=== PATIENT | male | born 1960 | race Caucasian/White ===

== ENCOUNTER 2016-12-11 13:48 | Inpatient (IN) ==
[2016-12-11] MEDS ORDERED: ONDANSETRON 4 MG/2 ML VIAL IV PRN (13:52)
[2016-12-11] MEDS ORDERED: GLUCAGON 1 MG VIAL IM PRN (13:52)
[2016-12-11] MEDS ORDERED: ACETAMINOPHEN 325 MG TABLET PO PRN (13:52)
[2016-12-11] MEDS ORDERED: DEXTROSE 50% 25 GM/50 ML VIAL IV PRN (13:52)
[2016-12-11] MEDS ORDERED: INFLUENZA VIRUS VACCINE 0.5 ML SYRINGE IM ONE (15:42)
[2016-12-11 16:44] LABS: Basophils # 0.1 10*3/uL (0.0-0.2); Basophils % 0.5 % (0.0-0.8); Eosinophils # 0.2 10*3/uL (0.0-0.87); Eosinophils % 1.9 % (0.00-10.9); Hematocrit 44.2 VOL% (42.0-52.0); Hemoglobin 14.5 GM/DL (14.0-18.0); Immature Granulocytes % 0.8 %; Immature Granulocytes Absolute 0.08 #; Lymphocytes # 2.2 10*3/uL (1.4-4.0); Lymphocytes % 22.7 % (21.2-54.2); Mean Corpuscular HGB Conc 32.8 GM/DL (32-36); Mean Corpuscular Hemoglobin 29 PG (27-34); Mean Platelet Volume 10.5 FL (9.6-12.0); Monocytes # 1.3 10*3/uL (0.11-0.8); Monocytes % 13.1 % (1.7-12.7); Neutrophils # 5.9 10*3/uL (1.4-7.4); Platelet Count 335 T/CUMM (130-400); Red Blood Count 5.02 MC/CUMM (3.8-5.5); Red Cell Distribution Width 14.6 % (9.3-17.3); White Blood Count 9.7 T/CUMM (4-12)
[2016-12-11 17:11] LABS: Alanine Aminotransferase 37 U/L (16-61); Albumin 3.9 G/DL (3.4-5.0); Alkaline Phosphatase 156 U/L (45-117); Aspartate Amino Transferase 27 U/L (0-37); Bilirubin,Total < 0.39 MG/DL (0.2-1.0); Blood Urea Nitrogen 30 MG/DL (7-18); Calcium 9.8 MG/DL (8.5-10.1); Glucose 152 MG/DL (74-106); Potassium 4.7 MMOL/L (3.5-5.1); Sodium 136 MMOL/L (136-145); Total Protein 8.2 G/DL (6.4-8.3)
[2016-12-11] MEDS: SODIUM CHLORIDE 0.45% 1,000 ML IV SCH (18:49)
[2016-12-11] MEDS: INSULIN REGULAR 100 UNIT/ML SUBCUT SCH ×2 (18:50→21:21)
[2016-12-11] MEDS: ENOXAPARIN 40 MG/0.4 ML SYRINGE SUBCUT SCH (18:50)
[2016-12-11] MEDS: DOCUSATE SODIUM 100 MG CAPSULE PO SCH (21:21)
[2016-12-11] MEDS: LEVOFLOXACIN INJ 750 MG in PREMIX 1 EACH IV SCH (21:22)
[2016-12-11 21:58] LABS: Apearance,Urine CLEAR (Clear); Bilirubin,Urine Negative (Negative); Blood, Urine Negative (Negative); Glucose,Urine (UA) >=500 mg/dL (Negative); Ketones,Urine 20 mg/dL (Negative); Nitrite,Urine Negative (Negative); Protein,Urine Negative; RBC,Urine 1 /HPF (0-4); Urine Color Yellow (Yellow); Urine Specific Gravity 1.025 (1.001-1.035); Urine Urobilinogen < 2.0 EU/DL (0.2-1.0); WBC,Urine 18 /HPF (0-6)
[2016-12-12 05:58] LABS: Basophils % 0.4 % (0.0-0.8); Eosinophils # 0.2 10*3/uL (0.0-0.87); Eosinophils % 1.8 % (0.00-10.9); Hemoglobin 15.4 GM/DL (14.0-18.0); Immature Granulocytes % 1.1 %; Immature Granulocytes Absolute 0.12 #; Lymphocytes # 2.1 10*3/uL (1.4-4.0); Mean Corpuscular HGB Conc 33.5 GM/DL (32-36); Mean Corpuscular Hemoglobin 29 PG (27-34); Mean Platelet Volume 10.8 FL (9.6-12.0); Monocytes # 1.4 10*3/uL (0.11-0.8); Monocytes % 13.1 % (1.7-12.7); Neutrophils # 7.1 10*3/uL (1.4-7.4); Neutrophils % 64.6 % (38.7-73.9); Platelet Count 335 T/CUMM (130-400); Red Blood Count 5.29 MC/CUMM (3.8-5.5); Red Cell Distribution Width 14.4 % (9.3-17.3)
[2016-12-12 06:30] LABS: Calcium 9.9 MG/DL (8.5-10.1); Osmolality,Calculated 277.1 MOS/KG (273-304); Potassium 4.4 MMOL/L (3.5-5.1)
[2016-12-12 06:33] LABS: Risk Ratio 4.6; VLDL CHOLESTEROL 36.6 MG/DL
[2016-12-12] MEDS ORDERED: DIAZEPAM 5 MG TABLET PO ONE (08:03)
[2016-12-12] MEDS: INSULIN REGULAR 100 UNIT/ML SUBCUT SCH ×4 (08:53→21:14)
[2016-12-12] MEDS: HYDROmorphone 2 MG/1 ML VIAL IV PRN ×2 (10:01→15:03)
[2016-12-12] MEDS: DOCUSATE SODIUM 100 MG CAPSULE PO SCH ×2 (10:22→21:14)
[2016-12-12] MEDS: PANTOPRAZOLE 40 MG TABLET PO SCH (10:22)
[2016-12-12] MEDS ORDERED: PROPOFOL 200 MG/20 ML VIAL IV ONE ×2 (11:38→15:11)
[2016-12-12] MEDS ORDERED: fentaNYL 100 MCG/2 ML VIAL ONE (11:39)
[2016-12-12] MEDS ORDERED: DESFLURANE 1 UNIT/15 MINUTE INH ONE (11:39)
[2016-12-12] MEDS ORDERED: MIDAZOLAM 2 MG/2 ML VIAL ONE (11:39)
[2016-12-12] MEDS ORDERED: SUCCINYLCHOLINE 200 MG/10 ML VIAL ONE ×2 (11:39→15:11)
[2016-12-12] MEDS ORDERED: ACETAMINOPHEN 1,000 MG/100 ML VIAL IV ONE (11:39)
[2016-12-12] MEDS ORDERED: hydrALAZINE 20 MG/1 ML VIAL ONE (11:51)
[2016-12-12] MEDS ORDERED: hydrALAZINE 20 MG/1 ML VIAL IV ONE ×2 (11:54→12:08)
[2016-12-12] MEDS ORDERED: ONDANSETRON 4 MG/2 ML VIAL ONE ×2 (12:12→15:11)
[2016-12-12] MEDS ORDERED: ONDANSETRON 4 MG/2 ML VIAL IV PRN (12:16)
[2016-12-12] MEDS ORDERED: LABETALOL 20 MG/4 ML SYRINGE IV ONE (12:21)
[2016-12-12] MEDS ORDERED: LIDOCAINE 1% 5 ML VIAL ONE (15:11)
[2016-12-12] MEDS ORDERED: ROCURONIUM 100 MG/10 ML VIAL IV ONE (15:11)
[2016-12-12] MEDS: SODIUM CHLORIDE 0.45% 1,000 ML IV SCH ×2 (16:22→20:02)
[2016-12-12] MEDS: PIPERACILLIN/TAZOBACTAM 3,375 MG in SODIUM CHLORIDE 0.9% 100 ML IV SCH (17:52)
[2016-12-12] MEDS: ENOXAPARIN 40 MG/0.4 ML SYRINGE SUBCUT SCH (21:14)
[2016-12-12] MEDS: LEVOFLOXACIN INJ 750 MG in PREMIX 1 EACH IV SCH (21:14)
[2016-12-12] MEDS: LINEZOLID INJ 600 MG in PREMIX 1 EACH IV SCH (21:15)
[2016-12-13] MEDS: PIPERACILLIN/TAZOBACTAM 3,375 MG in SODIUM CHLORIDE 0.9% 100 ML IV SCH ×3 (01:31→19:13)
[2016-12-13] MEDS: SODIUM CHLORIDE 0.45% 1,000 ML IV SCH ×2 (04:12→17:35)
[2016-12-13] MEDS: DOCUSATE SODIUM 100 MG CAPSULE PO SCH ×2 (10:18→23:13)
[2016-12-13] MEDS: INSULIN REGULAR 100 UNIT/ML SUBCUT SCH ×4 (10:18→22:51)
[2016-12-13] MEDS: PANTOPRAZOLE 40 MG TABLET PO SCH (10:18)
[2016-12-13] MEDS: LINEZOLID INJ 600 MG in PREMIX 1 EACH IV SCH ×2 (10:20→23:13)
[2016-12-13] MEDS: LEVOFLOXACIN INJ 750 MG in PREMIX 1 EACH IV SCH (22:00)
[2016-12-13] MEDS: HYDROmorphone 2 MG/1 ML VIAL IV PRN (22:47)
[2016-12-13] MEDS: ENOXAPARIN 40 MG/0.4 ML SYRINGE SUBCUT SCH (22:53)
[2016-12-14] MEDS: PIPERACILLIN/TAZOBACTAM 3,375 MG in SODIUM CHLORIDE 0.9% 100 ML IV SCH ×3 (02:08→17:10)
[2016-12-14] MEDS: INSULIN REGULAR 100 UNIT/ML SUBCUT SCH ×4 (09:18→21:16)
[2016-12-14] MEDS: DOCUSATE SODIUM 100 MG CAPSULE PO SCH ×2 (09:19→21:19)
[2016-12-14] MEDS: PANTOPRAZOLE 40 MG TABLET PO SCH (09:19)
[2016-12-14] MEDS: LINEZOLID INJ 600 MG in PREMIX 1 EACH IV SCH ×2 (09:20→21:13)
[2016-12-14] MEDS: SODIUM CHLORIDE 0.45% 1,000 ML IV SCH ×3 (09:26→19:30)
[2016-12-14] MEDS: ENOXAPARIN 40 MG/0.4 ML SYRINGE SUBCUT SCH (21:15)
[2016-12-14] MEDS: LEVOFLOXACIN INJ 750 MG in PREMIX 1 EACH IV SCH (22:18)
[2016-12-15] MEDS: PIPERACILLIN/TAZOBACTAM 3,375 MG in SODIUM CHLORIDE 0.9% 100 ML IV SCH ×3 (01:27→17:58)
[2016-12-15] MEDS ORDERED: ALUMINUM/MAGNES/SIMETH MAX STR 30 ML UDCUP PO PRN (03:26)
[2016-12-15 05:27] LABS: Basophils # 0.1 10*3/uL (0.0-0.2); Basophils % 0.7 % (0.0-0.8); Eosinophils # 0.2 10*3/uL (0.0-0.87); Eosinophils % 3.6 % (0.00-10.9); Hematocrit 41.8 VOL% (42.0-52.0); Hemoglobin 13.8 GM/DL (14.0-18.0); Immature Granulocytes % 0.9 %; Immature Granulocytes Absolute 0.06 #; Lymphocytes % 29.6 % (21.2-54.2); Mean Corpuscular Hemoglobin 29 PG (27-34); Mean Corpuscular Volume 87.3 FL (87-102); Mean Platelet Volume 10.7 FL (9.6-12.0); Monocytes % 14.2 % (1.7-12.7); Neutrophils # 3.4 10*3/uL (1.4-7.4); Platelet Count 280 T/CUMM (130-400); Red Blood Count 4.79 MC/CUMM (3.8-5.5); Red Cell Distribution Width 14.4 % (9.3-17.3); White Blood Count 6.8 T/CUMM (4-12)
[2016-12-15] MEDS: HYDROmorphone 2 MG/1 ML VIAL IV PRN ×2 (05:33→20:47)
[2016-12-15] MEDS: SODIUM CHLORIDE 0.45% 1,000 ML IV SCH ×2 (05:37→17:09)
[2016-12-15 06:03] LABS: Calcium 8.6 MG/DL (8.5-10.1); Magnesium 2.2 MG/DL (1.8-2.4); Osmolality,Calculated 280.5 MOS/KG (273-304); Potassium 4.1 MMOL/L (3.5-5.1)
[2016-12-15] MEDS: INSULIN REGULAR 100 UNIT/ML SUBCUT SCH ×4 (08:55→20:50)
[2016-12-15] MEDS: DOCUSATE SODIUM 100 MG CAPSULE PO SCH ×2 (08:57→20:47)
[2016-12-15] MEDS: PANTOPRAZOLE 40 MG TABLET PO SCH (08:57)
[2016-12-15] MEDS: LINEZOLID INJ 600 MG in PREMIX 1 EACH IV SCH ×2 (09:58→22:30)
[2016-12-15] MEDS: ENOXAPARIN 40 MG/0.4 ML SYRINGE SUBCUT SCH (20:47)
[2016-12-15] MEDS: LEVOFLOXACIN INJ 750 MG in PREMIX 1 EACH IV SCH (20:52)
[2016-12-16] MEDS: PIPERACILLIN/TAZOBACTAM 3,375 MG in SODIUM CHLORIDE 0.9% 100 ML IV SCH ×2 (01:47→10:16)
[2016-12-16] MEDS: HYDROmorphone 2 MG/1 ML VIAL IV PRN (04:41)
[2016-12-16] MEDS: SODIUM CHLORIDE 0.45% 1,000 ML IV SCH (04:45)
[2016-12-16] MEDS ORDERED: PIOGLITAZONE 45 MG TABLET PO SCH (09:00)
[2016-12-16] MEDS ORDERED: TRIAMTERENE/HCTZ 37.5-25 MG CAPSULE PO SCH (09:00)
[2016-12-16] MEDS ORDERED: glipiZIDE 10 MG TABLET PO SCH (09:00)
[2016-12-16] MEDS ORDERED: LOSARTAN 50 MG TABLET PO SCH (09:00)
[2016-12-16] MEDS ORDERED: GABAPENTIN 400 MG CAPSULE PO SCH (09:00)
[2016-12-16] MEDS ORDERED: NON-FORMULARY MEDICATION (Canagliflozin [Invokana] 100 MG) PO SCH (09:00)
[2016-12-16] MEDS: DOCUSATE SODIUM 100 MG CAPSULE PO SCH (10:03)
[2016-12-16] MEDS: INSULIN REGULAR 100 UNIT/ML SUBCUT SCH ×2 (10:03→12:17)
[2016-12-16] MEDS: PANTOPRAZOLE 40 MG TABLET PO SCH (10:03)
[2016-12-16] MEDS: LINEZOLID INJ 600 MG in PREMIX 1 EACH IV SCH (10:16)
[2016-12-16 11:51] VITALS: BP 172/97
== END 2016-12-16 15:21 | disposition home health service (06) | DRG 623 ==
LOC: N.2E 15:06
PROVIDERS: ADMIT Family Medicine; ATTEND Family Medicine

== ENCOUNTER 2017-04-07 08:31 | Inpatient (IN) ==
[2017-04-04 11:57] LABS: Basophils % 0.2 % (0.0-0.8); Eosinophils # 0.1 10*3/uL (0.0-0.87); Eosinophils % 0.5 % (0.00-10.9); Hematocrit 38.5 VOL% (42.0-52.0); Hemoglobin 12.2 GM/DL (14.0-18.0); Immature Granulocytes % 0.6 %; Immature Granulocytes Absolute 0.09 #; Lymphocytes # 1.7 10*3/uL (1.4-4.0); Lymphocytes % 11.3 % (21.2-54.2); Mean Corpuscular HGB Conc 31.7 GM/DL (32-36); Mean Corpuscular Hemoglobin 27 PG (27-34); Mean Corpuscular Volume 84.1 FL (87-102); Mean Platelet Volume 9.9 FL (9.6-12.0); Monocytes # 1.5 10*3/uL (0.11-0.8); Monocytes % 10.4 % (1.7-12.7); Neutrophils # 11.4 10*3/uL (1.4-7.4); Platelet Count 369 T/CUMM (130-400); Red Blood Count 4.58 MC/CUMM (3.8-5.5); Red Cell Distribution Width 15.9 % (9.3-17.3); White Blood Count 14.8 T/CUMM (4-12)
[2017-04-04 12:07] LABS: Apearance,Urine CLEAR (Clear); Bilirubin,Urine Negative (Negative); Blood, Urine Negative (Negative); Glucose,Urine (UA) >=500 mg/dL (Negative); Hyaline Casts,Urine 1 /LPF (0-3); Ketones,Urine Negative (Negative); Mucus,Urine Occasional /LPF (Occasional); Nitrite,Urine Negative (Negative); Protein,Urine Negative; RBC,Urine 3 /HPF (0-4); Squamous Epithelial Cell,Urine Occasional /HPF (0-10); Urine Color Yellow (Yellow); Urine Specific Gravity 1.026 (1.001-1.035); Urine Urobilinogen < 2.0 EU/DL (0.2-1.0); WBC,Urine 79 /HPF (0-6)
[2017-04-04 12:17] LABS: Potassium 3.8 MMOL/L (3.5-5.1)
[2017-04-07] MEDS ORDERED: LACTATED RINGERS 1,000 ML IV SCH (09:30)
[2017-04-07] MEDS ORDERED: SCOPOLAMINE 1.5 MG PATCH TRANSDERM ONE ×2 (09:56→10:50)
[2017-04-07] MEDS ORDERED: FAMOTIDINE 20 MG TABLET PO ONE (09:56)
[2017-04-07] MEDS ORDERED: DIAZEPAM 5 MG TABLET PO ONE (09:56)
[2017-04-07] MEDS ORDERED: DIAZEPAM 5 MG TABLET ONE (10:50)
[2017-04-07] MEDS ORDERED: FAMOTIDINE 20 MG TABLET ONE (10:50)
[2017-04-07] MEDS ORDERED: ROPIVACAINE 0.5% 30 ML VIAL ONE (11:29)
[2017-04-07] MEDS ORDERED: fentaNYL 100 MCG/2 ML VIAL ONE (11:32)
[2017-04-07] MEDS ORDERED: MIDAZOLAM 2 MG/2 ML VIAL ONE (11:32)
[2017-04-07] MEDS ORDERED: ceFAZolin 2,000 MG in PREMIX 1 EACH IV ONE (12:00)
[2017-04-07] MEDS ORDERED: BUPIVACAINE 0.5% 50 ML VIAL ONE (12:02)
[2017-04-07] MEDS ORDERED: VANCOMYCIN 1,000 MG VIAL ONE (13:12)
[2017-04-07] MEDS ORDERED: TOBRAMYCIN 1.2 GM VIAL TOP ONE (13:12)
[2017-04-07] MEDS ORDERED: GLUCAGON 1 MG VIAL IM PRN (13:42)
[2017-04-07] MEDS ORDERED: DEXTROSE 50% 25 GM/50 ML VIAL IV PRN (13:42)
[2017-04-07] MEDS ORDERED: ONDANSETRON 4 MG/2 ML VIAL IV PRN (13:43)
[2017-04-07] MEDS ORDERED: MAGNESIUM HYDROXIDE SUSP 30 ML UDCUP PO PRN (13:43)
[2017-04-07] MEDS ORDERED: MORPHINE 2 MG/1 ML SYRINGE IV PRN ×2 (13:43)
[2017-04-07] MEDS ORDERED: ACETAMINOPHEN 325 MG TABLET PO PRN (13:43)
[2017-04-07] MEDS ORDERED: PROPOFOL 200 MG/20 ML VIAL IV ONE (13:50)
[2017-04-07] MEDS ORDERED: SEVOFLURANE 1 UNIT/15 MINUTE INH ONE (13:51)
[2017-04-07] MEDS ORDERED: AMPICILLIN/SULBACTAM 3,000 MG in SODIUM CHLORIDE 0.9% 100 ML IV SCH (14:00)
[2017-04-07] MEDS ORDERED: ceFAZolin 2,000 MG in PREMIX 1 EACH IV SCH (14:00)
[2017-04-07] MEDS: INSULIN LISPRO 100 UNIT/ML SUBCUT SCH ×2 (17:32→21:22)
[2017-04-07] MEDS: OXACILLIN 2,000 MG in SODIUM CHLORIDE 0.9% 100 ML IV SCH ×2 (18:23→21:25)
[2017-04-07] MEDS: KETOROLAC 30 MG/1 ML VIAL IV PRN (21:20)
[2017-04-07] MEDS: LOSARTAN 50 MG TABLET PO SCH (21:21)
[2017-04-07] MEDS: GABAPENTIN 400 MG CAPSULE PO SCH (21:35)
[2017-04-08] MEDS: OXACILLIN 2,000 MG in SODIUM CHLORIDE 0.9% 100 ML IV SCH ×7 (01:05→23:47)
[2017-04-08 04:22] LABS: Basophils % 0.5 % (0.0-0.8); Eosinophils # 0.3 10*3/uL (0.0-0.87); Eosinophils % 3.1 % (0.00-10.9); Hematocrit 35.3 VOL% (42.0-52.0); Hemoglobin 10.9 GM/DL (14.0-18.0); Immature Granulocytes % 0.5 %; Immature Granulocytes Absolute 0.04 #; Lymphocytes # 2.3 10*3/uL (1.4-4.0); Lymphocytes % 27.6 % (21.2-54.2); Mean Corpuscular HGB Conc 30.9 GM/DL (32-36); Mean Corpuscular Hemoglobin 26 PG (27-34); Mean Corpuscular Volume 85.3 FL (87-102); Mean Platelet Volume 10.2 FL (9.6-12.0); Monocytes # 1.5 10*3/uL (0.11-0.8); Monocytes % 17.6 % (1.7-12.7); Neutrophils # 4.3 10*3/uL (1.4-7.4); Neutrophils % 50.7 % (38.7-73.9); Platelet Count 384 T/CUMM (130-400); Red Blood Count 4.14 MC/CUMM (3.8-5.5); Red Cell Distribution Width 15.5 % (9.3-17.3); White Blood Count 8.5 T/CUMM (4-12)
[2017-04-08 04:53] LABS: Calcium 9.2 MG/DL (8.5-10.1); Osmolality,Calculated 282.5 MOS/KG (273-304); Potassium 4.1 MMOL/L (3.5-5.1)
[2017-04-08 05:09] LABS: Band Neutrophils 1 % (0-10); Eosinophils 5 % (0-10); Giant Platelets Few; Hypochromasia 1+; Lymphocytes 29 % (20-55); Microcytosis Slight; Platelet Estimate Adequate; Segmented Neutrophils 51 % (50-85); Total Cells Counted 100
[2017-04-08] MEDS ORDERED: FONDAPARINUX 2.5 MG/0.5 ML SYRINGE SUBCUT SCH (08:00)
[2017-04-08] MEDS: INSULIN LISPRO 100 UNIT/ML SUBCUT SCH ×4 (08:30→20:39)
[2017-04-08] MEDS: PIOGLITAZONE 45 MG TABLET PO SCH (08:33)
[2017-04-08] MEDS: TRIAMTERENE/HCTZ 37.5-25 MG CAPSULE PO SCH (08:37)
[2017-04-08] MEDS: GABAPENTIN 400 MG CAPSULE PO SCH ×2 (08:37→20:47)
[2017-04-08] MEDS ORDERED: Canagliflozin [Invokana] 100 MG PO SCH (09:00)
[2017-04-08] MEDS ORDERED: INSULIN DEGLUDEC 12 UNIT SQ SCH (09:00)
[2017-04-08] MEDS: LEVOFLOXACIN INJ 500 MG in PREMIX 1 EACH IV SCH (18:49)
[2017-04-08] MEDS: LOSARTAN 50 MG TABLET PO SCH (20:40)
[2017-04-08] MEDS: KETOROLAC 30 MG/1 ML VIAL IV PRN (20:41)
[2017-04-09] MEDS: OXACILLIN 2,000 MG in SODIUM CHLORIDE 0.9% 100 ML IV SCH ×5 (03:59→20:42)
[2017-04-09 05:28] LABS: Basophils # 0.1 10*3/uL (0.0-0.2); Basophils % 0.6 % (0.0-0.8); Eosinophils # 0.4 10*3/uL (0.0-0.87); Hematocrit 36.9 VOL% (42.0-52.0); Hemoglobin 11.2 GM/DL (14.0-18.0); Immature Granulocytes % 1.5 %; Immature Granulocytes Absolute 0.12 #; Lymphocytes # 2.5 10*3/uL (1.4-4.0); Lymphocytes % 30.9 % (21.2-54.2); Mean Corpuscular HGB Conc 30.4 GM/DL (32-36); Mean Corpuscular Hemoglobin 26 PG (27-34); Mean Corpuscular Volume 86.4 FL (87-102); Mean Platelet Volume 9.7 FL (9.6-12.0); Monocytes # 1.2 10*3/uL (0.11-0.8); Monocytes % 14.4 % (1.7-12.7); Neutrophils # 3.8 10*3/uL (1.4-7.4); Neutrophils % 47.6 % (38.7-73.9); Platelet Count 390 T/CUMM (130-400); Red Blood Count 4.27 MC/CUMM (3.8-5.5); Red Cell Distribution Width 15.5 % (9.3-17.3)
[2017-04-09 06:07] LABS: Alanine Aminotransferase 12 U/L (16-61); Albumin 2.6 G/DL (3.4-5.0); Alkaline Phosphatase 190 U/L (45-117); Aspartate Amino Transferase 15 U/L (0-37); Bilirubin,Total < 0.39 MG/DL (0.2-1.0); Blood Urea Nitrogen 27 MG/DL (7-18); Calcium 8.5 MG/DL (8.5-10.1); Glucose 142 MG/DL (74-106); Osmolality,Calculated 281.7 MOS/KG (273-304); Potassium 4.6 MMOL/L (3.5-5.1); Sodium 138 MMOL/L (136-145); Total Protein 6.8 G/DL (6.4-8.3)
[2017-04-09] MEDS: INSULIN LISPRO 100 UNIT/ML SUBCUT SCH ×4 (07:07→22:47)
[2017-04-09] MEDS ORDERED: MIDAZOLAM 2 MG/2 ML VIAL ONE (10:04)
[2017-04-09] MEDS ORDERED: PROPOFOL 200 MG/20 ML VIAL IV ONE (10:04)
[2017-04-09] MEDS ORDERED: fentaNYL 100 MCG/2 ML VIAL ONE (10:04)
[2017-04-09] MEDS ORDERED: ONDANSETRON 4 MG/2 ML VIAL ONE (10:05)
[2017-04-09] MEDS: PIOGLITAZONE 45 MG TABLET PO SCH (11:26)
[2017-04-09] MEDS: TRIAMTERENE/HCTZ 37.5-25 MG CAPSULE PO SCH (11:27)
[2017-04-09] MEDS: GABAPENTIN 400 MG CAPSULE PO SCH ×2 (11:27→20:42)
[2017-04-09] MEDS: KETOROLAC 30 MG/1 ML VIAL IV PRN (14:40)
[2017-04-09] MEDS ORDERED: HYDROmorphone 2 MG/1 ML VIAL IV PRN (16:51)
[2017-04-09] MEDS: LEVOFLOXACIN INJ 500 MG in PREMIX 1 EACH IV SCH (18:40)
[2017-04-09] MEDS: FONDAPARINUX 2.5 MG/0.5 ML SYRINGE SUBCUT SCH (20:42)
[2017-04-09] MEDS: LOSARTAN 50 MG TABLET PO SCH (20:42)
[2017-04-09] MEDS: HYDROmorphone 2 MG/1 ML VIAL IV PRN (20:42)
[2017-04-10] MEDS: OXACILLIN 2,000 MG in SODIUM CHLORIDE 0.9% 100 ML IV SCH ×6 (00:28→21:29)
[2017-04-10] MEDS: HYDROmorphone 2 MG/1 ML VIAL IV PRN ×4 (05:26→21:31)
[2017-04-10 06:38] LABS: Basophils % 0.5 % (0.0-0.8); Eosinophils # 0.3 10*3/uL (0.0-0.87); Eosinophils % 3.8 % (0.00-10.9); Hematocrit 35.8 VOL% (42.0-52.0); Hemoglobin 11.4 GM/DL (14.0-18.0); Immature Granulocytes Absolute 0.08 #; Lymphocytes # 1.9 10*3/uL (1.4-4.0); Lymphocytes % 23.7 % (21.2-54.2); Mean Corpuscular HGB Conc 31.8 GM/DL (32-36); Mean Corpuscular Hemoglobin 27 PG (27-34); Mean Corpuscular Volume 84.2 FL (87-102); Mean Platelet Volume 9.9 FL (9.6-12.0); Monocytes # 0.9 10*3/uL (0.11-0.8); Monocytes % 10.9 % (1.7-12.7); Neutrophils # 4.8 10*3/uL (1.4-7.4); Neutrophils % 60.1 % (38.7-73.9); Platelet Count 395 T/CUMM (130-400); Red Blood Count 4.25 MC/CUMM (3.8-5.5); Red Cell Distribution Width 15.3 % (9.3-17.3); White Blood Count 7.9 T/CUMM (4-12)
[2017-04-10] MEDS: INSULIN LISPRO 100 UNIT/ML SUBCUT SCH ×4 (07:49→21:30)
[2017-04-10] MEDS: PIOGLITAZONE 45 MG TABLET PO SCH (09:57)
[2017-04-10] MEDS: FLUCONAZOLE 200 MG TABLET PO SCH (09:58)
[2017-04-10] MEDS: TRIAMTERENE/HCTZ 37.5-25 MG CAPSULE PO SCH (09:58)
[2017-04-10] MEDS: GABAPENTIN 400 MG CAPSULE PO SCH ×2 (09:58→21:29)
[2017-04-10] MEDS: LEVOFLOXACIN INJ 500 MG in PREMIX 1 EACH IV SCH (18:27)
[2017-04-10] MEDS: FONDAPARINUX 2.5 MG/0.5 ML SYRINGE SUBCUT SCH (21:29)
[2017-04-10] MEDS: LOSARTAN 50 MG TABLET PO SCH (21:29)
[2017-04-11] MEDS: OXACILLIN 2,000 MG in SODIUM CHLORIDE 0.9% 100 ML IV SCH ×3 (00:51→08:04)
[2017-04-11] MEDS: HYDROmorphone 2 MG/1 ML VIAL IV PRN (04:18)
[2017-04-11 06:59] LABS: Calcium 8.7 MG/DL (8.5-10.1); Osmolality,Calculated 279.7 MOS/KG (273-304); Potassium 4.6 MMOL/L (3.5-5.1)
[2017-04-11] MEDS: INSULIN LISPRO 100 UNIT/ML SUBCUT SCH (07:40)
[2017-04-11 07:42] VITALS: BP 123/65
[2017-04-11] MEDS: PIOGLITAZONE 45 MG TABLET PO SCH (08:00)
[2017-04-11] MEDS: TRIAMTERENE/HCTZ 37.5-25 MG CAPSULE PO SCH (08:01)
[2017-04-11] MEDS: GABAPENTIN 400 MG CAPSULE PO SCH (08:02)
[2017-04-11] MEDS: FLUCONAZOLE 200 MG TABLET PO SCH (08:02)
== END 2017-04-11 10:00 | disposition home health service (06) | DRG 617 ==
LOC: N.OR 08:31 → N.SDSINP 08:33 → N.3E 13:46
PROVIDERS: ADMIT Orthopaedic Surgery; ATTEND Orthopaedic Surgery

== ENCOUNTER 2018-04-09 13:14 | Inpatient (IN) ==
[2018-04-09] MEDS ORDERED: FAMOTIDINE 20 MG TABLET PO PRN (13:54)
[2018-04-09] MEDS ORDERED: MAGNESIUM HYDROXIDE SUSP 30 ML UDCUP PO PRN (13:54)
[2018-04-09] MEDS ORDERED: DEXTROSE 50% 25 GM/50 ML VIAL IV PRN (13:54)
[2018-04-09] MEDS ORDERED: GLUCAGON 1 MG VIAL IM PRN ×2 (13:54→18:40)
[2018-04-09] MEDS ORDERED: ONDANSETRON 4 MG/2 ML VIAL IV PRN (13:54)
[2018-04-09] MEDS ORDERED: ALUMINUM/MAGNES/SIMETH MAX STR 30 ML UDCUP PO PRN (13:54)
[2018-04-09] MEDS ORDERED: ACETAMINOPHEN 325 MG TABLET PO PRN (13:59)
[2018-04-09] MEDS ORDERED: PNEUMOCOCCAL VACCINE (23 VALENT) 0.5 ML VIAL IM ONE (15:27)
[2018-04-09] MEDS ORDERED: INFLUENZA VIRUS VACCINE 0.5 ML SYRINGE IM ONE (15:27)
[2018-04-09 16:23] LABS: Basophils % 0.2 % (0.0-0.8); Eosinophils # 0.1 10*3/uL (0.0-0.87); Eosinophils % 0.3 % (0.00-10.9); Hematocrit 39.4 VOL% (42.0-52.0); Hemoglobin 12.6 GM/DL (14.0-18.0); Immature Granulocytes % 0.6 %; Immature Granulocytes Absolute 0.11 #; Lymphocytes # 1.3 10*3/uL (1.4-4.0); Lymphocytes % 6.8 % (21.2-54.2); Mean Corpuscular Hemoglobin 29 PG (27-34); Mean Corpuscular Volume 89.7 FL (87-102); Mean Platelet Volume 10.7 FL (9.6-12.0); Monocytes # 1.5 10*3/uL (0.11-0.8); Monocytes % 7.8 % (1.7-12.7); Neutrophils # 15.7 10*3/uL (1.4-7.4); Neutrophils % 84.3 % (38.7-73.9); Platelet Count 241 T/CUMM (130-400); Red Blood Count 4.39 MC/CUMM (3.8-5.5); Red Cell Distribution Width 13.2 % (9.3-17.3); White Blood Count 18.6 T/CUMM (4-12)
[2018-04-09 16:43] LABS: Albumin 3.1 G/DL (3.4-5.0); Bilirubin,Total 0.9 MG/DL (0.2-1.0); Calcium 8.7 MG/DL (8.5-10.1); Osmolality,Calculated 280.1 MOS/KG (273-304); Potassium 3.6 MMOL/L (3.5-5.1); Total Protein 7.7 G/DL (6.4-8.3)
[2018-04-09 16:47] LABS: PT Patient Result 10.7 SECS; Partial Thromboplastin Time 31.3 SECS (0-40)
[2018-04-09] MEDS: PIPERACILLIN/TAZOBACTAM 3,375 MG in SODIUM CHLORIDE 0.9% 100 ML IV SCH ×2 (17:19→23:11)
[2018-04-09] MEDS: INSULIN LISPRO 100 UNIT/ML SUBCUT SCH ×2 (17:28→23:16)
[2018-04-09 21:01] LABS: Apearance,Urine CLEAR (Clear); Bilirubin,Urine Negative (Negative); Blood, Urine Negative (Negative); Glucose,Urine (UA) 150 mg/dL (Negative); Hyaline Casts,Urine 12 /LPF (0-3); Ketones,Urine Negative (Negative); Nitrite,Urine Negative (Negative); Protein,Urine 30 MG/DL; RBC,Urine 1 /HPF (0-4); Squamous Epithelial Cell,Urine Occasional /HPF (0-10); Urine Color Yellow (Yellow); Urine Specific Gravity 1.021 (1.001-1.035); WBC,Urine 14 /HPF (0-6)
[2018-04-09] MEDS: DOCUSATE SODIUM 100 MG CAPSULE PO SCH (23:13)
[2018-04-09] MEDS: LOSARTAN 50 MG TABLET PO SCH (23:14)
[2018-04-09] MEDS: GABAPENTIN 400 MG CAPSULE PO SCH (23:16)
[2018-04-10] MEDS ORDERED: LACTATED RINGERS 1,000 ML IV SCH (00:01)
[2018-04-10] MEDS: POTASSIUM CHLORIDE INJ 20 MEQ in LACTATED RINGERS 1,000 ML IV SCH ×2 (01:13→12:02)
[2018-04-10 05:45] LABS: Basophils % 0.2 % (0.0-0.8); Eosinophils % 0.2 % (0.00-10.9); Hematocrit 37.6 VOL% (42.0-52.0); Hemoglobin 11.9 GM/DL (14.0-18.0); Immature Granulocytes % 1.5 %; Immature Granulocytes Absolute 0.29 #; Lymphocytes # 1.1 10*3/uL (1.4-4.0); Lymphocytes % 5.4 % (21.2-54.2); Mean Corpuscular HGB Conc 31.6 GM/DL (32-36); Mean Corpuscular Hemoglobin 28 PG (27-34); Mean Corpuscular Volume 88.9 FL (87-102); Mean Platelet Volume 11.6 FL (9.6-12.0); Monocytes % 10.1 % (1.7-12.7); Neutrophils # 16.5 10*3/uL (1.4-7.4); Neutrophils % 82.6 % (38.7-73.9); Platelet Count 231 T/CUMM (130-400); Red Blood Count 4.23 MC/CUMM (3.8-5.5); Red Cell Distribution Width 13.2 % (9.3-17.3); White Blood Count 19.9 T/CUMM (4-12)
[2018-04-10] MEDS ORDERED: FAMOTIDINE 20 MG TABLET PO ONE (05:48)
[2018-04-10 06:18] LABS: Albumin 2.7 G/DL (3.4-5.0); Bilirubin,Total 2.1 MG/DL (0.2-1.0); Calcium 8.6 MG/DL (8.5-10.1); Potassium 3.3 MMOL/L (3.5-5.1); Risk Ratio 2.7; Thyroid Stimulating Hormone 0.633 uIU/ml (0.358-3.74); Total Protein 7.2 G/DL (6.4-8.3)
[2018-04-10] MEDS: PIPERACILLIN/TAZOBACTAM 3,375 MG in SODIUM CHLORIDE 0.9% 100 ML IV SCH ×3 (06:30→23:50)
[2018-04-10 06:37] LABS: Band Neutrophils 1 % (0-10); Eosinophils 1 % (0-10); Lymphocytes 3 % (20-55); Platelet Estimate Normal; Segmented Neutrophils 85 % (50-85); Total Cells Counted 100
[2018-04-10] MEDS ORDERED: diphenhydrAMINE CAP 25 MG CAPSULE PO PRN (07:37)
[2018-04-10] MEDS ORDERED: BACITRACIN OINT 0.9 GM PACK TOP ONE (08:00)
[2018-04-10] MEDS ORDERED: ONDANSETRON 4 MG/2 ML VIAL ONE (08:58)
[2018-04-10] MEDS ORDERED: MIDAZOLAM 2 MG/2 ML VIAL ONE (08:58)
[2018-04-10] MEDS ORDERED: fentaNYL 100 MCG/2 ML VIAL ONE (08:58)
[2018-04-10] MEDS ORDERED: PHENYLEPHRINE 1 MG/10 ML SYRINGE IV ONE (08:59)
[2018-04-10 09:39] LABS: Sedimentation Rate-Westergren 95 MM/HR (0-20)
[2018-04-10] MEDS: INSULIN LISPRO 100 UNIT/ML SUBCUT SCH ×4 (10:19→20:38)
[2018-04-10] MEDS: DOCUSATE SODIUM 100 MG CAPSULE PO SCH ×2 (10:27→20:40)
[2018-04-10] MEDS: TRIAMTERENE/HCTZ 37.5-25 MG CAPSULE PO SCH (10:27)
[2018-04-10] MEDS: GABAPENTIN 400 MG CAPSULE PO SCH ×3 (10:28→20:39)
[2018-04-10] MEDS: POTASSIUM CHLORIDE RIDER 10 MEQ in PREMIX 1 EACH IV PRN ×4 (12:51→22:12)
[2018-04-10] MEDS ORDERED: HYDROmorphone 2 MG/1 ML VIAL IV SCH (18:00)
[2018-04-10] MEDS: HYDROmorphone 2 MG/1 ML VIAL IV PRN ×2 (18:26→23:53)
[2018-04-10] MEDS: LOSARTAN 50 MG TABLET PO SCH (20:40)
[2018-04-11] MEDS: PIPERACILLIN/TAZOBACTAM 3,375 MG in SODIUM CHLORIDE 0.9% 100 ML IV SCH ×3 (01:25→18:30)
[2018-04-11 02:14] LABS: Basophils % 0.2 % (0.0-0.8); Eosinophils # 0.2 10*3/uL (0.0-0.87); Eosinophils % 1.3 % (0.00-10.9); Hematocrit 33.1 VOL% (42.0-52.0); Hemoglobin 10.5 GM/DL (14.0-18.0); Immature Granulocytes Absolute 0.36 #; Lymphocytes # 1.4 10*3/uL (1.4-4.0); Lymphocytes % 7.9 % (21.2-54.2); Mean Corpuscular HGB Conc 31.7 GM/DL (32-36); Mean Corpuscular Hemoglobin 29 PG (27-34); Mean Corpuscular Volume 91.9 FL (87-102); Monocytes # 2.4 10*3/uL (0.11-0.8); Monocytes % 13.2 % (1.7-12.7); Neutrophils # 13.4 10*3/uL (1.4-7.4); Neutrophils % 75.4 % (38.7-73.9); Platelet Count 248 T/CUMM (130-400); Red Cell Distribution Width 13.2 % (9.3-17.3); White Blood Count 17.8 T/CUMM (4-12)
[2018-04-11 02:18] LABS: Calcium 8.2 MG/DL (8.5-10.1); Osmolality,Calculated 280.1 MOS/KG (273-304); Potassium 4.1 MMOL/L (3.5-5.1)
[2018-04-11 04:14] LABS: Band Neutrophils 5 % (0-10); Eosinophils 2 % (0-10); Lymphocytes 9 % (20-55); Platelet Estimate Normal; Segmented Neutrophils 71 % (50-85); Total Cells Counted 100
[2018-04-11] MEDS: HYDROmorphone 2 MG/1 ML VIAL IV PRN ×3 (05:35→21:07)
[2018-04-11] MEDS: FONDAPARINUX 2.5 MG/0.5 ML SYRINGE SUBCUT SCH (08:32)
[2018-04-11] MEDS: TRIAMTERENE/HCTZ 37.5-25 MG CAPSULE PO SCH (08:33)
[2018-04-11] MEDS: PIOGLITAZONE 45 MG TABLET PO SCH (08:33)
[2018-04-11] MEDS: GABAPENTIN 400 MG CAPSULE PO SCH ×3 (08:33→21:05)
[2018-04-11] MEDS: INSULIN GLARGINE 100 UNIT/ML SUBCUT SCH (08:33)
[2018-04-11] MEDS: DOCUSATE SODIUM 100 MG CAPSULE PO SCH ×2 (08:33→21:05)
[2018-04-11] MEDS: INSULIN LISPRO 100 UNIT/ML SUBCUT SCH ×4 (08:34→21:11)
[2018-04-11] MEDS: LOSARTAN 50 MG TABLET PO SCH (21:04)
[2018-04-12] MEDS: PIPERACILLIN/TAZOBACTAM 3,375 MG in SODIUM CHLORIDE 0.9% 100 ML IV SCH ×3 (00:55→17:02)
[2018-04-12 05:52] LABS: Calcium 8.6 MG/DL (8.5-10.1); Osmolality,Calculated 277.1 MOS/KG (273-304)
[2018-04-12] MEDS: HYDROmorphone 2 MG/1 ML VIAL IV PRN ×3 (08:36→19:59)
[2018-04-12] MEDS: DOCUSATE SODIUM 100 MG CAPSULE PO SCH ×2 (08:37→20:00)
[2018-04-12] MEDS: TRIAMTERENE/HCTZ 37.5-25 MG CAPSULE PO SCH (08:37)
[2018-04-12] MEDS: GABAPENTIN 400 MG CAPSULE PO SCH ×3 (08:37→20:00)
[2018-04-12] MEDS: INSULIN LISPRO 100 UNIT/ML SUBCUT SCH ×4 (08:37→20:01)
[2018-04-12] MEDS: FONDAPARINUX 2.5 MG/0.5 ML SYRINGE SUBCUT SCH (08:37)
[2018-04-12] MEDS: PIOGLITAZONE 45 MG TABLET PO SCH (08:37)
[2018-04-12] MEDS: INSULIN GLARGINE 100 UNIT/ML SUBCUT SCH (08:38)
[2018-04-12] MEDS: LOSARTAN 50 MG TABLET PO SCH (20:00)
[2018-04-13] MEDS: PIPERACILLIN/TAZOBACTAM 3,375 MG in SODIUM CHLORIDE 0.9% 100 ML IV SCH (01:05)
[2018-04-13] MEDS: HYDROmorphone 2 MG/1 ML VIAL IV PRN ×6 (05:15→21:14)
[2018-04-13 05:23] LABS: Basophils # 0.1 10*3/uL (0.0-0.2); Basophils % 0.8 % (0.0-0.8); Eosinophils # 0.4 10*3/uL (0.0-0.87); Eosinophils % 3.2 % (0.00-10.9); Hematocrit 36.1 VOL% (42.0-52.0); Hemoglobin 11.4 GM/DL (14.0-18.0); Immature Granulocytes % 4.5 %; Immature Granulocytes Absolute 0.52 #; Lymphocytes % 17.7 % (21.2-54.2); Mean Corpuscular HGB Conc 31.6 GM/DL (32-36); Mean Corpuscular Hemoglobin 29 PG (27-34); Mean Corpuscular Volume 90.7 FL (87-102); Mean Platelet Volume 10.6 FL (9.6-12.0); Monocytes # 1.7 10*3/uL (0.11-0.8); Monocytes % 14.4 % (1.7-12.7); Neutrophils # 6.8 10*3/uL (1.4-7.4); Neutrophils % 59.4 % (38.7-73.9); Platelet Count 306 T/CUMM (130-400); Red Blood Count 3.98 MC/CUMM (3.8-5.5); Red Cell Distribution Width 13.1 % (9.3-17.3); White Blood Count 11.5 T/CUMM (4-12)
[2018-04-13 05:36] LABS: Calcium 9.1 MG/DL (8.5-10.1); Osmolality,Calculated 282.7 MOS/KG (273-304); Potassium 4.2 MMOL/L (3.5-5.1)
[2018-04-13 05:45] LABS: Band Neutrophils 2 % (0-10); Eosinophils 7 % (0-10); Hypochromasia 1+; Lymphocytes 10 % (20-55); Ovalocytes Slight; Platelet Estimate Adequate; Segmented Neutrophils 63 % (50-85); Total Cells Counted 100
[2018-04-13] MEDS: AMPICILLIN INJ 2,000 MG in SODIUM CHLORIDE 0.9% 100 ML IV SCH ×3 (09:06→19:57)
[2018-04-13] MEDS: INSULIN LISPRO 100 UNIT/ML SUBCUT SCH ×4 (09:07→22:50)
[2018-04-13] MEDS: INSULIN GLARGINE 100 UNIT/ML SUBCUT SCH (09:07)
[2018-04-13] MEDS: PIOGLITAZONE 45 MG TABLET PO SCH (10:19)
[2018-04-13] MEDS: DOCUSATE SODIUM 100 MG CAPSULE PO SCH ×2 (10:20→20:11)
[2018-04-13] MEDS: GABAPENTIN 400 MG CAPSULE PO SCH ×3 (10:38→20:10)
[2018-04-13] MEDS ORDERED: BUPIVACAINE 0.5% 50 ML VIAL ONE (10:40)
[2018-04-13] MEDS: TRIAMTERENE/HCTZ 37.5-25 MG CAPSULE PO SCH (10:45)
[2018-04-13] MEDS: LACTATED RINGERS 1,000 ML IV SCH (11:05)
[2018-04-13] MEDS ORDERED: BACITRACIN OINT 0.9 GM PACK TOP ONE (11:45)
[2018-04-13] MEDS ORDERED: MIDAZOLAM 2 MG/2 ML VIAL ONE (12:28)
[2018-04-13] MEDS ORDERED: PROPOFOL 200 MG/20 ML VIAL IV ONE (12:28)
[2018-04-13] MEDS ORDERED: SEVOFLURANE 1 UNIT/15 MINUTE INH ONE (12:28)
[2018-04-13] MEDS ORDERED: fentaNYL 100 MCG/2 ML VIAL ONE ×2 (12:29)
[2018-04-13] MEDS ORDERED: ONDANSETRON 4 MG/2 ML VIAL ONE (12:30)
[2018-04-13] MEDS ORDERED: ONDANSETRON 4 MG/2 ML VIAL IV PRN (12:39)
[2018-04-13] MEDS: LOSARTAN 50 MG TABLET PO SCH (20:10)
[2018-04-14] MEDS: AMPICILLIN INJ 2,000 MG in SODIUM CHLORIDE 0.9% 100 ML IV SCH ×4 (01:23→19:59)
[2018-04-14 05:59] LABS: Basophils # 0.1 10*3/uL (0.0-0.2); Eosinophils # 0.5 10*3/uL (0.0-0.87); Eosinophils % 4.9 % (0.00-10.9); Hematocrit 34.6 VOL% (42.0-52.0); Hemoglobin 10.8 GM/DL (14.0-18.0); Immature Granulocytes % 6.6 %; Immature Granulocytes Absolute 0.71 #; Lymphocytes # 2.4 10*3/uL (1.4-4.0); Lymphocytes % 22.5 % (21.2-54.2); Mean Corpuscular HGB Conc 31.2 GM/DL (32-36); Mean Corpuscular Hemoglobin 29 PG (27-34); Mean Corpuscular Volume 91.3 FL (87-102); Mean Platelet Volume 10.5 FL (9.6-12.0); Monocytes # 1.5 10*3/uL (0.11-0.8); Monocytes % 14.4 % (1.7-12.7); Neutrophils # 5.4 10*3/uL (1.4-7.4); Neutrophils % 50.6 % (38.7-73.9); Platelet Count 332 T/CUMM (130-400); Red Blood Count 3.79 MC/CUMM (3.8-5.5); Red Cell Distribution Width 13.3 % (9.3-17.3); White Blood Count 10.7 T/CUMM (4-12)
[2018-04-14 06:19] LABS: Calcium 8.9 MG/DL (8.5-10.1); Osmolality,Calculated 284.8 MOS/KG (273-304); Potassium 4.2 MMOL/L (3.5-5.1)
[2018-04-14 06:21] LABS: Band Neutrophils 1 % (0-10); Eosinophils 3 % (0-10); Hypochromasia 1+; Lymphocytes 19 % (20-55); Platelet Estimate Adequate; Segmented Neutrophils 60 % (50-85); Total Cells Counted 100
[2018-04-14] MEDS: HYDROmorphone 2 MG/1 ML VIAL IV PRN ×3 (07:37→19:59)
[2018-04-14] MEDS: INSULIN LISPRO 100 UNIT/ML SUBCUT SCH ×4 (10:16→22:53)
[2018-04-14] MEDS: INSULIN GLARGINE 100 UNIT/ML SUBCUT SCH (10:19)
[2018-04-14] MEDS: GABAPENTIN 400 MG CAPSULE PO SCH ×3 (10:20→22:53)
[2018-04-14] MEDS: DOCUSATE SODIUM 100 MG CAPSULE PO SCH ×2 (10:20→22:53)
[2018-04-14] MEDS: PIOGLITAZONE 45 MG TABLET PO SCH (10:21)
[2018-04-14] MEDS: TRIAMTERENE/HCTZ 37.5-25 MG CAPSULE PO SCH (10:21)
[2018-04-14] MEDS: FONDAPARINUX 2.5 MG/0.5 ML SYRINGE SUBCUT SCH (10:22)
[2018-04-14] MEDS: LACTATED RINGERS 1,000 ML IV SCH (13:51)
[2018-04-14] MEDS: LOSARTAN 50 MG TABLET PO SCH (22:52)
[2018-04-15] MEDS: HYDROmorphone 2 MG/1 ML VIAL IV PRN ×3 (00:20→20:41)
[2018-04-15] MEDS: AMPICILLIN INJ 2,000 MG in SODIUM CHLORIDE 0.9% 100 ML IV SCH ×4 (00:22→18:45)
[2018-04-15 05:53] LABS: Basophils # 0.1 10*3/uL (0.0-0.2); Basophils % 0.6 % (0.0-0.8); Eosinophils # 0.6 10*3/uL (0.0-0.87); Eosinophils % 5.3 % (0.00-10.9); Hematocrit 34.5 VOL% (42.0-52.0); Hemoglobin 10.6 GM/DL (14.0-18.0); Immature Granulocytes % 8.8 %; Immature Granulocytes Absolute 1.05 #; Lymphocytes # 3.3 10*3/uL (1.4-4.0); Lymphocytes % 27.5 % (21.2-54.2); Mean Corpuscular HGB Conc 30.7 GM/DL (32-36); Mean Corpuscular Hemoglobin 28 PG (27-34); Mean Corpuscular Volume 91.8 FL (87-102); Mean Platelet Volume 10.4 FL (9.6-12.0); Monocytes # 1.4 10*3/uL (0.11-0.8); Monocytes % 11.8 % (1.7-12.7); Neutrophils # 5.5 10*3/uL (1.4-7.4); Platelet Count 365 T/CUMM (130-400); Red Blood Count 3.76 MC/CUMM (3.8-5.5); Red Cell Distribution Width 13.2 % (9.3-17.3)
[2018-04-15 06:19] LABS: Calcium 8.9 MG/DL (8.5-10.1); Osmolality,Calculated 280.8 MOS/KG (273-304); Potassium 4.1 MMOL/L (3.5-5.1)
[2018-04-15 06:28] LABS: Band Neutrophils 13 % (0-10); Eosinophils 2 % (0-10); Lymphocytes 25 % (20-55); Metamyelocytes 5 %; Myelocytes 2 %; Segmented Neutrophils 39 % (50-85); Total Cells Counted 100
[2018-04-15 06:29] LABS: Platelet Estimate Normal
[2018-04-15] MEDS: FONDAPARINUX 2.5 MG/0.5 ML SYRINGE SUBCUT SCH (07:44)
[2018-04-15] MEDS: INSULIN LISPRO 100 UNIT/ML SUBCUT SCH ×4 (08:01→20:39)
[2018-04-15] MEDS: INSULIN GLARGINE 100 UNIT/ML SUBCUT SCH (08:41)
[2018-04-15] MEDS: DOCUSATE SODIUM 100 MG CAPSULE PO SCH ×2 (08:42→20:39)
[2018-04-15] MEDS: GABAPENTIN 400 MG CAPSULE PO SCH ×3 (08:43→20:39)
[2018-04-15] MEDS: TRIAMTERENE/HCTZ 37.5-25 MG CAPSULE PO SCH (08:43)
[2018-04-15] MEDS: PIOGLITAZONE 45 MG TABLET PO SCH (08:43)
[2018-04-15] MEDS: LACTATED RINGERS 1,000 ML IV SCH (11:42)
[2018-04-15 17:41] LABS: Apearance,Urine CLEAR (Clear); Bilirubin,Urine Negative (Negative); Blood, Urine Negative (Negative); Glucose,Urine (UA) 50 mg/dL (Negative); Ketones,Urine Negative (Negative); Mucus,Urine Occasional /LPF (Occasional); Nitrite,Urine Negative (Negative); Protein,Urine Negative; RBC,Urine <1 /HPF (0-4); Urine Color Yellow (Yellow); Urine Specific Gravity 1.013 (1.001-1.035); WBC,Urine 1 /HPF (0-6)
[2018-04-15] MEDS: LOSARTAN 50 MG TABLET PO SCH (20:39)
[2018-04-16] MEDS: AMPICILLIN INJ 2,000 MG in SODIUM CHLORIDE 0.9% 100 ML IV SCH ×3 (00:54→13:44)
[2018-04-16 04:42] LABS: Basophils # 0.1 10*3/uL (0.0-0.2); Basophils % 0.5 % (0.0-0.8); Eosinophils # 0.5 10*3/uL (0.0-0.87); Eosinophils % 4.8 % (0.00-10.9); Hemoglobin 10.1 GM/DL (14.0-18.0); Immature Granulocytes % 10.5 %; Immature Granulocytes Absolute 1.15 #; Lymphocytes # 3.6 10*3/uL (1.4-4.0); Lymphocytes % 32.4 % (21.2-54.2); Mean Corpuscular HGB Conc 30.6 GM/DL (32-36); Mean Corpuscular Hemoglobin 28 PG (27-34); Mean Corpuscular Volume 91.4 FL (87-102); Mean Platelet Volume 10.3 FL (9.6-12.0); Monocytes # 1.1 10*3/uL (0.11-0.8); Monocytes % 9.7 % (1.7-12.7); Neutrophils # 4.6 10*3/uL (1.4-7.4); Neutrophils % 42.1 % (38.7-73.9); Platelet Count 364 T/CUMM (130-400); Red Blood Count 3.61 MC/CUMM (3.8-5.5); Red Cell Distribution Width 13.2 % (9.3-17.3)
[2018-04-16 05:03] LABS: Potassium 4.2 MMOL/L (3.5-5.1)
[2018-04-16 05:10] LABS: Band Neutrophils 4 % (0-10); Eosinophils 2 % (0-10); Hypochromasia 1+; Lymphocytes 43 % (20-55); Platelet Estimate Adequate; Segmented Neutrophils 47 % (50-85); Total Cells Counted 100
[2018-04-16] MEDS ORDERED: INSULIN GLARGINE 100 UNIT/ML SUBCUT SCH (08:14)
[2018-04-16] MEDS: INSULIN LISPRO 100 UNIT/ML SUBCUT SCH ×2 (08:16→12:11)
[2018-04-16] MEDS: FONDAPARINUX 2.5 MG/0.5 ML SYRINGE SUBCUT SCH (08:17)
[2018-04-16] MEDS: GABAPENTIN 400 MG CAPSULE PO SCH ×2 (08:18→12:16)
[2018-04-16] MEDS: PIOGLITAZONE 45 MG TABLET PO SCH (08:18)
[2018-04-16] MEDS: TRIAMTERENE/HCTZ 37.5-25 MG CAPSULE PO SCH (08:18)
[2018-04-16] MEDS: DOCUSATE SODIUM 100 MG CAPSULE PO SCH (08:19)
[2018-04-16] MEDS: HYDROmorphone 2 MG/1 ML VIAL IV PRN (09:35)
[2018-04-16 12:06] VITALS: BP 103/62
[2018-04-16] MEDS: LACTATED RINGERS 1,000 ML IV SCH (12:12)
== END 2018-04-16 14:00 | DRG 264 ==
LOC: N.2E 14:57 → N.3E 04-10 15:06
PROVIDERS: ADMIT Orthopaedic Surgery; ATTEND Orthopaedic Surgery

== ENCOUNTER 2018-12-31 15:50 | Inpatient (IN) ==
[2018-12-31] MEDS ORDERED: DEXTROSE 10% 250 ML BAG IV PRN (17:02)
[2018-12-31] MEDS ORDERED: GLUCAGON 1 MG VIAL IM PRN (17:02)
[2018-12-31] MEDS ORDERED: ONDANSETRON 4 MG/2 ML VIAL IV PRN (17:02)
[2018-12-31] MEDS ORDERED: MORPHINE 4 MG/1 ML VIAL IV PRN (17:02)
[2018-12-31] MEDS: methylPREDNISolone SOD SUC 40 MG/1 ML VIAL IV SCH (21:00)
[2018-12-31] MEDS: LEVOFLOXACIN INJ 750 MG in PREMIX 1 EACH IV SCH (21:55)
[2018-12-31] MEDS: SODIUM CHLOR 0.9% KCL 20 MEQ 20 MEQ/1,000 ML BAG IV SCH (21:55)
[2018-12-31] MEDS: INSULIN REGULAR 100 UNIT/ML SUBCUT SCH (21:57)
[2018-12-31] MEDS: ENOXAPARIN 40 MG/0.4 ML SYRINGE SUBCUT SCH (21:58)
[2018-12-31] MEDS: GABAPENTIN 400 MG CAPSULE PO SCH (21:59)
[2018-12-31] MEDS: LOSARTAN 50 MG TABLET PO SCH (21:59)
[2018-12-31 23:03] LABS: Apearance,Urine CLOUDY (Clear); Bilirubin,Urine Negative (Negative); Blood, Urine Negative (Negative); Glucose,Urine (UA) >=500 mg/dL (Negative); Hyaline Casts,Urine 13 /LPF (0-3); Ketones,Urine Negative (Negative); Nitrite,Urine Negative (Negative); Protein,Urine 30 MG/DL; RBC,Urine 23 /HPF (0-4); Squamous Epithelial Cell,Urine Occasional /HPF (0-10); Urine Color Amber (Yellow); WBC,Urine 50 /HPF (0-6)
[2019-01-01] MEDS: HYDROmorphone 2 MG/1 ML VIAL IV PRN ×5 (00:13→22:56)
[2019-01-01] MEDS: SILVER SULFADIAZINE 1% CREAM 25 GM TUBE TOP SCH ×3 (00:20→21:58)
[2019-01-01] MEDS ORDERED: INSULIN REGULAR 100 UNIT/ML SUBCUT STA (01:37)
[2019-01-01] MEDS: methylPREDNISolone SOD SUC 40 MG/1 ML VIAL IV SCH ×3 (05:15→21:52)
[2019-01-01 05:28] LABS: Basophils # 0.1 10*3/uL (0.0-0.2); Basophils % 0.7 % (0.0-0.8); Eosinophils % 0.1 % (0.00-10.9); Hematocrit 39.7 VOL% (42.0-52.0); Hemoglobin 12.4 GM/DL (14.0-18.0); Immature Granulocytes % 4.1 %; Immature Granulocytes Absolute 0.73 #; Lymphocytes % 5.8 % (21.2-54.2); Mean Corpuscular HGB Conc 31.2 GM/DL (32-36); Mean Corpuscular Volume 86.7 FL (87-102); Mean Platelet Volume 11.2 FL (9.6-12.0); Monocytes % 6.6 % (1.7-12.7); Neutrophils % 82.7 % (38.7-73.9); Platelet Count 280 T/CUMM (130-400); Red Blood Count 4.58 MC/CUMM (3.8-5.5); Red Cell Distribution Width 15.4 % (9.3-17.3); White Blood Count 17.8 T/CUMM (4-12)
[2019-01-01 05:55] LABS: Band Neutrophils 11 % (0-10); Lymphocytes 6 % (20-55); Segmented Neutrophils 77 % (50-85); Total Cells Counted 100
[2019-01-01 05:58] LABS: Anisocytosis 1+; Platelet Estimate Normal
[2019-01-01 06:03] LABS: Albumin 2.2 G/DL (3.4-5.0); Bilirubin,Total 1.2 MG/DL (0.2-1.0); Calcium 9.4 MG/DL (8.5-10.1); Osmolality,Calculated 288.8 MOS/KG (273-304); Risk Ratio 8.25; Total Protein 7.5 G/DL (6.4-8.3); VLDL CHOLESTEROL 39.8 MG/DL
[2019-01-01] MEDS: TRIAMTERENE/HCTZ 37.5-25 MG CAPSULE PO SCH (08:08)
[2019-01-01] MEDS: GABAPENTIN 400 MG CAPSULE PO SCH ×2 (08:08→21:51)
[2019-01-01] MEDS: PANTOPRAZOLE 40 MG TABLET PO SCH (08:08)
[2019-01-01] MEDS: PIOGLITAZONE 45 MG TABLET PO SCH (08:08)
[2019-01-01] MEDS: INSULIN REGULAR 100 UNIT/ML SUBCUT SCH ×4 (08:12→21:53)
[2019-01-01] MEDS: INSULIN GLARGINE 100 UNIT/ML SUBCUT SCH (08:13)
[2019-01-01] MEDS: SODIUM CHLOR 0.9% KCL 20 MEQ 20 MEQ/1,000 ML BAG IV SCH ×2 (09:53→19:59)
[2019-01-01] MEDS ORDERED: SODIUM HYPOCHLORITE 0.25% IRRIG 473 ML BOTTLE TOP ONE (10:28)
[2019-01-01] MEDS ORDERED: SKIN HEALING OINT (AQUAPHOR) 50 GM TUBE TOP PRN (14:38)
[2019-01-01] MEDS: DESITIN 4OZ/NYSTATIN 15 GRAM MIXTURE PASTE TOP SCH ×2 (16:21→21:58)
[2019-01-01] MEDS: LEVOFLOXACIN INJ 750 MG in PREMIX 1 EACH IV SCH (20:00)
[2019-01-01] MEDS: LOSARTAN 50 MG TABLET PO SCH (21:51)
[2019-01-01] MEDS: ENOXAPARIN 40 MG/0.4 ML SYRINGE SUBCUT SCH (21:59)
[2019-01-02] MEDS: methylPREDNISolone SOD SUC 40 MG/1 ML VIAL IV SCH ×2 (04:27→12:03)
[2019-01-02 04:31] LABS: Hematocrit 37.8 VOL% (42.0-52.0); Hemoglobin 12.3 GM/DL (14.0-18.0); Immature Granulocytes % 5.5 %; Immature Granulocytes Absolute 1.14 #; Lymphocytes # 1.3 10*3/uL (1.4-4.0); Lymphocytes % 6.2 % (21.2-54.2); Mean Corpuscular HGB Conc 32.5 GM/DL (32-36); Mean Corpuscular Volume 85.3 FL (87-102); Mean Platelet Volume 11.1 FL (9.6-12.0); Monocytes % 7.6 % (1.7-12.7); NRBC # 0.03 10*3/uL; Neutrophils % 80.7 % (38.7-73.9); Platelet Count 328 T/CUMM (130-400); Red Blood Count 4.43 MC/CUMM (3.8-5.5); Red Cell Distribution Width 15.5 % (9.3-17.3); White Blood Count 20.6 T/CUMM (4-12)
[2019-01-02 05:03] LABS: Albumin 1.8 G/DL (3.4-5.0); Bilirubin,Total 1.4 MG/DL (0.2-1.0); Osmolality,Calculated 281.1 MOS/KG (273-304); Total Protein 6.7 G/DL (6.4-8.3)
[2019-01-02 05:16] LABS: Band Neutrophils 3 % (0-10); Lymphocytes 9 % (20-55); Metamyelocytes 2 %; Myelocytes 2 %; Segmented Neutrophils 79 % (50-85); Total Cells Counted 100
[2019-01-02 05:17] LABS: Anisocytosis Slight; Hypochromasia Slight; Microcytosis Slight; Platelet Estimate Normal
[2019-01-02] MEDS: HYDROmorphone 2 MG/1 ML VIAL IV PRN ×4 (08:22→22:59)
[2019-01-02] MEDS: INSULIN REGULAR 100 UNIT/ML SUBCUT SCH ×4 (08:25→21:05)
[2019-01-02] MEDS: INSULIN GLARGINE 100 UNIT/ML SUBCUT SCH (08:26)
[2019-01-02] MEDS: SODIUM CHLOR 0.9% KCL 20 MEQ 20 MEQ/1,000 ML BAG IV SCH ×2 (08:29→21:07)
[2019-01-02] MEDS ORDERED: DEXTROSE 10% 25 GM/250 ML BAG IV PRN (09:25)
[2019-01-02] MEDS: PANTOPRAZOLE 40 MG TABLET PO SCH (10:37)
[2019-01-02] MEDS: GABAPENTIN 400 MG CAPSULE PO SCH ×2 (10:37→21:06)
[2019-01-02] MEDS: TRIAMTERENE/HCTZ 37.5-25 MG CAPSULE PO SCH (10:37)
[2019-01-02] MEDS: PIOGLITAZONE 45 MG TABLET PO SCH (10:38)
[2019-01-02] MEDS: DESITIN 4OZ/NYSTATIN 15 GRAM MIXTURE PASTE TOP SCH ×2 (10:38→21:10)
[2019-01-02] MEDS: SILVER SULFADIAZINE 1% CREAM 25 GM TUBE TOP SCH ×3 (10:39→21:16)
[2019-01-02] MEDS: VANCOMYCIN INJ 2,000 MG in SODIUM CHLORIDE 0.9% 500 ML IV SCH (12:10)
[2019-01-02] MEDS: ENOXAPARIN 40 MG/0.4 ML SYRINGE SUBCUT SCH (21:06)
[2019-01-02] MEDS: LOSARTAN 50 MG TABLET PO SCH (21:06)
[2019-01-02] MEDS: LEVOFLOXACIN INJ 750 MG in PREMIX 1 EACH IV SCH (21:06)
[2019-01-03] MEDS: VANCOMYCIN INJ 2,000 MG in SODIUM CHLORIDE 0.9% 500 ML IV SCH ×3 (00:02→23:46)
[2019-01-03 04:32] LABS: Basophils % 0.1 % (0.0-0.8); Eosinophils % 0.1 % (0.00-10.9); Hematocrit 41.2 VOL% (42.0-52.0); Hemoglobin 13.2 GM/DL (14.0-18.0); Immature Granulocytes % 8.7 %; Immature Granulocytes Absolute 2.11 #; Lymphocytes # 2.6 10*3/uL (1.4-4.0); Lymphocytes % 10.6 % (21.2-54.2); Mean Corpuscular Volume 85.1 FL (87-102); Mean Platelet Volume 10.6 FL (9.6-12.0); Monocytes % 8.3 % (1.7-12.7); NRBC # 0.04 10*3/uL; Neutrophils % 72.2 % (38.7-73.9); Platelet Count 381 T/CUMM (130-400); Red Blood Count 4.84 MC/CUMM (3.8-5.5); Red Cell Distribution Width 15.8 % (9.3-17.3); White Blood Count 24.4 T/CUMM (4-12)
[2019-01-03 04:58] LABS: Albumin 1.8 G/DL (3.4-5.0); Bilirubin,Total 0.6 MG/DL (0.2-1.0); Calcium 9.1 MG/DL (8.5-10.1); Osmolality,Calculated 276.1 MOS/KG (273-304)
[2019-01-03] MEDS: HYDROmorphone 2 MG/1 ML VIAL IV PRN ×4 (05:51→20:15)
[2019-01-03 06:14] LABS: Band Neutrophils 2 % (0-10); Eosinophils 2 % (0-10); Lymphocytes 15 % (20-55); Metamyelocytes 3 %; Platelet Estimate Normal; Segmented Neutrophils 69 % (50-85); Total Cells Counted 100
[2019-01-03 06:15] LABS: Anisocytosis 1+; Atypical Lymphocytes 2+; Hypochromasia 1+; Ovalocytes Few; Reactive Lymphocytes 1+
[2019-01-03] MEDS: INSULIN REGULAR 100 UNIT/ML SUBCUT SCH ×4 (08:00→21:30)
[2019-01-03] MEDS: TRIAMTERENE/HCTZ 37.5-25 MG CAPSULE PO SCH (09:42)
[2019-01-03] MEDS: PIOGLITAZONE 45 MG TABLET PO SCH (09:42)
[2019-01-03] MEDS: INSULIN GLARGINE 100 UNIT/ML SUBCUT SCH (09:42)
[2019-01-03] MEDS: GABAPENTIN 400 MG CAPSULE PO SCH ×2 (09:43→20:22)
[2019-01-03] MEDS: PANTOPRAZOLE 40 MG TABLET PO SCH (09:44)
[2019-01-03] MEDS ORDERED: fentaNYL 100 MCG/2 ML VIAL ONE (09:51)
[2019-01-03] MEDS ORDERED: MIDAZOLAM 2 MG/2 ML VIAL ONE (09:51)
[2019-01-03] MEDS ORDERED: PROPOFOL 200 MG/20 ML VIAL IV ONE (09:51)
[2019-01-03] MEDS: DESITIN 4OZ/NYSTATIN 15 GRAM MIXTURE PASTE TOP SCH ×2 (09:52→21:32)
[2019-01-03] MEDS: SILVER SULFADIAZINE 1% CREAM 25 GM TUBE TOP SCH (10:36)
[2019-01-03] MEDS: SODIUM CHLOR 0.9% KCL 20 MEQ 20 MEQ/1,000 ML BAG IV SCH ×3 (11:24→17:25)
[2019-01-03] MEDS: LEVOFLOXACIN INJ 750 MG in PREMIX 1 EACH IV SCH (20:19)
[2019-01-03] MEDS: ENOXAPARIN 40 MG/0.4 ML SYRINGE SUBCUT SCH (20:22)
[2019-01-03] MEDS: LOSARTAN 50 MG TABLET PO SCH (20:22)
[2019-01-04] MEDS: VANCOMYCIN INJ 2,000 MG in SODIUM CHLORIDE 0.9% 500 ML IV SCH ×3 (00:19→23:43)
[2019-01-04] MEDS: HYDROmorphone 2 MG/1 ML VIAL IV PRN ×5 (01:47→23:37)
[2019-01-04] MEDS: INSULIN REGULAR 100 UNIT/ML SUBCUT SCH ×4 (09:34→21:55)
[2019-01-04] MEDS: INSULIN GLARGINE 100 UNIT/ML SUBCUT SCH (09:34)
[2019-01-04] MEDS: PIOGLITAZONE 45 MG TABLET PO SCH (09:36)
[2019-01-04] MEDS: TRIAMTERENE/HCTZ 37.5-25 MG CAPSULE PO SCH (09:36)
[2019-01-04] MEDS: PANTOPRAZOLE 40 MG TABLET PO SCH (09:36)
[2019-01-04] MEDS: GABAPENTIN 400 MG CAPSULE PO SCH ×2 (09:37→21:55)
[2019-01-04] MEDS: DESITIN 4OZ/NYSTATIN 15 GRAM MIXTURE PASTE TOP SCH ×2 (09:39→22:13)
[2019-01-04] MEDS: SODIUM CHLOR 0.9% KCL 20 MEQ 20 MEQ/1,000 ML BAG IV SCH ×2 (15:32→22:13)
[2019-01-04] MEDS: LOSARTAN 50 MG TABLET PO SCH (21:55)
[2019-01-04] MEDS: ENOXAPARIN 40 MG/0.4 ML SYRINGE SUBCUT SCH (21:55)
[2019-01-04] MEDS: LEVOFLOXACIN INJ 750 MG in PREMIX 1 EACH IV SCH (21:56)
[2019-01-05] MEDS: SODIUM CHLOR 0.9% KCL 20 MEQ 20 MEQ/1,000 ML BAG IV SCH ×2 (01:57→02:38)
[2019-01-05 04:46] LABS: Eosinophils # 0.1 10*3/uL (0.0-0.87); Eosinophils % 0.3 % (0.00-10.9); Hemoglobin 11.4 GM/DL (14.0-18.0); Immature Granulocytes Absolute 4.19 #; Lymphocytes % 10.1 % (21.2-54.2); Mean Corpuscular HGB Conc 31.7 GM/DL (32-36); Mean Corpuscular Volume 86.3 FL (87-102); Mean Platelet Volume 10.1 FL (9.6-12.0); Monocytes % 8.2 % (1.7-12.7); NRBC # 0.02 10*3/uL; Neutrophils % 67.4 % (38.7-73.9); Platelet Count 319 T/CUMM (130-400); Red Blood Count 4.17 MC/CUMM (3.8-5.5); Red Cell Distribution Width 15.9 % (9.3-17.3); White Blood Count 29.9 T/CUMM (4-12)
[2019-01-05] MEDS: HYDROmorphone 2 MG/1 ML VIAL IV PRN ×5 (05:14→23:05)
[2019-01-05 05:23] LABS: Albumin 1.4 G/DL (3.4-5.0); Bilirubin,Total 0.9 MG/DL (0.2-1.0); Calcium 8.5 MG/DL (8.5-10.1); Osmolality,Calculated 279.2 MOS/KG (273-304); Total Protein 6.3 G/DL (6.4-8.3)
[2019-01-05 05:27] LABS: Band Neutrophils 5 % (0-10); Hypochromasia 1+; Lymphocytes 11 % (20-55); Microcytosis Slight; Platelet Estimate Adequate; Segmented Neutrophils 77 % (50-85); Total Cells Counted 100
[2019-01-05] MEDS: PANTOPRAZOLE 40 MG TABLET PO SCH (08:10)
[2019-01-05] MEDS: GABAPENTIN 400 MG CAPSULE PO SCH ×2 (08:10→21:31)
[2019-01-05] MEDS: INSULIN GLARGINE 100 UNIT/ML SUBCUT SCH (08:10)
[2019-01-05] MEDS: PIOGLITAZONE 45 MG TABLET PO SCH (08:11)
[2019-01-05] MEDS: TRIAMTERENE/HCTZ 37.5-25 MG CAPSULE PO SCH (08:11)
[2019-01-05] MEDS: INSULIN REGULAR 100 UNIT/ML SUBCUT SCH ×4 (08:11→21:32)
[2019-01-05] MEDS: DESITIN 4OZ/NYSTATIN 15 GRAM MIXTURE PASTE TOP SCH ×2 (08:12→21:33)
[2019-01-05] MEDS: VANCOMYCIN INJ 2,000 MG in SODIUM CHLORIDE 0.9% 500 ML IV SCH (13:13)
[2019-01-05] MEDS: ACETAMINOPHEN 325 MG TABLET PO PRN (21:31)
[2019-01-05] MEDS: LOSARTAN 50 MG TABLET PO SCH (21:31)
[2019-01-05] MEDS: LEVOFLOXACIN INJ 750 MG in PREMIX 1 EACH IV SCH (21:32)
[2019-01-05] MEDS: ENOXAPARIN 40 MG/0.4 ML SYRINGE SUBCUT SCH (21:32)
[2019-01-06] MEDS: VANCOMYCIN INJ 2,000 MG in SODIUM CHLORIDE 0.9% 500 ML IV SCH ×2 (00:33→13:37)
[2019-01-06] MEDS: HYDROmorphone 2 MG/1 ML VIAL IV PRN ×6 (04:17→22:17)
[2019-01-06 06:14] LABS: Basophils % 0.1 % (0.0-0.8); Eosinophils # 0.2 10*3/uL (0.0-0.87); Eosinophils % 0.7 % (0.00-10.9); Hematocrit 38.4 VOL% (42.0-52.0); Hemoglobin 12.2 GM/DL (14.0-18.0); Immature Granulocytes % 14.8 %; Immature Granulocytes Absolute 4.23 #; Lymphocytes # 2.7 10*3/uL (1.4-4.0); Lymphocytes % 9.4 % (21.2-54.2); Mean Corpuscular HGB Conc 31.8 GM/DL (32-36); Mean Corpuscular Volume 86.7 FL (87-102); Mean Platelet Volume 10.8 FL (9.6-12.0); Monocytes % 8.5 % (1.7-12.7); NRBC # 0.02 10*3/uL; Neutrophils % 66.5 % (38.7-73.9); Platelet Count 285 T/CUMM (130-400); Red Blood Count 4.43 MC/CUMM (3.8-5.5); White Blood Count 28.6 T/CUMM (4-12)
[2019-01-06 06:39] LABS: Band Neutrophils 3 % (0-10); Hypochromasia 1+; Lymphocytes 8 % (20-55); Microcytosis Slight; Platelet Estimate Adequate; Segmented Neutrophils 79 % (50-85); Total Cells Counted 100
[2019-01-06 06:44] LABS: Albumin 1.4 G/DL (3.4-5.0); Bilirubin,Total 0.8 MG/DL (0.2-1.0); Calcium 8.9 MG/DL (8.5-10.1); Osmolality,Calculated 275.4 MOS/KG (273-304); Total Protein 6.8 G/DL (6.4-8.3)
[2019-01-06] MEDS: INSULIN REGULAR 100 UNIT/ML SUBCUT SCH ×4 (08:23→22:11)
[2019-01-06] MEDS ORDERED: LIDOCAINE 1% 5 ML VIAL ONE (08:29)
[2019-01-06] MEDS ORDERED: BUPIVACAINE MPF 0.25% 30 ML VIAL ONE (08:30)
[2019-01-06] MEDS ORDERED: ONDANSETRON 4 MG/2 ML VIAL ONE (10:12)
[2019-01-06] MEDS ORDERED: LIDOCAINE 2% 5 ML VIAL ONE (10:12)
[2019-01-06] MEDS ORDERED: SODIUM CHLORIDE 0.9% 250 ML IV ONE (10:12)
[2019-01-06] MEDS ORDERED: PROPOFOL 200 MG/20 ML VIAL IV ONE (10:12)
[2019-01-06] MEDS ORDERED: fentaNYL 100 MCG/2 ML VIAL ONE (10:12)
[2019-01-06] MEDS ORDERED: MIDAZOLAM 2 MG/2 ML VIAL ONE (10:12)
[2019-01-06] MEDS ORDERED: ONDANSETRON 4 MG/2 ML VIAL IV PRN (10:14)
[2019-01-06] MEDS: DESITIN 4OZ/NYSTATIN 15 GRAM MIXTURE PASTE TOP SCH ×2 (10:54→22:21)
[2019-01-06] MEDS: INSULIN GLARGINE 100 UNIT/ML SUBCUT SCH (11:27)
[2019-01-06] MEDS: PIOGLITAZONE 45 MG TABLET PO SCH (11:28)
[2019-01-06] MEDS: GABAPENTIN 400 MG CAPSULE PO SCH ×2 (11:29→22:30)
[2019-01-06] MEDS: TRIAMTERENE/HCTZ 37.5-25 MG CAPSULE PO SCH (11:29)
[2019-01-06] MEDS: PANTOPRAZOLE 40 MG TABLET PO SCH (11:29)
[2019-01-06] MEDS: SODIUM CHLOR 0.9% KCL 20 MEQ 20 MEQ/1,000 ML BAG IV SCH ×2 (17:27→17:28)
[2019-01-06] MEDS: LEVOFLOXACIN INJ 750 MG in PREMIX 1 EACH IV SCH (22:09)
[2019-01-06] MEDS: ACETAMINOPHEN 325 MG TABLET PO PRN (22:10)
[2019-01-06] MEDS: LOSARTAN 50 MG TABLET PO SCH (23:12)
[2019-01-06] MEDS: ENOXAPARIN 40 MG/0.4 ML SYRINGE SUBCUT SCH (23:12)
[2019-01-07] MEDS: VANCOMYCIN INJ 2,000 MG in SODIUM CHLORIDE 0.9% 500 ML IV SCH ×3 (00:35→17:39)
[2019-01-07] MEDS: HYDROmorphone 2 MG/1 ML VIAL IV PRN ×5 (02:17→20:33)
[2019-01-07 04:20] LABS: Eosinophils # 0.2 10*3/uL (0.0-0.87); Eosinophils % 0.8 % (0.00-10.9); Hematocrit 33.4 VOL% (42.0-52.0); Hemoglobin 10.3 GM/DL (14.0-18.0); Immature Granulocytes % 13.4 %; Immature Granulocytes Absolute 3.55 #; Lymphocytes # 2.4 10*3/uL (1.4-4.0); Lymphocytes % 9.1 % (21.2-54.2); Mean Corpuscular HGB Conc 30.8 GM/DL (32-36); Mean Corpuscular Volume 89.5 FL (87-102); Mean Platelet Volume 10.7 FL (9.6-12.0); Monocytes % 8.5 % (1.7-12.7); NRBC # 0.02 10*3/uL; Neutrophils % 68.2 % (38.7-73.9); Platelet Count 288 T/CUMM (130-400); Red Blood Count 3.73 MC/CUMM (3.8-5.5); Red Cell Distribution Width 16.2 % (9.3-17.3); White Blood Count 26.5 T/CUMM (4-12)
[2019-01-07 05:00] LABS: Albumin 1.2 G/DL (3.4-5.0); Bilirubin,Total 0.7 MG/DL (0.2-1.0); Calcium 8.4 MG/DL (8.5-10.1); Osmolality,Calculated 268.8 MOS/KG (273-304); Total Protein 6.4 G/DL (6.4-8.3)
[2019-01-07 05:09] LABS: Anisocytosis 1+; Band Neutrophils 2 % (0-10); Lymphocytes 11 % (20-55); Metamyelocytes 1 %; Myelocytes 3 %; Segmented Neutrophils 79 % (50-85); Total Cells Counted 100; Toxic Granulation 1+
[2019-01-07 05:10] LABS: Platelet Estimate Adequate; Polychromasia Few
[2019-01-07] MEDS: SODIUM CHLOR 0.9% KCL 20 MEQ 20 MEQ/1,000 ML BAG IV SCH ×2 (05:25→19:32)
[2019-01-07] MEDS: INSULIN GLARGINE 100 UNIT/ML SUBCUT SCH (08:48)
[2019-01-07] MEDS: INSULIN REGULAR 100 UNIT/ML SUBCUT SCH ×4 (08:49→20:45)
[2019-01-07] MEDS: TRIAMTERENE/HCTZ 37.5-25 MG CAPSULE PO SCH (08:51)
[2019-01-07] MEDS: GABAPENTIN 400 MG CAPSULE PO SCH ×2 (08:51→20:36)
[2019-01-07] MEDS: PIOGLITAZONE 45 MG TABLET PO SCH (08:51)
[2019-01-07] MEDS: PANTOPRAZOLE 40 MG TABLET PO SCH (08:51)
[2019-01-07] MEDS: DESITIN 4OZ/NYSTATIN 15 GRAM MIXTURE PASTE TOP SCH ×2 (08:52→22:56)
[2019-01-07] MEDS: LEVOFLOXACIN INJ 750 MG in PREMIX 1 EACH IV SCH (20:35)
[2019-01-07] MEDS: LOSARTAN 50 MG TABLET PO SCH (20:36)
[2019-01-07] MEDS: ENOXAPARIN 40 MG/0.4 ML SYRINGE SUBCUT SCH (20:37)
[2019-01-08] MEDS: SODIUM CHLOR 0.9% KCL 20 MEQ 20 MEQ/1,000 ML BAG IV SCH ×3 (00:49→14:59)
[2019-01-08] MEDS: HYDROmorphone 2 MG/1 ML VIAL IV PRN ×5 (00:49→16:58)
[2019-01-08 06:16] LABS: Basophils # 0.2 10*3/uL (0.0-0.2); Basophils % 0.8 % (0.0-0.8); Eosinophils # 0.2 10*3/uL (0.0-0.87); Eosinophils % 0.8 % (0.00-10.9); Hematocrit 32.5 VOL% (42.0-52.0); Hemoglobin 10.3 GM/DL (14.0-18.0); Immature Granulocytes % 8.9 %; Immature Granulocytes Absolute 2.04 #; Lymphocytes % 8.6 % (21.2-54.2); Mean Corpuscular HGB Conc 31.7 GM/DL (32-36); Mean Corpuscular Volume 86.9 FL (87-102); Mean Platelet Volume 10.2 FL (9.6-12.0); Monocytes % 8.7 % (1.7-12.7); Neutrophils % 72.2 % (38.7-73.9); Platelet Count 351 T/CUMM (130-400); Red Blood Count 3.74 MC/CUMM (3.8-5.5); Red Cell Distribution Width 15.9 % (9.3-17.3)
[2019-01-08 06:47] LABS: Albumin 1.3 G/DL (3.4-5.0); Bilirubin,Total 1.4 MG/DL (0.2-1.0); Calcium 8.4 MG/DL (8.5-10.1); Osmolality,Calculated 273.5 MOS/KG (273-304); Total Protein 6.5 G/DL (6.4-8.3)
[2019-01-08 07:09] LABS: Lymphocytes 5 % (20-55); Platelet Estimate Normal; Polychromasia Few; Segmented Neutrophils 86 % (50-85); Total Cells Counted 100
[2019-01-08 07:10] LABS: Hypochromasia Slight
[2019-01-08] MEDS: PANTOPRAZOLE 40 MG TABLET PO SCH (09:05)
[2019-01-08] MEDS: GABAPENTIN 400 MG CAPSULE PO SCH ×2 (09:05→21:39)
[2019-01-08] MEDS: PIOGLITAZONE 45 MG TABLET PO SCH (09:06)
[2019-01-08] MEDS: TRIAMTERENE/HCTZ 37.5-25 MG CAPSULE PO SCH (09:06)
[2019-01-08] MEDS: DESITIN 4OZ/NYSTATIN 15 GRAM MIXTURE PASTE TOP SCH ×2 (09:06→21:48)
[2019-01-08] MEDS: INSULIN REGULAR 100 UNIT/ML SUBCUT SCH ×4 (10:17→21:39)
[2019-01-08] MEDS: INSULIN GLARGINE 100 UNIT/ML SUBCUT SCH (10:18)
[2019-01-08] MEDS ORDERED: SODIUM HYPOCHLORITE 0.25% IRR 1 APPLIC in IV BAG 1 EACH IRRIG PRN (11:02)
[2019-01-08] MEDS: VANCOMYCIN INJ 2,000 MG in SODIUM CHLORIDE 0.9% 500 ML IV SCH (12:32)
[2019-01-08] MEDS: fentaNYL 25 MCG/HR PATCH TRANSDERM SCH (19:17)
[2019-01-08] MEDS: ENOXAPARIN 40 MG/0.4 ML SYRINGE SUBCUT SCH (21:39)
[2019-01-08] MEDS: LOSARTAN 50 MG TABLET PO SCH (21:44)
[2019-01-09] MEDS: SODIUM CHLOR 0.9% KCL 20 MEQ 20 MEQ/1,000 ML BAG IV SCH ×3 (01:01→20:41)
[2019-01-09] MEDS: HYDROmorphone 2 MG/1 ML VIAL IV PRN ×3 (02:40→17:33)
[2019-01-09 03:35] LABS: Basophils # 0.1 10*3/uL (0.0-0.2); Basophils % 0.7 % (0.0-0.8); Eosinophils # 0.2 10*3/uL (0.0-0.87); Eosinophils % 1.4 % (0.00-10.9); Hematocrit 32.6 VOL% (42.0-52.0); Hemoglobin 10.4 GM/DL (14.0-18.0); Immature Granulocytes % 8.8 %; Immature Granulocytes Absolute 1.49 #; Lymphocytes % 12.1 % (21.2-54.2); Mean Corpuscular HGB Conc 31.9 GM/DL (32-36); Mean Platelet Volume 9.4 FL (9.6-12.0); Monocytes % 9.3 % (1.7-12.7); Neutrophils % 67.7 % (38.7-73.9); Platelet Count 374 T/CUMM (130-400); Red Blood Count 3.79 MC/CUMM (3.8-5.5); Red Cell Distribution Width 15.7 % (9.3-17.3); White Blood Count 16.8 T/CUMM (4-12)
[2019-01-09 03:53] LABS: Calcium 8.6 MG/DL (8.5-10.1); Osmolality,Calculated 277.1 MOS/KG (273-304)
[2019-01-09 04:05] LABS: Band Neutrophils 5 % (0-10); Eosinophils 4 % (0-10); Lymphocytes 16 % (20-55); Platelet Estimate Normal; Segmented Neutrophils 65 % (50-85); Total Cells Counted 100
[2019-01-09 04:07] LABS: Hypochromasia Slight
[2019-01-09] MEDS: VANCOMYCIN INJ 2,000 MG in SODIUM CHLORIDE 0.9% 500 ML IV SCH (05:57)
[2019-01-09] MEDS: PANTOPRAZOLE 40 MG TABLET PO SCH (08:29)
[2019-01-09] MEDS: PIOGLITAZONE 45 MG TABLET PO SCH (08:29)
[2019-01-09] MEDS: INSULIN REGULAR 100 UNIT/ML SUBCUT SCH ×4 (08:29→20:40)
[2019-01-09] MEDS: GABAPENTIN 400 MG CAPSULE PO SCH ×2 (08:29→20:01)
[2019-01-09] MEDS: TRIAMTERENE/HCTZ 37.5-25 MG CAPSULE PO SCH (08:29)
[2019-01-09] MEDS: DESITIN 4OZ/NYSTATIN 15 GRAM MIXTURE PASTE TOP SCH ×2 (08:30→20:50)
[2019-01-09] MEDS: INSULIN GLARGINE 100 UNIT/ML SUBCUT SCH (08:30)
[2019-01-09] MEDS: ENOXAPARIN 40 MG/0.4 ML SYRINGE SUBCUT SCH (20:01)
[2019-01-09] MEDS: LOSARTAN 50 MG TABLET PO SCH (20:49)
[2019-01-10] MEDS: VANCOMYCIN INJ 2,000 MG in SODIUM CHLORIDE 0.9% 500 ML IV SCH ×2 (00:13→18:07)
[2019-01-10] MEDS: HYDROmorphone 2 MG/1 ML VIAL IV PRN ×3 (01:37→17:46)
[2019-01-10 05:07] LABS: Calcium 8.6 MG/DL (8.5-10.1); Osmolality,Calculated 278.1 MOS/KG (273-304)
[2019-01-10] MEDS: SODIUM CHLOR 0.9% KCL 20 MEQ 20 MEQ/1,000 ML BAG IV SCH ×2 (05:10→18:38)
[2019-01-10] MEDS: INSULIN GLARGINE 100 UNIT/ML SUBCUT SCH (09:01)
[2019-01-10] MEDS: INSULIN REGULAR 100 UNIT/ML SUBCUT SCH ×4 (09:01→21:25)
[2019-01-10] MEDS: MAGNESIUM HYDROXIDE SUSP 30 ML UDCUP PO PRN (09:02)
[2019-01-10] MEDS: TRIAMTERENE/HCTZ 37.5-25 MG CAPSULE PO SCH (09:02)
[2019-01-10] MEDS: PIOGLITAZONE 45 MG TABLET PO SCH (09:02)
[2019-01-10] MEDS: GABAPENTIN 400 MG CAPSULE PO SCH ×2 (09:03→21:25)
[2019-01-10] MEDS: PANTOPRAZOLE 40 MG TABLET PO SCH (09:03)
[2019-01-10] MEDS: DESITIN 4OZ/NYSTATIN 15 GRAM MIXTURE PASTE TOP SCH ×2 (09:03→21:30)
[2019-01-10] MEDS ORDERED: FUROSEMIDE 40 MG/4 ML VIAL IV ONE (12:11)
[2019-01-10] MEDS ORDERED: methylPREDNISolone SOD SUC 40 MG/1 ML VIAL IV SCH (12:30)
[2019-01-10] MEDS: LIDOCAINE 5% PATCH TRANSDERM SCH (12:39)
[2019-01-10] MEDS ORDERED: GLIMEPIRIDE 2 MG TABLET PO ONE (16:36)
[2019-01-10] MEDS: FUROSEMIDE 40 MG/4 ML VIAL IV SCH (17:04)
[2019-01-10] MEDS: KETOROLAC 15 MG/1 ML VIAL IV SCH (17:05)
[2019-01-10] MEDS: ENOXAPARIN 40 MG/0.4 ML SYRINGE SUBCUT SCH (21:25)
[2019-01-10] MEDS: methylPREDNISolone SOD SUC 40 MG/1 ML VIAL IV SCH (21:26)
[2019-01-10] MEDS: LOSARTAN 50 MG TABLET PO SCH (22:19)
[2019-01-11] MEDS: KETOROLAC 15 MG/1 ML VIAL IV SCH ×3 (01:27→17:24)
[2019-01-11] MEDS: HYDROmorphone 2 MG/1 ML VIAL IV PRN ×6 (03:13→22:13)
[2019-01-11 06:47] LABS: Basophils # 0.1 10*3/uL (0.0-0.2); Basophils % 0.3 % (0.0-0.8); Hematocrit 33.5 VOL% (42.0-52.0); Hemoglobin 10.7 GM/DL (14.0-18.0); Immature Granulocytes % 1.3 %; Immature Granulocytes Absolute 0.25 #; Lymphocytes % 5.2 % (21.2-54.2); Mean Corpuscular HGB Conc 31.9 GM/DL (32-36); Mean Corpuscular Volume 86.3 FL (87-102); Mean Platelet Volume 10.2 FL (9.6-12.0); Monocytes % 3.7 % (1.7-12.7); Neutrophils % 89.5 % (38.7-73.9); Platelet Count 477 T/CUMM (130-400); Red Blood Count 3.88 MC/CUMM (3.8-5.5); Red Cell Distribution Width 15.3 % (9.3-17.3); White Blood Count 19.3 T/CUMM (4-12)
[2019-01-11 07:07] LABS: Albumin 1.4 G/DL (3.4-5.0); Bilirubin,Total 1.1 MG/DL (0.2-1.0); Osmolality,Calculated 282.5 MOS/KG (273-304); Total Protein 7.8 G/DL (6.4-8.3)
[2019-01-11] MEDS: fentaNYL 25 MCG/HR PATCH TRANSDERM SCH (08:27)
[2019-01-11] MEDS: LIDOCAINE 5% PATCH TRANSDERM SCH (08:29)
[2019-01-11] MEDS: INSULIN GLARGINE 100 UNIT/ML SUBCUT SCH (08:33)
[2019-01-11] MEDS: INSULIN REGULAR 100 UNIT/ML SUBCUT SCH ×4 (08:33→22:12)
[2019-01-11] MEDS: FUROSEMIDE 40 MG/4 ML VIAL IV SCH ×2 (08:34→17:21)
[2019-01-11] MEDS: methylPREDNISolone SOD SUC 40 MG/1 ML VIAL IV SCH ×2 (08:43→21:14)
[2019-01-11] MEDS: PIOGLITAZONE 45 MG TABLET PO SCH (09:02)
[2019-01-11] MEDS: GLIMEPIRIDE 2 MG TABLET PO SCH (09:02)
[2019-01-11] MEDS: DESITIN 4OZ/NYSTATIN 15 GRAM MIXTURE PASTE TOP SCH ×2 (09:03→22:23)
[2019-01-11] MEDS: PANTOPRAZOLE 40 MG TABLET PO SCH (09:03)
[2019-01-11] MEDS: GABAPENTIN 400 MG CAPSULE PO SCH ×2 (09:03→21:10)
[2019-01-11] MEDS ORDERED: MIDAZOLAM 2 MG/2 ML VIAL ONE (10:20)
[2019-01-11] MEDS ORDERED: fentaNYL 100 MCG/2 ML VIAL ONE (10:20)
[2019-01-11] MEDS ORDERED: LACTATED RINGERS 1,000 ML IV SCH (11:00)
[2019-01-11] MEDS ORDERED: SUGAMMADEX 200 MG/2 ML VIAL IV ONE (11:27)
[2019-01-11] MEDS ORDERED: PHENYLEPHRINE 1 MG/10 ML SYRINGE IV ONE (11:44)
[2019-01-11] MEDS ORDERED: ROCURONIUM 100 MG/10 ML VIAL IV ONE (11:44)
[2019-01-11] MEDS ORDERED: LIDOCAINE 2% 5 ML VIAL ONE (11:44)
[2019-01-11] MEDS ORDERED: ONDANSETRON 4 MG/2 ML VIAL ONE (11:44)
[2019-01-11] MEDS ORDERED: ETOMIDATE 40 MG/20 ML VIAL IV ONE (11:44)
[2019-01-11] MEDS ORDERED: DESFLURANE 1 UNIT/15 MINUTE INH ONE (11:44)
[2019-01-11] MEDS ORDERED: ONDANSETRON 4 MG/2 ML VIAL IV PRN (12:04)
[2019-01-11] MEDS: VANCOMYCIN INJ 2,000 MG in SODIUM CHLORIDE 0.9% 500 ML IV SCH (14:54)
[2019-01-11] MEDS: SODIUM CHLOR 0.9% KCL 20 MEQ 20 MEQ/1,000 ML BAG IV SCH (16:47)
[2019-01-11] MEDS: LOSARTAN 50 MG TABLET PO SCH (21:10)
[2019-01-11] MEDS: traZODone 50 MG TABLET PO SCH (21:10)
[2019-01-11] MEDS: ENOXAPARIN 40 MG/0.4 ML SYRINGE SUBCUT SCH (21:12)
[2019-01-12] MEDS: KETOROLAC 15 MG/1 ML VIAL IV SCH ×3 (00:56→18:30)
[2019-01-12] MEDS: HYDROmorphone 2 MG/1 ML VIAL IV PRN ×5 (03:15→23:56)
[2019-01-12 05:43] LABS: Basophils % 0.2 % (0.0-0.8); Eosinophils % 0.3 % (0.00-10.9); Hematocrit 29.1 VOL% (42.0-52.0); Hemoglobin 9.4 GM/DL (14.0-18.0); Immature Granulocytes % 1.3 %; Immature Granulocytes Absolute 0.16 #; Lymphocytes # 1.1 10*3/uL (1.4-4.0); Lymphocytes % 8.9 % (21.2-54.2); Mean Corpuscular HGB Conc 32.3 GM/DL (32-36); Mean Corpuscular Volume 87.7 FL (87-102); Mean Platelet Volume 9.5 FL (9.6-12.0); Monocytes % 8.7 % (1.7-12.7); Neutrophils % 80.6 % (38.7-73.9); Platelet Count 411 T/CUMM (130-400); Red Blood Count 3.32 MC/CUMM (3.8-5.5); Red Cell Distribution Width 15.2 % (9.3-17.3); White Blood Count 12.1 T/CUMM (4-12)
[2019-01-12 06:12] LABS: Alanine Aminotransferase 13 U/L (16-61); Albumin 1.4 G/DL (3.4-5.0); Alkaline Phosphatase 245 U/L (45-117); Aspartate Amino Transferase 14 U/L (0-37); Bilirubin,Total < 0.39 MG/DL (0.2-1.0); Blood Urea Nitrogen 23 MG/DL (7-18); Calcium 8.5 MG/DL (8.5-10.1); Estimated Glom Filtration Rate 119 ML/MIN; Glucose 285 MG/DL (74-106); Osmolality,Calculated 277.5 MOS/KG (273-304); Total Protein 6.9 G/DL (6.4-8.3)
[2019-01-12] MEDS: PANTOPRAZOLE 40 MG TABLET PO SCH (08:28)
[2019-01-12] MEDS: GLIMEPIRIDE 2 MG TABLET PO SCH (08:28)
[2019-01-12] MEDS: GABAPENTIN 400 MG CAPSULE PO SCH ×3 (08:28→21:45)
[2019-01-12] MEDS: PIOGLITAZONE 45 MG TABLET PO SCH (08:29)
[2019-01-12] MEDS: FUROSEMIDE 40 MG/4 ML VIAL IV SCH ×2 (08:32→16:11)
[2019-01-12] MEDS: methylPREDNISolone SOD SUC 40 MG/1 ML VIAL IV SCH ×2 (08:35→21:46)
[2019-01-12] MEDS: INSULIN REGULAR 100 UNIT/ML SUBCUT SCH ×4 (08:38→21:46)
[2019-01-12] MEDS: LIDOCAINE 5% PATCH TRANSDERM SCH (08:39)
[2019-01-12] MEDS: DESITIN 4OZ/NYSTATIN 15 GRAM MIXTURE PASTE TOP SCH ×2 (08:39→21:46)
[2019-01-12] MEDS: INSULIN GLARGINE 100 UNIT/ML SUBCUT SCH (10:01)
[2019-01-12] MEDS: VANCOMYCIN INJ 2,000 MG in SODIUM CHLORIDE 0.9% 500 ML IV SCH (10:39)
[2019-01-12] MEDS: traZODone 50 MG TABLET PO SCH (21:45)
[2019-01-12] MEDS: ENOXAPARIN 40 MG/0.4 ML SYRINGE SUBCUT SCH (21:46)
[2019-01-12] MEDS: LOSARTAN 50 MG TABLET PO SCH (21:47)
[2019-01-13] MEDS: KETOROLAC 15 MG/1 ML VIAL IV SCH ×3 (01:06→17:30)
[2019-01-13] MEDS: VANCOMYCIN INJ 2,000 MG in SODIUM CHLORIDE 0.9% 500 ML IV SCH ×2 (04:19→21:35)
[2019-01-13 07:00] LABS: Basophils % 0.1 % (0.0-0.8); Eosinophils % 0.1 % (0.00-10.9); Immature Granulocytes Absolute 0.09 #; Lymphocytes # 0.9 10*3/uL (1.4-4.0); Lymphocytes % 9.7 % (21.2-54.2); Mean Corpuscular HGB Conc 31.3 GM/DL (32-36); Mean Corpuscular Volume 87.4 FL (87-102); Mean Platelet Volume 10.1 FL (9.6-12.0); Monocytes % 5.3 % (1.7-12.7); Neutrophils % 83.8 % (38.7-73.9); Platelet Count 510 T/CUMM (130-400); Red Blood Count 3.66 MC/CUMM (3.8-5.5); White Blood Count 9.4 T/CUMM (4-12)
[2019-01-13 07:28] LABS: Calcium 8.6 MG/DL (8.5-10.1); Osmolality,Calculated 280.4 MOS/KG (273-304)
[2019-01-13] MEDS: INSULIN REGULAR 100 UNIT/ML SUBCUT SCH ×4 (08:55→21:26)
[2019-01-13] MEDS: INSULIN GLARGINE 100 UNIT/ML SUBCUT SCH (08:55)
[2019-01-13] MEDS: methylPREDNISolone SOD SUC 40 MG/1 ML VIAL IV SCH ×2 (08:56→21:27)
[2019-01-13] MEDS: FUROSEMIDE 40 MG/4 ML VIAL IV SCH ×2 (08:56→17:04)
[2019-01-13] MEDS: GABAPENTIN 400 MG CAPSULE PO SCH ×3 (08:56→21:26)
[2019-01-13] MEDS: PIOGLITAZONE 45 MG TABLET PO SCH (08:57)
[2019-01-13] MEDS: GLIMEPIRIDE 2 MG TABLET PO SCH (08:57)
[2019-01-13] MEDS: PANTOPRAZOLE 40 MG TABLET PO SCH (08:57)
[2019-01-13] MEDS: HYDROmorphone 2 MG/1 ML VIAL IV PRN ×3 (08:58→21:23)
[2019-01-13] MEDS: DESITIN 4OZ/NYSTATIN 15 GRAM MIXTURE PASTE TOP SCH ×2 (08:58→21:27)
[2019-01-13] MEDS: LIDOCAINE 5% PATCH TRANSDERM SCH (10:37)
[2019-01-13] MEDS ORDERED: CLINDAMYCIN INJ 900 MG in PREMIX 1 EACH IV ONE (17:13)
[2019-01-13] MEDS: LOSARTAN 50 MG TABLET PO SCH (21:25)
[2019-01-13] MEDS: traZODone 50 MG TABLET PO SCH (21:25)
[2019-01-13] MEDS: ENOXAPARIN 40 MG/0.4 ML SYRINGE SUBCUT SCH (21:27)
[2019-01-14] MEDS: KETOROLAC 15 MG/1 ML VIAL IV SCH ×3 (00:55→18:11)
[2019-01-14] MEDS: HYDROmorphone 2 MG/1 ML VIAL IV PRN ×3 (04:12→21:18)
[2019-01-14 06:29] LABS: Basophils % 0.2 % (0.0-0.8); Eosinophils # 0.1 10*3/uL (0.0-0.87); Eosinophils % 0.4 % (0.00-10.9); Hematocrit 30.4 VOL% (42.0-52.0); Hemoglobin 9.6 GM/DL (14.0-18.0); Immature Granulocytes Absolute 0.13 #; Lymphocytes # 1.7 10*3/uL (1.4-4.0); Lymphocytes % 13.8 % (21.2-54.2); Mean Corpuscular HGB Conc 31.6 GM/DL (32-36); Mean Corpuscular Volume 87.4 FL (87-102); Mean Platelet Volume 9.6 FL (9.6-12.0); Monocytes % 8.4 % (1.7-12.7); Neutrophils % 76.2 % (38.7-73.9); Platelet Count 502 T/CUMM (130-400); Red Blood Count 3.48 MC/CUMM (3.8-5.5); White Blood Count 12.5 T/CUMM (4-12)
[2019-01-14 06:46] LABS: Calcium 8.4 MG/DL (8.5-10.1); Osmolality,Calculated 280.2 MOS/KG (273-304)
[2019-01-14] MEDS: INSULIN GLARGINE 100 UNIT/ML SUBCUT SCH (08:03)
[2019-01-14] MEDS: FUROSEMIDE 40 MG/4 ML VIAL IV SCH ×2 (08:04→17:13)
[2019-01-14] MEDS: INSULIN REGULAR 100 UNIT/ML SUBCUT SCH ×4 (08:04→21:16)
[2019-01-14] MEDS: GLIMEPIRIDE 2 MG TABLET PO SCH (08:05)
[2019-01-14] MEDS: PIOGLITAZONE 45 MG TABLET PO SCH (08:05)
[2019-01-14] MEDS: methylPREDNISolone SOD SUC 40 MG/1 ML VIAL IV SCH ×2 (08:05→21:17)
[2019-01-14] MEDS: LIDOCAINE 5% PATCH TRANSDERM SCH (08:06)
[2019-01-14] MEDS: GABAPENTIN 400 MG CAPSULE PO SCH ×3 (08:06→21:15)
[2019-01-14] MEDS: PANTOPRAZOLE 40 MG TABLET PO SCH (08:06)
[2019-01-14] MEDS: fentaNYL 25 MCG/HR PATCH TRANSDERM SCH (08:07)
[2019-01-14] MEDS: DESITIN 4OZ/NYSTATIN 15 GRAM MIXTURE PASTE TOP SCH ×2 (08:08→21:19)
[2019-01-14] MEDS ORDERED: HYDROmorphone 2 MG/1 ML VIAL IV ONE (15:35)
[2019-01-14] MEDS: VANCOMYCIN INJ 2,000 MG in SODIUM CHLORIDE 0.9% 500 ML IV SCH (15:50)
[2019-01-14] MEDS: LOSARTAN 50 MG TABLET PO SCH (21:15)
[2019-01-14] MEDS: traZODone 50 MG TABLET PO SCH (21:15)
[2019-01-14] MEDS: ENOXAPARIN 40 MG/0.4 ML SYRINGE SUBCUT SCH (21:18)
[2019-01-15] MEDS: KETOROLAC 15 MG/1 ML VIAL IV SCH ×3 (01:04→19:22)
[2019-01-15] MEDS: HYDROmorphone 2 MG/1 ML VIAL IV PRN ×4 (03:32→22:43)
[2019-01-15 06:12] LABS: Basophils % 0.3 % (0.0-0.8); Eosinophils % 0.4 % (0.00-10.9); Hematocrit 30.8 VOL% (42.0-52.0); Hemoglobin 9.7 GM/DL (14.0-18.0); Immature Granulocytes % 1.9 %; Immature Granulocytes Absolute 0.18 #; Lymphocytes # 1.6 10*3/uL (1.4-4.0); Lymphocytes % 16.8 % (21.2-54.2); Mean Corpuscular HGB Conc 31.5 GM/DL (32-36); Mean Platelet Volume 9.7 FL (9.6-12.0); Monocytes % 9.8 % (1.7-12.7); Neutrophils % 70.8 % (38.7-73.9); Platelet Count 480 T/CUMM (130-400); Red Blood Count 3.54 MC/CUMM (3.8-5.5); Red Cell Distribution Width 14.8 % (9.3-17.3); White Blood Count 9.6 T/CUMM (4-12)
[2019-01-15] MEDS ORDERED: CLINDAMYCIN INJ 900 MG in PREMIX 1 EACH IV ONE (06:30)
[2019-01-15] MEDS: SODIUM HYPOCHLORITE 0.25% IRR 1 APPLIC in IV BAG 1 EACH IRRIG PRN (08:56)
[2019-01-15] MEDS: FUROSEMIDE 40 MG/4 ML VIAL IV SCH ×2 (09:36→16:39)
[2019-01-15] MEDS: methylPREDNISolone SOD SUC 40 MG/1 ML VIAL IV SCH ×2 (09:38→20:40)
[2019-01-15] MEDS: INSULIN GLARGINE 100 UNIT/ML SUBCUT SCH (09:39)
[2019-01-15] MEDS: INSULIN REGULAR 100 UNIT/ML SUBCUT SCH ×4 (09:40→22:13)
[2019-01-15] MEDS: PIOGLITAZONE 45 MG TABLET PO SCH (09:42)
[2019-01-15] MEDS: GLIMEPIRIDE 2 MG TABLET PO SCH (09:42)
[2019-01-15] MEDS: GABAPENTIN 400 MG CAPSULE PO SCH ×3 (09:42→20:39)
[2019-01-15] MEDS: PANTOPRAZOLE 40 MG TABLET PO SCH (09:42)
[2019-01-15] MEDS: LIDOCAINE 5% PATCH TRANSDERM SCH (09:44)
[2019-01-15] MEDS: DESITIN 4OZ/NYSTATIN 15 GRAM MIXTURE PASTE TOP SCH ×2 (10:45→20:40)
[2019-01-15] MEDS: VANCOMYCIN INJ 2,000 MG in SODIUM CHLORIDE 0.9% 500 ML IV SCH (11:13)
[2019-01-15] MEDS: LOSARTAN 50 MG TABLET PO SCH (20:39)
[2019-01-15] MEDS: traZODone 50 MG TABLET PO SCH (20:39)
[2019-01-15] MEDS: ENOXAPARIN 40 MG/0.4 ML SYRINGE SUBCUT SCH (20:40)
[2019-01-16] MEDS: KETOROLAC 15 MG/1 ML VIAL IV SCH ×3 (01:58→16:22)
[2019-01-16] MEDS: VANCOMYCIN INJ 2,000 MG in SODIUM CHLORIDE 0.9% 500 ML IV SCH ×2 (02:00→21:38)
[2019-01-16] MEDS: HYDROmorphone 2 MG/1 ML VIAL IV PRN ×3 (05:47→21:30)
[2019-01-16 05:52] LABS: Basophils % 0.3 % (0.0-0.8); Eosinophils % 0.2 % (0.00-10.9); Hematocrit 32.6 VOL% (42.0-52.0); Hemoglobin 10.2 GM/DL (14.0-18.0); Immature Granulocytes Absolute 0.11 #; Lymphocytes # 1.5 10*3/uL (1.4-4.0); Lymphocytes % 13.7 % (21.2-54.2); Mean Corpuscular HGB Conc 31.3 GM/DL (32-36); Mean Corpuscular Volume 86.7 FL (87-102); Mean Platelet Volume 9.8 FL (9.6-12.0); Monocytes % 8.3 % (1.7-12.7); Neutrophils % 76.5 % (38.7-73.9); Platelet Count 478 T/CUMM (130-400); Red Blood Count 3.76 MC/CUMM (3.8-5.5); Red Cell Distribution Width 14.8 % (9.3-17.3); White Blood Count 10.6 T/CUMM (4-12)
[2019-01-16 06:04] LABS: Calcium 8.7 MG/DL (8.5-10.1); Osmolality,Calculated 284.4 MOS/KG (273-304)
[2019-01-16] MEDS: PANTOPRAZOLE 40 MG TABLET PO SCH (09:21)
[2019-01-16] MEDS: GABAPENTIN 400 MG CAPSULE PO SCH ×3 (09:21→21:31)
[2019-01-16] MEDS: GLIMEPIRIDE 2 MG TABLET PO SCH (09:21)
[2019-01-16] MEDS: FUROSEMIDE 40 MG/4 ML VIAL IV SCH ×2 (09:23→16:20)
[2019-01-16] MEDS: methylPREDNISolone SOD SUC 40 MG/1 ML VIAL IV SCH ×2 (09:27→21:30)
[2019-01-16] MEDS: LIDOCAINE 5% PATCH TRANSDERM SCH (09:30)
[2019-01-16] MEDS: PIOGLITAZONE 45 MG TABLET PO SCH (09:42)
[2019-01-16] MEDS: INSULIN REGULAR 100 UNIT/ML SUBCUT SCH ×4 (09:42→21:37)
[2019-01-16] MEDS: INSULIN GLARGINE 100 UNIT/ML SUBCUT SCH (09:43)
[2019-01-16] MEDS: DESITIN 4OZ/NYSTATIN 15 GRAM MIXTURE PASTE TOP SCH ×2 (09:43→21:38)
[2019-01-16] MEDS: ENOXAPARIN 40 MG/0.4 ML SYRINGE SUBCUT SCH (21:30)
[2019-01-16] MEDS: LOSARTAN 50 MG TABLET PO SCH (21:31)
[2019-01-16] MEDS: traZODone 50 MG TABLET PO SCH (21:31)
[2019-01-17] MEDS: KETOROLAC 15 MG/1 ML VIAL IV SCH ×3 (01:12→17:01)
[2019-01-17 05:08] LABS: Basophils % 0.3 % (0.0-0.8); Eosinophils # 0.1 10*3/uL (0.0-0.87); Eosinophils % 0.9 % (0.00-10.9); Hematocrit 32.2 VOL% (42.0-52.0); Hemoglobin 10.1 GM/DL (14.0-18.0); Immature Granulocytes % 1.2 %; Immature Granulocytes Absolute 0.13 #; Lymphocytes # 2.1 10*3/uL (1.4-4.0); Lymphocytes % 18.8 % (21.2-54.2); Mean Corpuscular HGB Conc 31.4 GM/DL (32-36); Mean Corpuscular Volume 87.7 FL (87-102); Mean Platelet Volume 9.6 FL (9.6-12.0); Monocytes % 9.2 % (1.7-12.7); Neutrophils % 69.6 % (38.7-73.9); Platelet Count 449 T/CUMM (130-400); Red Blood Count 3.67 MC/CUMM (3.8-5.5); White Blood Count 11.3 T/CUMM (4-12)
[2019-01-17 05:35] LABS: Calcium 8.6 MG/DL (8.5-10.1)
[2019-01-17] MEDS: HYDROmorphone 2 MG/1 ML VIAL IV PRN ×3 (06:15→20:22)
[2019-01-17] MEDS: FUROSEMIDE 40 MG/4 ML VIAL IV SCH ×2 (09:05→16:07)
[2019-01-17] MEDS: GABAPENTIN 400 MG CAPSULE PO SCH ×3 (09:05→20:22)
[2019-01-17] MEDS: GLIMEPIRIDE 2 MG TABLET PO SCH (09:05)
[2019-01-17] MEDS: methylPREDNISolone SOD SUC 40 MG/1 ML VIAL IV SCH ×2 (09:05→20:22)
[2019-01-17] MEDS: INSULIN GLARGINE 100 UNIT/ML SUBCUT SCH (09:06)
[2019-01-17] MEDS: PANTOPRAZOLE 40 MG TABLET PO SCH (09:06)
[2019-01-17] MEDS: INSULIN REGULAR 100 UNIT/ML SUBCUT SCH ×4 (09:17→20:57)
[2019-01-17] MEDS: DESITIN 4OZ/NYSTATIN 15 GRAM MIXTURE PASTE TOP SCH ×2 (09:17→20:23)
[2019-01-17] MEDS: LIDOCAINE 5% PATCH TRANSDERM SCH (09:17)
[2019-01-17] MEDS: PIOGLITAZONE 45 MG TABLET PO SCH (11:18)
[2019-01-17] MEDS: VANCOMYCIN INJ 2,000 MG in SODIUM CHLORIDE 0.9% 500 ML IV SCH (16:08)
[2019-01-17] MEDS: SODIUM HYPOCHLORITE 0.25% IRR 1 APPLIC in IV BAG 1 EACH IRRIG PRN (16:15)
[2019-01-17] MEDS: LOSARTAN 50 MG TABLET PO SCH (20:21)
[2019-01-17] MEDS: ENOXAPARIN 40 MG/0.4 ML SYRINGE SUBCUT SCH (20:22)
[2019-01-17] MEDS: traZODone 50 MG TABLET PO SCH (20:22)
[2019-01-18] MEDS: KETOROLAC 15 MG/1 ML VIAL IV SCH ×3 (01:16→16:56)
[2019-01-18] MEDS: HYDROmorphone 2 MG/1 ML VIAL IV PRN ×3 (05:55→21:30)
[2019-01-18] MEDS: GABAPENTIN 400 MG CAPSULE PO SCH ×3 (08:52→21:33)
[2019-01-18] MEDS: FUROSEMIDE 40 MG/4 ML VIAL IV SCH ×2 (08:53→16:54)
[2019-01-18] MEDS: GLIMEPIRIDE 2 MG TABLET PO SCH (08:53)
[2019-01-18] MEDS: PANTOPRAZOLE 40 MG TABLET PO SCH (08:53)
[2019-01-18] MEDS: methylPREDNISolone SOD SUC 40 MG/1 ML VIAL IV SCH ×2 (08:55→21:33)
[2019-01-18] MEDS: INSULIN GLARGINE 100 UNIT/ML SUBCUT SCH (08:59)
[2019-01-18] MEDS: INSULIN REGULAR 100 UNIT/ML SUBCUT SCH ×4 (09:00→21:33)
[2019-01-18] MEDS: DESITIN 4OZ/NYSTATIN 15 GRAM MIXTURE PASTE TOP SCH ×2 (09:01→21:34)
[2019-01-18] MEDS: LIDOCAINE 5% PATCH TRANSDERM SCH (09:01)
[2019-01-18] MEDS: VANCOMYCIN INJ 2,000 MG in SODIUM CHLORIDE 0.9% 500 ML IV SCH (09:03)
[2019-01-18] MEDS: PIOGLITAZONE 45 MG TABLET PO SCH (09:07)
[2019-01-18] MEDS ORDERED: DEXTROSE 50% 25 GM/50 ML VIAL IV PRN (11:27)
[2019-01-18] MEDS ORDERED: CLINDAMYCIN INJ 900 MG in PREMIX 1 EACH IV ONE (16:05)
[2019-01-18] MEDS: ENOXAPARIN 40 MG/0.4 ML SYRINGE SUBCUT SCH (21:33)
[2019-01-18] MEDS: traZODone 50 MG TABLET PO SCH (21:33)
[2019-01-18] MEDS: LOSARTAN 50 MG TABLET PO SCH (21:33)
[2019-01-19] MEDS: KETOROLAC 15 MG/1 ML VIAL IV SCH ×3 (00:50→16:46)
[2019-01-19] MEDS: VANCOMYCIN INJ 2,000 MG in SODIUM CHLORIDE 0.9% 500 ML IV SCH ×2 (03:41→21:51)
[2019-01-19] MEDS: HYDROmorphone 2 MG/1 ML VIAL IV PRN ×7 (03:41→23:40)
[2019-01-19 05:05] LABS: Basophils % 0.2 % (0.0-0.8); Eosinophils % 0.3 % (0.00-10.9); Hematocrit 30.9 VOL% (42.0-52.0); Hemoglobin 9.7 GM/DL (14.0-18.0); Immature Granulocytes % 0.9 %; Immature Granulocytes Absolute 0.08 #; Lymphocytes # 1.2 10*3/uL (1.4-4.0); Lymphocytes % 13.5 % (21.2-54.2); Mean Corpuscular HGB Conc 31.4 GM/DL (32-36); Mean Corpuscular Volume 87.5 FL (87-102); Monocytes % 8.6 % (1.7-12.7); Neutrophils % 76.5 % (38.7-73.9); Platelet Count 386 T/CUMM (130-400); Red Blood Count 3.53 MC/CUMM (3.8-5.5); Red Cell Distribution Width 14.9 % (9.3-17.3); White Blood Count 8.7 T/CUMM (4-12)
[2019-01-19 05:12] LABS: Calcium 8.5 MG/DL (8.5-10.1); Osmolality,Calculated 282.1 MOS/KG (273-304)
[2019-01-19] MEDS ORDERED: LIDOCAINE 1% 5 ML VIAL ONE (07:31)
[2019-01-19] MEDS ORDERED: diphenhydrAMINE 50 MG/1 ML VIAL IV PRN (10:03)
[2019-01-19] MEDS ORDERED: PROMETHAZINE INJ 25 MG in SODIUM CHLORIDE 0.9% 50 ML IV PRN (10:03)
[2019-01-19] MEDS ORDERED: ONDANSETRON 4 MG/2 ML VIAL IV PRN (10:03)
[2019-01-19] MEDS ORDERED: MEPERIDINE 25 MG/1 ML VIAL ONE (10:06)
[2019-01-19] MEDS ORDERED: PROMETHAZINE 25 MG/1 ML VIAL ONE (10:06)
[2019-01-19] MEDS ORDERED: PROPOFOL 200 MG/20 ML VIAL IV ONE (10:07)
[2019-01-19] MEDS ORDERED: LIDOCAINE 2% 5 ML VIAL ONE (10:07)
[2019-01-19] MEDS ORDERED: MIDAZOLAM 2 MG/2 ML VIAL ONE (10:08)
[2019-01-19] MEDS ORDERED: SEVOFLURANE 1 UNIT/15 MINUTE INH ONE (10:08)
[2019-01-19] MEDS ORDERED: fentaNYL 100 MCG/2 ML VIAL ONE (10:08)
[2019-01-19] MEDS ORDERED: LABETALOL 20 MG/4 ML SYRINGE IV ONE (10:08)
[2019-01-19] MEDS ORDERED: ONDANSETRON 4 MG/2 ML VIAL ONE (10:09)
[2019-01-19] MEDS ORDERED: ACETAMINOPHEN 1,000 MG/100 ML VIAL IV ONE (10:09)
[2019-01-19] MEDS ORDERED: SODIUM CHLORIDE 0.9% 2,000 ML IV ONE (10:09)
[2019-01-19] MEDS ORDERED: ePHEDrine 50 MG/ML AMP ONE (10:09)
[2019-01-19] MEDS ORDERED: ETOMIDATE 40 MG/20 ML VIAL IV ONE (10:09)
[2019-01-19] MEDS: MEPERIDINE 25 MG/1 ML VIAL IV PRN ×2 (10:10→10:20)
[2019-01-19] MEDS ORDERED: HYDROmorphone 2 MG/1 ML VIAL ONE (10:23)
[2019-01-19] MEDS: DESITIN 4OZ/NYSTATIN 15 GRAM MIXTURE PASTE TOP SCH ×2 (10:50→21:25)
[2019-01-19] MEDS: INSULIN REGULAR 100 UNIT/ML SUBCUT SCH ×4 (10:50→21:23)
[2019-01-19] MEDS: INSULIN GLARGINE 100 UNIT/ML SUBCUT SCH (11:42)
[2019-01-19] MEDS: GABAPENTIN 400 MG CAPSULE PO SCH ×3 (11:42→21:22)
[2019-01-19] MEDS: LIDOCAINE 5% PATCH TRANSDERM SCH (11:42)
[2019-01-19] MEDS: FUROSEMIDE 40 MG/4 ML VIAL IV SCH ×2 (11:43→15:44)
[2019-01-19] MEDS: PIOGLITAZONE 45 MG TABLET PO SCH (12:03)
[2019-01-19] MEDS: PANTOPRAZOLE 40 MG TABLET PO SCH (12:03)
[2019-01-19] MEDS: GLIMEPIRIDE 2 MG TABLET PO SCH (12:03)
[2019-01-19] MEDS: methylPREDNISolone SOD SUC 40 MG/1 ML VIAL IV SCH (12:04)
[2019-01-19] MEDS: traZODone 50 MG TABLET PO SCH (21:18)
[2019-01-19] MEDS: ENOXAPARIN 40 MG/0.4 ML SYRINGE SUBCUT SCH (21:23)
[2019-01-19] MEDS: LOSARTAN 50 MG TABLET PO SCH (21:37)
[2019-01-20] MEDS: KETOROLAC 15 MG/1 ML VIAL IV SCH ×3 (00:20→16:41)
[2019-01-20 04:50] LABS: Basophils % 0.2 % (0.0-0.8); Eosinophils # 0.1 10*3/uL (0.0-0.87); Hematocrit 26.3 VOL% (42.0-52.0); Hemoglobin 8.1 GM/DL (14.0-18.0); Immature Granulocytes % 1.2 %; Immature Granulocytes Absolute 0.11 #; Lymphocytes # 2.2 10*3/uL (1.4-4.0); Mean Corpuscular HGB Conc 30.8 GM/DL (32-36); Mean Platelet Volume 9.7 FL (9.6-12.0); Monocytes % 11.3 % (1.7-12.7); Neutrophils % 63.3 % (38.7-73.9); Platelet Count 354 T/CUMM (130-400); Red Blood Count 2.99 MC/CUMM (3.8-5.5); White Blood Count 9.4 T/CUMM (4-12)
[2019-01-20 05:20] LABS: Calcium 8.3 MG/DL (8.5-10.1); Osmolality,Calculated 281.1 MOS/KG (273-304)
[2019-01-20] MEDS: HYDROmorphone 2 MG/1 ML VIAL IV PRN ×3 (05:22→17:57)
[2019-01-20] MEDS: INSULIN REGULAR 100 UNIT/ML SUBCUT SCH ×4 (08:36→21:32)
[2019-01-20] MEDS: INSULIN GLARGINE 100 UNIT/ML SUBCUT SCH (08:37)
[2019-01-20] MEDS: FUROSEMIDE 40 MG/4 ML VIAL IV SCH ×2 (08:38→16:42)
[2019-01-20] MEDS: PANTOPRAZOLE 40 MG TABLET PO SCH (08:38)
[2019-01-20] MEDS: PIOGLITAZONE 45 MG TABLET PO SCH (08:38)
[2019-01-20] MEDS: GABAPENTIN 400 MG CAPSULE PO SCH ×3 (08:39→20:30)
[2019-01-20] MEDS: GLIMEPIRIDE 2 MG TABLET PO SCH (08:39)
[2019-01-20] MEDS: DESITIN 4OZ/NYSTATIN 15 GRAM MIXTURE PASTE TOP SCH ×2 (08:40→20:30)
[2019-01-20] MEDS: LIDOCAINE 5% PATCH TRANSDERM SCH (08:40)
[2019-01-20] MEDS: VANCOMYCIN INJ 2,000 MG in SODIUM CHLORIDE 0.9% 500 ML IV SCH (16:40)
[2019-01-20] MEDS: ENOXAPARIN 40 MG/0.4 ML SYRINGE SUBCUT SCH (20:30)
[2019-01-20] MEDS: traZODone 50 MG TABLET PO SCH (20:30)
[2019-01-20] MEDS: LOSARTAN 50 MG TABLET PO SCH (21:34)
[2019-01-21] MEDS: HYDROmorphone 2 MG/1 ML VIAL IV PRN ×4 (00:41→18:03)
[2019-01-21] MEDS: KETOROLAC 15 MG/1 ML VIAL IV SCH ×2 (01:48→09:51)
[2019-01-21 05:49] LABS: Basophils # 0.1 10*3/uL (0.0-0.2); Basophils % 0.5 % (0.0-0.8); Eosinophils # 0.1 10*3/uL (0.0-0.87); Eosinophils % 1.3 % (0.00-10.9); Hematocrit 27.1 VOL% (42.0-52.0); Hemoglobin 8.3 GM/DL (14.0-18.0); Immature Granulocytes % 1.3 %; Immature Granulocytes Absolute 0.13 #; Lymphocytes # 1.9 10*3/uL (1.4-4.0); Mean Corpuscular HGB Conc 30.6 GM/DL (32-36); Mean Corpuscular Volume 88.6 FL (87-102); Mean Platelet Volume 9.5 FL (9.6-12.0); Monocytes % 11.9 % (1.7-12.7); Platelet Count 338 T/CUMM (130-400); Red Blood Count 3.06 MC/CUMM (3.8-5.5); Red Cell Distribution Width 14.9 % (9.3-17.3)
[2019-01-21 06:36] LABS: Calcium 8.3 MG/DL (8.5-10.1)
[2019-01-21] MEDS: VANCOMYCIN INJ 2,000 MG in SODIUM CHLORIDE 0.9% 500 ML IV SCH (09:48)
[2019-01-21] MEDS: LIDOCAINE 5% PATCH TRANSDERM SCH (09:51)
[2019-01-21] MEDS: FUROSEMIDE 40 MG/4 ML VIAL IV SCH ×2 (09:53→15:46)
[2019-01-21] MEDS: INSULIN GLARGINE 100 UNIT/ML SUBCUT SCH (09:54)
[2019-01-21] MEDS: INSULIN REGULAR 100 UNIT/ML SUBCUT SCH ×4 (09:54→20:52)
[2019-01-21] MEDS: PIOGLITAZONE 45 MG TABLET PO SCH (09:55)
[2019-01-21] MEDS: PANTOPRAZOLE 40 MG TABLET PO SCH (09:55)
[2019-01-21] MEDS: GLIMEPIRIDE 2 MG TABLET PO SCH (09:55)
[2019-01-21] MEDS: GABAPENTIN 400 MG CAPSULE PO SCH ×3 (09:55→20:52)
[2019-01-21] MEDS: DESITIN 4OZ/NYSTATIN 15 GRAM MIXTURE PASTE TOP SCH ×2 (09:56→20:56)
[2019-01-21] MEDS ORDERED: INSULIN GLARGINE 100 UNIT/ML SUBCUT SCH (10:01)
[2019-01-21] MEDS: ENOXAPARIN 40 MG/0.4 ML SYRINGE SUBCUT SCH (20:51)
[2019-01-21] MEDS: traZODone 50 MG TABLET PO SCH (20:52)
[2019-01-21] MEDS: LOSARTAN 50 MG TABLET PO SCH (20:53)
[2019-01-22] MEDS: VANCOMYCIN INJ 2,000 MG in SODIUM CHLORIDE 0.9% 500 ML IV SCH (03:38)
[2019-01-22] MEDS: HYDROmorphone 2 MG/1 ML VIAL IV PRN ×2 (03:38→09:27)
[2019-01-22 05:18] LABS: Basophils # 0.1 10*3/uL (0.0-0.2); Basophils % 0.6 % (0.0-0.8); Eosinophils # 0.2 10*3/uL (0.0-0.87); Eosinophils % 1.9 % (0.00-10.9); Hematocrit 27.4 VOL% (42.0-52.0); Hemoglobin 8.3 GM/DL (14.0-18.0); Immature Granulocytes % 1.3 %; Immature Granulocytes Absolute 0.14 #; Lymphocytes # 1.8 10*3/uL (1.4-4.0); Lymphocytes % 17.1 % (21.2-54.2); Mean Corpuscular HGB Conc 30.3 GM/DL (32-36); Mean Corpuscular Volume 89.3 FL (87-102); Mean Platelet Volume 9.3 FL (9.6-12.0); Monocytes % 11.9 % (1.7-12.7); Neutrophils % 67.2 % (38.7-73.9); Platelet Count 354 T/CUMM (130-400); Red Blood Count 3.07 MC/CUMM (3.8-5.5); Red Cell Distribution Width 14.8 % (9.3-17.3); White Blood Count 10.4 T/CUMM (4-12)
[2019-01-22 05:51] LABS: Calcium 8.4 MG/DL (8.5-10.1); Osmolality,Calculated 281.8 MOS/KG (273-304)
[2019-01-22] MEDS: PIOGLITAZONE 45 MG TABLET PO SCH (09:14)
[2019-01-22] MEDS: GABAPENTIN 400 MG CAPSULE PO SCH (09:14)
[2019-01-22] MEDS: FUROSEMIDE 40 MG/4 ML VIAL IV SCH (09:15)
[2019-01-22] MEDS: PANTOPRAZOLE 40 MG TABLET PO SCH (09:15)
[2019-01-22] MEDS: GLIMEPIRIDE 2 MG TABLET PO SCH (09:15)
[2019-01-22] MEDS: MAGNESIUM HYDROXIDE SUSP 30 ML UDCUP PO PRN (09:19)
[2019-01-22] MEDS: INSULIN REGULAR 100 UNIT/ML SUBCUT SCH ×2 (09:20→12:52)
[2019-01-22] MEDS: DESITIN 4OZ/NYSTATIN 15 GRAM MIXTURE PASTE TOP SCH (09:23)
[2019-01-22] MEDS: LIDOCAINE 5% PATCH TRANSDERM SCH (09:23)
[2019-01-22 12:11] VITALS: BP 121/64
== END 2019-01-22 14:55 | DRG 240 ==
LOC: N.2E 17:14
PROVIDERS: ADMIT Family Medicine; ATTEND Family Medicine

== ENCOUNTER 2019-02-01 21:39 | Inpatient (IN) ==
[2019-02-01] MEDS ORDERED: VANCOMYCIN INJ 1,000 MG in SODIUM CHLORIDE 0.9% 250 ML IV STA (22:15)
[2019-02-01] MEDS ORDERED: SODIUM CHLORIDE 0.9% 1,000 ML IV STA (22:15)
[2019-02-01 23:27] LABS: Basophils % 0.3 % (0.0-0.8); Eosinophils # 0.1 10*3/uL (0.0-0.87); Eosinophils % 0.7 % (0.00-10.9); Hematocrit 23.3 VOL% (42.0-52.0); Hemoglobin 7.2 GM/DL (14.0-18.0); Immature Granulocytes % 1.1 %; Immature Granulocytes Absolute 0.15 #; Lymphocytes # 2.9 10*3/uL (1.4-4.0); Lymphocytes % 21.5 % (21.2-54.2); Mean Corpuscular HGB Conc 30.9 GM/DL (32-36); Mean Corpuscular Volume 86.3 FL (87-102); Mean Platelet Volume 9.1 FL (9.6-12.0); Monocytes % 10.9 % (1.7-12.7); Neutrophils % 65.5 % (38.7-73.9); Platelet Count 400 T/CUMM (130-400); Red Cell Distribution Width 14.6 % (9.3-17.3); White Blood Count 13.4 T/CUMM (4-12)
[2019-02-01 23:50] LABS: Alanine Aminotransferase 21 U/L (16-61); Albumin 1.7 G/DL (3.4-5.0); Alkaline Phosphatase 209 U/L (45-117); Amylase 29 U/L (25-115); Aspartate Amino Transferase 17 U/L (0-37); Bilirubin,Total < 0.39 MG/DL (0.2-1.0); Blood Urea Nitrogen 18 MG/DL (7-18); Calcium 8.6 MG/DL (8.5-10.1); Estimated Glom Filtration Rate 103 ML/MIN; Glucose 198 MG/DL (74-106); Osmolality,Calculated 273.4 MOS/KG (273-304); Total Protein 6.9 G/DL (6.4-8.3)
[2019-02-01 23:53] LABS: Apearance,Urine CLEAR (Clear); Bacteria,Urine Occasional /HPF (Few); Bilirubin,Urine Negative (Negative); Blood, Urine Negative (Negative); Glucose,Urine (UA) Negative (Negative); Hyaline Casts,Urine 4 /LPF (0-3); Ketones,Urine Negative (Negative); Mucus,Urine Occasional /LPF (Occasional); Nitrite,Urine Negative (Negative); Protein,Urine Negative; RBC,Urine 1 /HPF (0-4); Squamous Epithelial Cell,Urine Occasional /HPF (0-10); Urine Color Amber (Yellow); Urine Specific Gravity 1.017 (1.001-1.035); WBC,Urine 3 /HPF (0-6)
[2019-02-02 00:27] LABS: Sedimentation Rate-Westergren 136 MM/HR (0-20)
[2019-02-02] MEDS ORDERED: HYDROmorphone 2 MG/1 ML VIAL IV STA (00:59)
[2019-02-02] MEDS ORDERED: ONDANSETRON 4 MG/2 ML VIAL ONE (01:15)
[2019-02-02] MEDS ORDERED: ONDANSETRON 4 MG/2 ML VIAL IV PRN (01:23)
[2019-02-02] MEDS ORDERED: GLUCAGON 1 MG VIAL IM PRN (01:23)
[2019-02-02] MEDS ORDERED: DEXTROSE 10% 250 ML BAG IV PRN (01:23)
[2019-02-02] MEDS: SODIUM CHLORIDE 0.9% 1,000 ML IV SCH ×3 (02:07→18:37)
[2019-02-02] MEDS ORDERED: PIPERACILLIN/TAZOBACTAM 3,375 MG in SODIUM CHLORIDE 0.9% 100 ML IV SCH (03:00)
[2019-02-02 03:04] LABS: Basophils % 0.2 % (0.0-0.8); Eosinophils # 0.1 10*3/uL (0.0-0.87); Hematocrit 23.7 VOL% (42.0-52.0); Hemoglobin 7.2 GM/DL (14.0-18.0); Immature Granulocytes % 1.3 %; Immature Granulocytes Absolute 0.17 #; Lymphocytes # 2.9 10*3/uL (1.4-4.0); Lymphocytes % 22.7 % (21.2-54.2); Mean Corpuscular HGB Conc 30.4 GM/DL (32-36); Mean Corpuscular Volume 86.2 FL (87-102); Mean Platelet Volume 9.3 FL (9.6-12.0); Monocytes % 11.2 % (1.7-12.7); Neutrophils % 63.6 % (38.7-73.9); Platelet Count 433 T/CUMM (130-400); Red Blood Count 2.75 MC/CUMM (3.8-5.5); Red Cell Distribution Width 14.8 % (9.3-17.3); White Blood Count 12.7 T/CUMM (4-12)
[2019-02-02 03:05] LABS: Albumin 1.7 G/DL (3.4-5.0); Calcium 8.2 MG/DL (8.5-10.1); Osmolality,Calculated 277.7 MOS/KG (273-304)
[2019-02-02] MEDS: ALBUTEROL/IPRATROPIUM 3 ML NEB RESP TX SCH ×6 (03:57→23:27)
[2019-02-02] MEDS ORDERED: VANCOMYCIN INJ 2,000 MG in SODIUM CHLORIDE 0.9% 500 ML IV SCH (04:00)
[2019-02-02] MEDS: HYDROmorphone 2 MG/1 ML VIAL IV PRN ×5 (06:26→22:51)
[2019-02-02] MEDS ORDERED: MAGNESIUM SULF RIDER 2 GM in PREMIX 1 EACH IV PRN (07:37)
[2019-02-02] MEDS ORDERED: SODIUM CHLORIDE 0.9% 1,000 ML IV PRN ×2 (07:38→12:52)
[2019-02-02] MEDS ORDERED: SKIN HEALING OINT (AQUAPHOR) 50 GM TUBE TOP PRN (07:39)
[2019-02-02] MEDS ORDERED: MAGNESIUM SULF RIDER 4 GM in PREMIX 1 EACH IV PRN (07:46)
[2019-02-02 08:06] LABS: Basophils % 0.3 % (0.0-0.8); Eosinophils # 0.1 10*3/uL (0.0-0.87); Eosinophils % 1.2 % (0.00-10.9); Hemoglobin 7.4 GM/DL (14.0-18.0); Immature Granulocytes % 1.4 %; Immature Granulocytes Absolute 0.16 #; Lymphocytes % 17.7 % (21.2-54.2); Mean Corpuscular HGB Conc 30.8 GM/DL (32-36); Mean Corpuscular Volume 86.3 FL (87-102); Monocytes % 11.1 % (1.7-12.7); Neutrophils % 68.3 % (38.7-73.9); Platelet Count 398 T/CUMM (130-400); Red Blood Count 2.78 MC/CUMM (3.8-5.5); Red Cell Distribution Width 14.7 % (9.3-17.3); White Blood Count 11.2 T/CUMM (4-12)
[2019-02-02] MEDS: INSULIN REGULAR 100 UNIT/ML SUBCUT SCH ×4 (08:43→21:51)
[2019-02-02] MEDS ORDERED: [UNRECOGNIZED DRUG - OTHER] TOP SCH (09:00)
[2019-02-02] MEDS ORDERED: DESITIN TOP SCH (09:00)
[2019-02-02 09:06] LABS: Sedimentation Rate-Westergren 135 MM/HR (0-20)
[2019-02-02] MEDS: PIOGLITAZONE 45 MG TABLET PO SCH (09:55)
[2019-02-02] MEDS: ENOXAPARIN 40 MG/0.4 ML SYRINGE SUBCUT SCH (09:59)
[2019-02-02] MEDS: cefTRIAXone 1,000 MG in SYRINGE 1 EACH IV SCH (10:00)
[2019-02-02] MEDS: GABAPENTIN 400 MG CAPSULE PO SCH ×3 (10:00→21:08)
[2019-02-02] MEDS: GLIMEPIRIDE 2 MG TABLET PO SCH (10:00)
[2019-02-02] MEDS: FUROSEMIDE 40 MG TABLET PO SCH (10:00)
[2019-02-02] MEDS: DOCUSATE SODIUM 100 MG CAPSULE PO SCH ×2 (10:00→21:07)
[2019-02-02] MEDS: INSULIN GLARGINE 100 UNIT/ML SUBCUT SCH (10:01)
[2019-02-02] MEDS: LIDOCAINE 5% PATCH TRANSDERM SCH (10:01)
[2019-02-02] MEDS: PANTOPRAZOLE 40 MG VIAL IV SCH (10:03)
[2019-02-02 10:04] LABS: Folate 9.5 NG/ML (5.4-24.0); Vitamin B12 417 PG/ML (211-911)
[2019-02-02] MEDS: ACETAMINOPHEN 325 MG TABLET PO PRN (10:10)
[2019-02-02] MEDS ORDERED: AZITHROMYCIN 250 MG TABLET PO ONE (18:01)
[2019-02-02] MEDS: traZODone 50 MG TABLET PO SCH (21:07)
[2019-02-02] MEDS: LOSARTAN 50 MG TABLET PO SCH (21:08)
[2019-02-03] MEDS: INSULIN REGULAR 100 UNIT/ML SUBCUT SCH ×4 (01:22→18:43)
[2019-02-03] MEDS: ALBUTEROL/IPRATROPIUM 3 ML NEB RESP TX SCH ×6 (02:00→23:54)
[2019-02-03] MEDS: HYDROmorphone 2 MG/1 ML VIAL IV PRN ×5 (04:23→22:12)
[2019-02-03 04:59] LABS: Basophils % 0.4 % (0.0-0.8); Eosinophils # 0.1 10*3/uL (0.0-0.87); Eosinophils % 1.3 % (0.00-10.9); Hematocrit 26.6 VOL% (42.0-52.0); Hemoglobin 8.4 GM/DL (14.0-18.0); Immature Granulocytes % 1.5 %; Immature Granulocytes Absolute 0.16 #; Lymphocytes # 2.1 10*3/uL (1.4-4.0); Lymphocytes % 20.4 % (21.2-54.2); Mean Corpuscular HGB Conc 31.6 GM/DL (32-36); Mean Corpuscular Volume 86.4 FL (87-102); Mean Platelet Volume 9.5 FL (9.6-12.0); Monocytes % 13.6 % (1.7-12.7); Neutrophils % 62.8 % (38.7-73.9); Platelet Count 439 T/CUMM (130-400); Red Blood Count 3.08 MC/CUMM (3.8-5.5); Red Cell Distribution Width 14.9 % (9.3-17.3); White Blood Count 10.4 T/CUMM (4-12)
[2019-02-03 05:13] LABS: Alanine Aminotransferase 18 U/L (16-61); Albumin 1.7 G/DL (3.4-5.0); Alkaline Phosphatase 191 U/L (45-117); Aspartate Amino Transferase 15 U/L (0-37); Bilirubin,Total < 0.39 MG/DL (0.2-1.0); Blood Urea Nitrogen 11 MG/DL (7-18); Calcium 8.4 MG/DL (8.5-10.1); Estimated Glom Filtration Rate 146 ML/MIN; Glucose 138 MG/DL (74-106); HDL Cholesterol 25 MG/DL (40-60); Osmolality,Calculated 273.8 MOS/KG (273-304); Total Protein 7.4 G/DL (6.4-8.3); Triglycerides 100 MG/DL (2-150)
[2019-02-03] MEDS: SODIUM CHLORIDE 0.9% 1,000 ML IV SCH ×4 (05:57→18:44)
[2019-02-03 08:48] LABS: Hemoglobin A1 (Alkaline) 97.9 % (96.5-98.5); Hemoglobin A2 (Alkaline) 2.1 % (1.5-3.5)
[2019-02-03] MEDS: cefTRIAXone 1,000 MG in SYRINGE 1 EACH IV SCH (09:35)
[2019-02-03] MEDS: GABAPENTIN 400 MG CAPSULE PO SCH ×3 (09:36→20:43)
[2019-02-03] MEDS: DOCUSATE SODIUM 100 MG CAPSULE PO SCH ×2 (09:36→20:43)
[2019-02-03] MEDS: FUROSEMIDE 40 MG TABLET PO SCH (09:36)
[2019-02-03] MEDS: GLIMEPIRIDE 2 MG TABLET PO SCH (09:36)
[2019-02-03] MEDS: INSULIN GLARGINE 100 UNIT/ML SUBCUT SCH (09:36)
[2019-02-03] MEDS: PIOGLITAZONE 45 MG TABLET PO SCH (09:36)
[2019-02-03] MEDS: LIDOCAINE 5% PATCH TRANSDERM SCH (09:37)
[2019-02-03] MEDS: ENOXAPARIN 40 MG/0.4 ML SYRINGE SUBCUT SCH (09:37)
[2019-02-03] MEDS: PANTOPRAZOLE 40 MG VIAL IV SCH (09:38)
[2019-02-03] MEDS: AZITHROMYCIN 250 MG TABLET PO SCH (09:38)
[2019-02-03] MEDS: ACETAMINOPHEN 325 MG TABLET PO PRN (12:36)
[2019-02-03] MEDS: LOSARTAN 50 MG TABLET PO SCH (20:43)
[2019-02-03] MEDS: traZODone 50 MG TABLET PO SCH (20:43)
[2019-02-04] MEDS: INSULIN REGULAR 100 UNIT/ML SUBCUT SCH ×3 (01:37→12:22)
[2019-02-04] MEDS: ALBUTEROL/IPRATROPIUM 3 ML NEB RESP TX SCH ×3 (02:57→11:10)
[2019-02-04] MEDS: SODIUM CHLORIDE 0.9% 1,000 ML IV SCH ×2 (03:04→09:51)
[2019-02-04] MEDS: HYDROmorphone 2 MG/1 ML VIAL IV PRN ×3 (05:20→13:32)
[2019-02-04 05:26] LABS: Basophils % 0.3 % (0.0-0.8); Eosinophils # 0.2 10*3/uL (0.0-0.87); Eosinophils % 1.8 % (0.00-10.9); Hematocrit 26.8 VOL% (42.0-52.0); Hemoglobin 8.5 GM/DL (14.0-18.0); Immature Granulocytes Absolute 0.11 #; Lymphocytes # 1.7 10*3/uL (1.4-4.0); Lymphocytes % 15.8 % (21.2-54.2); Mean Corpuscular HGB Conc 31.7 GM/DL (32-36); Mean Corpuscular Volume 86.5 FL (87-102); Mean Platelet Volume 9.5 FL (9.6-12.0); Monocytes % 11.8 % (1.7-12.7); Neutrophils % 69.3 % (38.7-73.9); Platelet Count 475 T/CUMM (130-400); Red Cell Distribution Width 14.8 % (9.3-17.3); White Blood Count 10.8 T/CUMM (4-12)
[2019-02-04 05:58] LABS: Albumin 1.7 G/DL (3.4-5.0); Bilirubin,Total 1.1 MG/DL (0.2-1.0); Calcium 8.7 MG/DL (8.5-10.1); Osmolality,Calculated 276.8 MOS/KG (273-304); Total Protein 7.5 G/DL (6.4-8.3)
[2019-02-04] MEDS: GLIMEPIRIDE 2 MG TABLET PO SCH (08:46)
[2019-02-04] MEDS: ENOXAPARIN 40 MG/0.4 ML SYRINGE SUBCUT SCH (08:46)
[2019-02-04] MEDS: GABAPENTIN 400 MG CAPSULE PO SCH ×2 (08:46→15:11)
[2019-02-04] MEDS: AZITHROMYCIN 250 MG TABLET PO SCH (08:46)
[2019-02-04] MEDS: DOCUSATE SODIUM 100 MG CAPSULE PO SCH (08:46)
[2019-02-04] MEDS: FUROSEMIDE 40 MG TABLET PO SCH (08:46)
[2019-02-04] MEDS: PIOGLITAZONE 45 MG TABLET PO SCH (08:46)
[2019-02-04] MEDS: cefTRIAXone 1,000 MG in SYRINGE 1 EACH IV SCH (08:46)
[2019-02-04] MEDS: INSULIN GLARGINE 100 UNIT/ML SUBCUT SCH (08:47)
[2019-02-04] MEDS: PANTOPRAZOLE 40 MG VIAL IV SCH (08:47)
[2019-02-04] MEDS ORDERED: MAGNESIUM SULF RIDER 2 GM in PREMIX 1 EACH IV ONE (09:00)
[2019-02-04] MEDS: LIDOCAINE 5% PATCH TRANSDERM SCH (09:13)
[2019-02-04 12:04] VITALS: BP 167/93
[2019-02-04] MEDS: POTASSIUM CHLORIDE RIDER 10 MEQ in PREMIX 1 EACH IV SCH ×3 (12:22→15:11)
[2019-02-04] MEDS ORDERED: POTASSIUM CHLORIDE 10 MEQ TABLET PO SCH (21:00)
[2019-02-05] MEDS ORDERED: LEVOFLOXACIN 500 MG TABLET PO SCH (09:00)
== END 2019-02-04 15:09 | disposition swing bed (61) | DRG 194 ==
LOC: EDBD → EDUNIT# → N.ED 21:39 → N.EDINP 02-02 00:53 → N.2E 02-02 01:11
PROVIDERS: ADMIT Family Medicine; ATTEND Family Medicine

== ENCOUNTER 2019-02-06 01:13 | Inpatient (IN) ==
[2019-02-06] MEDS ORDERED: ETOMIDATE 20 MG/10 ML VIAL IV ONE (01:24)
[2019-02-06] MEDS ORDERED: ROCURONIUM 100 MG/10 ML VIAL IV ONE (01:25)
[2019-02-06] MEDS ORDERED: DILTIAZEM 25 MG/5 ML VIAL IV ONE (01:32)
[2019-02-06] MEDS ORDERED: DILTIAZEM 50 MG/10 ML VIAL IV ONE (01:35)
[2019-02-06] MEDS ORDERED: ASPIRIN 325 MG TABLET PO STA (01:37)
[2019-02-06] MEDS ORDERED: DILTIAZEM 50 MG/10 ML VIAL IV STA ×2 (01:37→02:12)
[2019-02-06] MEDS: dilTIAZem Drip 125 MG/125 ML PREMIX IV SCH ×2 (01:49→05:45)
[2019-02-06 02:02] LABS: Basophils # 0.1 10*3/uL (0.0-0.2); Basophils % 0.3 % (0.0-0.8); Eosinophils # 0.1 10*3/uL (0.0-0.87); Eosinophils % 0.2 % (0.00-10.9); Hematocrit 34.4 VOL% (42.0-52.0); Hemoglobin 10.5 GM/DL (14.0-18.0); Immature Granulocytes % 1.3 %; Immature Granulocytes Absolute 0.27 #; Lymphocytes # 1.6 10*3/uL (1.4-4.0); Lymphocytes % 7.7 % (21.2-54.2); Mean Corpuscular HGB Conc 30.5 GM/DL (32-36); Mean Corpuscular Volume 86.9 FL (87-102); Mean Platelet Volume 9.4 FL (9.6-12.0); Neutrophils % 88.5 % (38.7-73.9); Platelet Count 650 T/CUMM (130-400); Red Blood Count 3.96 MC/CUMM (3.8-5.5); Red Cell Distribution Width 15.1 % (9.3-17.3); White Blood Count 21.3 T/CUMM (4-12)
[2019-02-06 02:10] LABS: INR 1.1; PT Patient Result 12.4 SECS (9.6-12.2); Partial Thromboplastin Time 26.9 SECS (20.8-36.0)
[2019-02-06 02:15] LABS: Bilirubin,Total 0.6 MG/DL (0.2-1.0); CKMB % 7.6 %; Osmolality,Calculated 277.8 MOS/KG (273-304); Total Protein 8.6 G/DL (6.4-8.3)
[2019-02-06 02:20] LABS: Troponin I 1.06 NG/ML (0.00-0.045)
[2019-02-06] MEDS ORDERED: SODIUM CHLORIDE 0.9% 1,000 ML IV STA (02:23)
[2019-02-06] MEDS ORDERED: PIPERACILLIN/TAZOBACTAM 3,375 MG in SODIUM CHLORIDE 0.9% 100 ML IV STA (02:24)
[2019-02-06] MEDS ORDERED: METOPROLOL TARTRATE 5 MG/5 ML VIAL IV STA (02:38)
[2019-02-06] MEDS ORDERED: METOPROLOL TARTRATE 5 MG/5 ML VIAL IV ONE (02:39)
[2019-02-06 03:23] LABS: ABG Base Excess -2.4 MMOL/L (-2.5-2.5); ABG HCO3 22.4 MMOL/L (20-26); ABG Oxygen Saturation 99.2 % (95-100); ABG PCO2 66.1 MM HG (35-48); ABG PH 7.214 (7.35-7.45); ABG TCO2 24.9 MMOL/L (23-27)
[2019-02-06 03:26] LABS: Apearance,Urine Slightly Hazy (Clear); Bacteria,Urine Occasional /HPF (Few); Bilirubin,Urine Negative (Negative); Blood, Urine Small mg/dL (Negative); Glucose,Urine (UA) Negative (Negative); Granular Casts,Urine 4 /LPF (0-1); Hyaline Casts,Urine 25 /LPF (0-3); Ketones,Urine Negative (Negative); Mucus,Urine Occasional /LPF (Occasional); Nitrite,Urine Negative (Negative); Protein,Urine 100 MG/DL; RBC,Urine 3 /HPF (0-4); Squamous Epithelial Cell,Urine Occasional /HPF (0-10); Urine Color Yellow (Yellow); Urine Specific Gravity 1.011 (1.001-1.035); Urine Urobilinogen < 2.0 EU/DL (0.2-1.0); WBC,Urine 4 /HPF (0-6)
[2019-02-06 04:15] LABS: Eosinophils 1 % (0-10); Lymphocytes 4 % (20-55); Platelet Estimate Increased; Polychromasia Few; Segmented Neutrophils 92 % (50-85); Total Cells Counted 100
[2019-02-06] MEDS ORDERED: ENOXAPARIN 30 MG/0.3 ML SYRINGE SUBCUT SCH (04:30)
[2019-02-06] MEDS ORDERED: dilTIAZem Drip 125 MG/125 ML PREMIX IV SCH (04:47)
[2019-02-06] MEDS: SODIUM CHLORIDE 0.9% 1,000 ML IV SCH ×3 (05:50→23:00)
[2019-02-06] MEDS ORDERED: PHENYLEPHRINE DRIP 40 MG/250 ML PREMIX IV ONE (06:04)
[2019-02-06] MEDS: PHENYLEPHRINE DRIP 40 MG/250 ML PREMIX IV PRN ×2 (06:05→09:30)
[2019-02-06] MEDS ORDERED: NOREPINEPHRINE 4 MG/4 ML VIAL IV ONE (06:57)
[2019-02-06] MEDS ORDERED: SODIUM CHLORIDE 0.9% 500 ML IV ONE (07:16)
[2019-02-06] MEDS ORDERED: ENOXAPARIN 120 MG/0.8 ML SYRINGE SUBCUT ONE (07:37)
[2019-02-06] MEDS ORDERED: NOREPINEPHRINE 8 MG in SODIUM CHLORIDE 0.9% 242 ML IV PRN (08:00)
[2019-02-06] MEDS: PANTOPRAZOLE 40 MG VIAL IV SCH (08:20)
[2019-02-06] MEDS: PIPERACILLIN/TAZOBACTAM 3,375 MG in SODIUM CHLORIDE 0.9% 100 ML IV SCH ×2 (11:30→18:43)
[2019-02-06] MEDS ORDERED: CLOPIDOGREL 300 MG TABLET PO ONE (12:07)
[2019-02-06] MEDS ORDERED: NOREPINEPHRINE 16 MG in SODIUM CHLORIDE 0.9% 234 ML IV PRN (13:19)
[2019-02-06] MEDS ORDERED: MAGNESIUM SULF RIDER 4 GM in PREMIX 1 EACH IV PRN (19:44)
[2019-02-06] MEDS ORDERED: MAGNESIUM SULF RIDER 50 ML IV ONE (19:47)
[2019-02-06] MEDS: ACETAMINOPHEN 325 MG TABLET PO PRN (20:15)
[2019-02-06] MEDS: MAGNESIUM SULF RIDER 2 GM in PREMIX 1 EACH IV PRN (20:20)
[2019-02-06] MEDS: POTASSIUM CHLORIDE RIDER 10 MEQ in PREMIX 1 EACH IV PRN (20:20)
[2019-02-06] MEDS ORDERED: DOBUTamine 500 MG/250 ML PREMIX IV PRN (23:50)
[2019-02-06] MEDS ORDERED: FUROSEMIDE 40 MG/4 ML VIAL IV ONE (23:51)
[2019-02-07] MEDS: ACETAMINOPHEN 325 MG TABLET PO PRN ×2 (02:04→19:15)
[2019-02-07] MEDS: dilTIAZem Drip 125 MG/125 ML PREMIX IV SCH (02:04)
[2019-02-07] MEDS: PIPERACILLIN/TAZOBACTAM 3,375 MG in SODIUM CHLORIDE 0.9% 100 ML IV SCH ×3 (03:45→18:15)
[2019-02-07 04:08] LABS: Basophils % 0.2 % (0.0-0.8); Eosinophils % 0.2 % (0.00-10.9); Hematocrit 24.7 VOL% (42.0-52.0); Immature Granulocytes % 1.7 %; Immature Granulocytes Absolute 0.34 #; Lymphocytes # 2.3 10*3/uL (1.4-4.0); Lymphocytes % 11.8 % (21.2-54.2); Mean Corpuscular HGB Conc 31.2 GM/DL (32-36); Mean Corpuscular Volume 86.1 FL (87-102); Mean Platelet Volume 9.1 FL (9.6-12.0); Monocytes % 4.2 % (1.7-12.7); Neutrophils % 81.9 % (38.7-73.9); Platelet Count 417 T/CUMM (130-400); Red Blood Count 2.87 MC/CUMM (3.8-5.5); Red Cell Distribution Width 15.6 % (9.3-17.3); White Blood Count 19.7 T/CUMM (4-12)
[2019-02-07 04:19] LABS: Hemoglobin 7.7 GM/DL (14.0-18.0)
[2019-02-07 04:24] LABS: Calcium 7.8 MG/DL (8.5-10.1); Osmolality,Calculated 282.5 MOS/KG (273-304)
[2019-02-07 04:38] LABS: ABG HCO3 25.4 MMOL/L (20-26); ABG Oxygen Saturation 99.2 % (95-100); ABG PCO2 36.6 MM HG (35-48); ABG PH 7.443 (7.35-7.45); ABG TCO2 23.3 MMOL/L (23-27)
[2019-02-07 04:42] LABS: Basophils % 0.2 % (0.0-0.8); Eosinophils % 0.1 % (0.00-10.9); Hemoglobin 7.9 GM/DL (14.0-18.0); Immature Granulocytes % 1.7 %; Immature Granulocytes Absolute 0.34 #; Lymphocytes # 2.5 10*3/uL (1.4-4.0); Lymphocytes % 12.3 % (21.2-54.2); Mean Corpuscular HGB Conc 31.6 GM/DL (32-36); Mean Corpuscular Volume 85.3 FL (87-102); Monocytes % 4.4 % (1.7-12.7); Neutrophils % 81.3 % (38.7-73.9); Platelet Count 410 T/CUMM (130-400); Red Blood Count 2.93 MC/CUMM (3.8-5.5); Red Cell Distribution Width 15.6 % (9.3-17.3); White Blood Count 19.9 T/CUMM (4-12)
[2019-02-07] MEDS ORDERED: POTASSIUM CHLORIDE RIDER 100 ML IV ONE (04:43)
[2019-02-07] MEDS ORDERED: POTASSIUM CHLORIDE RIDER 200 ML IV ONE (04:43)
[2019-02-07] MEDS: POTASSIUM CHLORIDE RIDER 10 MEQ in PREMIX 1 EACH IV PRN (04:50)
[2019-02-07] MEDS: POTASSIUM CHLORIDE RIDER 20 MEQ in PREMIX 1 EACH IV PRN ×2 (05:16→06:23)
[2019-02-07] MEDS: SODIUM CHLORIDE 0.9% 1,000 ML IV SCH ×2 (07:00→13:55)
[2019-02-07] MEDS: CLOPIDOGREL 75 MG TABLET PO SCH (08:20)
[2019-02-07] MEDS: PANTOPRAZOLE 40 MG VIAL IV SCH (08:20)
[2019-02-07] MEDS: INSULIN REGULAR 100 UNIT/ML SUBCUT SCH ×5 (08:20→23:55)
[2019-02-07] MEDS ORDERED: FUROSEMIDE 40 MG/4 ML VIAL IV ONE (09:09)
[2019-02-07] MEDS ORDERED: SODIUM CHLORIDE 0.9% 250 ML IV PRN (09:11)
[2019-02-07] MEDS: fentaNYL INJ 1,250 MCG in SODIUM CHLORIDE 0.9% 225 ML IV PRN ×2 (09:20→17:10)
[2019-02-07 09:30] LABS: % Iron Saturation 23.6 % (18-50)
[2019-02-07] MEDS: LEVOFLOXACIN INJ 500 MG in PREMIX 1 EACH IV SCH (10:25)
[2019-02-07] MEDS: ASPIRIN CHEW 81 MG TABLET PO SCH (11:30)
[2019-02-07] MEDS: MULTIVITAMIN LIQUID (CENTRUM) 60 ML BOTTLE PO SCH (11:30)
[2019-02-07 17:50] LABS: Hemoglobin 9.3 GM/DL (14.0-18.0)
[2019-02-07] MEDS: ROSUVASTATIN 20 MG TABLET PO SCH (20:46)
[2019-02-07] MEDS: carvediloL 3.125 MG TABLET PO SCH (20:46)
[2019-02-08] MEDS: fentaNYL INJ 1,250 MCG in SODIUM CHLORIDE 0.9% 225 ML IV PRN ×3 (01:00→16:15)
[2019-02-08] MEDS: PIPERACILLIN/TAZOBACTAM 3,375 MG in SODIUM CHLORIDE 0.9% 100 ML IV SCH ×3 (02:31→18:00)
[2019-02-08 03:56] LABS: ABG Base Excess -0.5 MMOL/L (-2.5-2.5); ABG HCO3 23.7 MMOL/L (20-26); ABG Oxygen Saturation 97.8 % (95-100); ABG PH 7.425 (7.35-7.45); ABG PO2 100.9 MM HG (80-95); ABG TCO2 24.9 MMOL/L (23-27)
[2019-02-08 03:58] LABS: Basophils # 0.1 10*3/uL (0.0-0.2); Basophils % 0.3 % (0.0-0.8); Eosinophils # 0.1 10*3/uL (0.0-0.87); Eosinophils % 0.8 % (0.00-10.9); Hematocrit 27.5 VOL% (42.0-52.0); Hemoglobin 8.6 GM/DL (14.0-18.0); Immature Granulocytes % 1.9 %; Immature Granulocytes Absolute 0.29 #; Lymphocytes # 2.6 10*3/uL (1.4-4.0); Mean Corpuscular HGB Conc 31.3 GM/DL (32-36); Mean Corpuscular Volume 86.5 FL (87-102); Mean Platelet Volume 9.4 FL (9.6-12.0); Monocytes % 6.6 % (1.7-12.7); Neutrophils % 73.4 % (38.7-73.9); Platelet Count 376 T/CUMM (130-400); Red Blood Count 3.18 MC/CUMM (3.8-5.5); Red Cell Distribution Width 15.7 % (9.3-17.3); White Blood Count 15.5 T/CUMM (4-12)
[2019-02-08 04:18] LABS: Calcium 7.8 MG/DL (8.5-10.1); Osmolality,Calculated 294.1 MOS/KG (273-304)
[2019-02-08] MEDS ORDERED: POTASSIUM CHLORIDE RIDER 200 ML IV ONE (04:35)
[2019-02-08] MEDS: POTASSIUM CHLORIDE RIDER 20 MEQ in PREMIX 1 EACH IV PRN ×3 (04:40→09:14)
[2019-02-08] MEDS: INSULIN REGULAR 100 UNIT/ML SUBCUT SCH ×6 (04:40→23:58)
[2019-02-08] MEDS: SODIUM CHLORIDE 0.9% 1,000 ML IV SCH (08:46)
[2019-02-08] MEDS: ASPIRIN CHEW 81 MG TABLET PO SCH (09:06)
[2019-02-08] MEDS: LEVOFLOXACIN INJ 500 MG in PREMIX 1 EACH IV SCH (09:06)
[2019-02-08] MEDS: CLOPIDOGREL 75 MG TABLET PO SCH (09:06)
[2019-02-08] MEDS: MULTIVITAMIN LIQUID (CENTRUM) 60 ML BOTTLE PO SCH (09:06)
[2019-02-08] MEDS: PANTOPRAZOLE 40 MG VIAL IV SCH (09:06)
[2019-02-08] MEDS: carvediloL 3.125 MG TABLET PO SCH ×3 (10:21→20:30)
[2019-02-08] MEDS: LOSARTAN 25 MG TABLET PO SCH (10:21)
[2019-02-08] MEDS: ROSUVASTATIN 20 MG TABLET PO SCH (20:31)
[2019-02-09] MEDS: INSULIN REGULAR 100 UNIT/ML SUBCUT SCH ×5 (03:49→21:19)
[2019-02-09] MEDS: PIPERACILLIN/TAZOBACTAM 3,375 MG in SODIUM CHLORIDE 0.9% 100 ML IV SCH ×3 (03:49→18:00)
[2019-02-09 04:37] LABS: Basophils % 0.3 % (0.0-0.8); Eosinophils # 0.2 10*3/uL (0.0-0.87); Eosinophils % 1.2 % (0.00-10.9); Hematocrit 27.5 VOL% (42.0-52.0); Hemoglobin 8.3 GM/DL (14.0-18.0); Immature Granulocytes % 2.6 %; Immature Granulocytes Absolute 0.33 #; Lymphocytes # 2.1 10*3/uL (1.4-4.0); Lymphocytes % 16.1 % (21.2-54.2); Mean Corpuscular HGB Conc 30.2 GM/DL (32-36); Mean Corpuscular Volume 86.5 FL (87-102); Mean Platelet Volume 9.6 FL (9.6-12.0); Monocytes % 9.3 % (1.7-12.7); Neutrophils % 70.5 % (38.7-73.9); Platelet Count 314 T/CUMM (130-400); Red Blood Count 3.18 MC/CUMM (3.8-5.5); Red Cell Distribution Width 15.6 % (9.3-17.3); White Blood Count 12.7 T/CUMM (4-12)
[2019-02-09 05:01] LABS: Calcium 7.8 MG/DL (8.5-10.1); Osmolality,Calculated 296.7 MOS/KG (273-304)
[2019-02-09 05:10] LABS: Prealbumin 5.3 MG/DL (20-40)
[2019-02-09] MEDS: SODIUM CHLORIDE 0.9% 1,000 ML IV SCH (06:10)
[2019-02-09 06:37] LABS: ABG Base Excess 0.8 MMOL/L (-2.5-2.5); ABG HCO3 25.2 MMOL/L (20-26); ABG Oxygen Saturation 99.2 % (95-100); ABG PCO2 38.5 MM HG (35-48); ABG PH 7.423 (7.35-7.45); ABG TCO2 23.3 MMOL/L (23-27)
[2019-02-09] MEDS: fentaNYL INJ 1,250 MCG in SODIUM CHLORIDE 0.9% 225 ML IV PRN ×3 (08:00→16:00)
[2019-02-09] MEDS ORDERED: FUROSEMIDE 40 MG/4 ML VIAL IV ONE (08:12)
[2019-02-09] MEDS: CLOPIDOGREL 75 MG TABLET PO SCH (09:00)
[2019-02-09] MEDS: carvediloL 3.125 MG TABLET PO SCH ×2 (09:00→21:18)
[2019-02-09] MEDS: LEVOFLOXACIN INJ 500 MG in PREMIX 1 EACH IV SCH (09:00)
[2019-02-09] MEDS: LOSARTAN 25 MG TABLET PO SCH (09:00)
[2019-02-09] MEDS: MULTIVITAMIN LIQUID (CENTRUM) 60 ML BOTTLE PO SCH (09:00)
[2019-02-09] MEDS: ASPIRIN CHEW 81 MG TABLET PO SCH (09:00)
[2019-02-09] MEDS: PANTOPRAZOLE 40 MG VIAL IV SCH (09:00)
[2019-02-09] MEDS: POTASSIUM CHLORIDE RIDER 20 MEQ in PREMIX 1 EACH IV PRN (09:01)
[2019-02-09] MEDS: ROSUVASTATIN 20 MG TABLET PO SCH (21:18)
[2019-02-10] MEDS: fentaNYL INJ 1,250 MCG in SODIUM CHLORIDE 0.9% 225 ML IV PRN ×2 (00:31→08:44)
[2019-02-10] MEDS: INSULIN REGULAR 100 UNIT/ML SUBCUT SCH ×7 (00:32→23:43)
[2019-02-10] MEDS: SODIUM CHLORIDE 0.9% 1,000 ML IV SCH ×2 (00:33→20:16)
[2019-02-10] MEDS: PIPERACILLIN/TAZOBACTAM 3,375 MG in SODIUM CHLORIDE 0.9% 100 ML IV SCH ×3 (03:08→20:16)
[2019-02-10 05:15] LABS: ABG Base Excess 1.8 MMOL/L (-2.5-2.5); ABG HCO3 26.1 MMOL/L (20-26); ABG Oxygen Saturation 99.5 % (95-100); ABG PCO2 40.8 MM HG (35-48); ABG PH 7.419 (7.35-7.45); ABG TCO2 24.6 MMOL/L (23-27)
[2019-02-10 05:27] LABS: Basophils % 0.2 % (0.0-0.8); Eosinophils # 0.2 10*3/uL (0.0-0.87); Eosinophils % 1.6 % (0.00-10.9); Hematocrit 26.5 VOL% (42.0-52.0); Hemoglobin 8.1 GM/DL (14.0-18.0); Immature Granulocytes % 2.9 %; Immature Granulocytes Absolute 0.35 #; Lymphocytes # 1.8 10*3/uL (1.4-4.0); Lymphocytes % 14.5 % (21.2-54.2); Mean Corpuscular HGB Conc 30.6 GM/DL (32-36); Mean Corpuscular Volume 86.3 FL (87-102); Mean Platelet Volume 10.1 FL (9.6-12.0); Monocytes % 10.6 % (1.7-12.7); Neutrophils % 70.2 % (38.7-73.9); Platelet Count 304 T/CUMM (130-400); Red Blood Count 3.07 MC/CUMM (3.8-5.5); Red Cell Distribution Width 15.5 % (9.3-17.3); White Blood Count 12.2 T/CUMM (4-12)
[2019-02-10 05:44] LABS: Calcium 7.9 MG/DL (8.5-10.1); Osmolality,Calculated 290.1 MOS/KG (273-304)
[2019-02-10] MEDS: ASPIRIN CHEW 81 MG TABLET PO SCH (08:50)
[2019-02-10] MEDS: carvediloL 3.125 MG TABLET PO SCH ×2 (08:50→20:17)
[2019-02-10] MEDS: CLOPIDOGREL 75 MG TABLET PO SCH (08:50)
[2019-02-10] MEDS: MULTIVITAMIN LIQUID (CENTRUM) 60 ML BOTTLE PO SCH (08:51)
[2019-02-10] MEDS: LOSARTAN 25 MG TABLET PO SCH (08:52)
[2019-02-10] MEDS: FUROSEMIDE 40 MG/4 ML VIAL IV SCH ×2 (08:52→16:05)
[2019-02-10] MEDS: LEVOFLOXACIN INJ 500 MG in PREMIX 1 EACH IV SCH (08:59)
[2019-02-10] MEDS: PANTOPRAZOLE 40 MG VIAL IV SCH (09:10)
[2019-02-10] MEDS: fentaNYL INJ 2,500 MCG in SODIUM CHLORIDE 0.9% 450 ML IV PRN (14:20)
[2019-02-10] MEDS: ROSUVASTATIN 20 MG TABLET PO SCH (20:17)
[2019-02-10] MEDS: SERTRALINE 25 MG TABLET PO SCH (20:17)
[2019-02-11] MEDS: fentaNYL INJ 2,500 MCG in SODIUM CHLORIDE 0.9% 450 ML IV PRN ×3 (01:16→23:49)
[2019-02-11] MEDS: PIPERACILLIN/TAZOBACTAM 3,375 MG in SODIUM CHLORIDE 0.9% 100 ML IV SCH ×3 (03:49→19:34)
[2019-02-11 04:16] LABS: ABG Base Excess 3.9 MMOL/L (-2.5-2.5); ABG HCO3 27.9 MMOL/L (20-26); ABG PCO2 46.6 MM HG (35-48); ABG PH 7.404 (7.35-7.45); ABG TCO2 27.1 MMOL/L (23-27)
[2019-02-11 04:32] LABS: Basophils # 0.1 10*3/uL (0.0-0.2); Basophils % 0.4 % (0.0-0.8); Eosinophils # 0.3 10*3/uL (0.0-0.87); Hematocrit 27.6 VOL% (42.0-52.0); Hemoglobin 8.2 GM/DL (14.0-18.0); Immature Granulocytes % 2.1 %; Immature Granulocytes Absolute 0.28 #; Lymphocytes # 1.7 10*3/uL (1.4-4.0); Lymphocytes % 12.6 % (21.2-54.2); Mean Corpuscular HGB Conc 29.7 GM/DL (32-36); Mean Corpuscular Volume 88.2 FL (87-102); Mean Platelet Volume 10.3 FL (9.6-12.0); Monocytes % 9.3 % (1.7-12.7); Neutrophils % 73.6 % (38.7-73.9); Platelet Count 314 T/CUMM (130-400); Red Blood Count 3.13 MC/CUMM (3.8-5.5); Red Cell Distribution Width 15.5 % (9.3-17.3); White Blood Count 13.4 T/CUMM (4-12)
[2019-02-11 04:41] LABS: Calcium 8.1 MG/DL (8.5-10.1); Osmolality,Calculated 294.7 MOS/KG (273-304)
[2019-02-11] MEDS: INSULIN REGULAR 100 UNIT/ML SUBCUT SCH ×6 (04:57→23:50)
[2019-02-11] MEDS: MAGNESIUM SULF RIDER 2 GM in PREMIX 1 EACH IV PRN (04:58)
[2019-02-11] MEDS: ASPIRIN CHEW 81 MG TABLET PO SCH (08:10)
[2019-02-11] MEDS: CLOPIDOGREL 75 MG TABLET PO SCH (08:10)
[2019-02-11] MEDS: LEVOFLOXACIN INJ 500 MG in PREMIX 1 EACH IV SCH (08:10)
[2019-02-11] MEDS: FUROSEMIDE 40 MG/4 ML VIAL IV SCH ×2 (08:11→17:23)
[2019-02-11] MEDS: PANTOPRAZOLE 40 MG VIAL IV SCH (08:15)
[2019-02-11] MEDS: MULTIVITAMIN LIQUID (CENTRUM) 60 ML BOTTLE PO SCH (10:37)
[2019-02-11] MEDS: LOSARTAN 25 MG TABLET PO SCH (10:38)
[2019-02-11] MEDS: carvediloL 3.125 MG TABLET PO SCH ×2 (10:38→21:15)
[2019-02-11] MEDS: SODIUM CHLORIDE 0.9% 1,000 ML IV SCH (17:01)
[2019-02-11] MEDS: SERTRALINE 25 MG TABLET PO SCH (21:15)
[2019-02-11] MEDS: ROSUVASTATIN 20 MG TABLET PO SCH (21:15)
[2019-02-12] MEDS: PIPERACILLIN/TAZOBACTAM 3,375 MG in SODIUM CHLORIDE 0.9% 100 ML IV SCH ×3 (03:10→18:35)
[2019-02-12 04:04] LABS: ABG Base Excess 5.7 MMOL/L (-2.5-2.5); ABG HCO3 29.6 MMOL/L (20-26); ABG Oxygen Saturation 98.1 % (95-100); ABG PCO2 48.6 MM HG (35-48); ABG PH 7.414 (7.35-7.45); ABG PO2 93.4 MM HG (80-95); ABG TCO2 28.9 MMOL/L (23-27)
[2019-02-12 04:11] LABS: Basophils # 0.1 10*3/uL (0.0-0.2); Basophils % 0.5 % (0.0-0.8); Eosinophils # 0.3 10*3/uL (0.0-0.87); Eosinophils % 2.5 % (0.00-10.9); Hematocrit 28.2 VOL% (42.0-52.0); Hemoglobin 8.5 GM/DL (14.0-18.0); Immature Granulocytes % 2.1 %; Immature Granulocytes Absolute 0.23 #; Lymphocytes # 1.9 10*3/uL (1.4-4.0); Lymphocytes % 17.3 % (21.2-54.2); Mean Corpuscular HGB Conc 30.1 GM/DL (32-36); Mean Corpuscular Volume 88.1 FL (87-102); Mean Platelet Volume 10.2 FL (9.6-12.0); Monocytes % 10.4 % (1.7-12.7); Neutrophils % 67.2 % (38.7-73.9); Platelet Count 315 T/CUMM (130-400); Red Cell Distribution Width 15.4 % (9.3-17.3); White Blood Count 10.9 T/CUMM (4-12)
[2019-02-12 04:26] LABS: Calcium 8.2 MG/DL (8.5-10.1); Osmolality,Calculated 294.7 MOS/KG (273-304)
[2019-02-12] MEDS: INSULIN REGULAR 100 UNIT/ML SUBCUT SCH ×5 (05:14→21:21)
[2019-02-12] MEDS ORDERED: INFLUENZA VIRUS VACCINE 0.5 ML SYRINGE IM ONE (05:55)
[2019-02-12] MEDS ORDERED: PNEUMOCOCCAL VACCINE (23 VALENT) 0.5 ML VIAL IM ONE (05:56)
[2019-02-12] MEDS: POTASSIUM CHLORIDE RIDER 20 MEQ in PREMIX 1 EACH IV PRN (06:23)
[2019-02-12] MEDS: MAGNESIUM SULF RIDER 2 GM in PREMIX 1 EACH IV PRN (06:23)
[2019-02-12] MEDS: FUROSEMIDE 40 MG/4 ML VIAL IV SCH ×2 (09:10→16:29)
[2019-02-12] MEDS: carvediloL 3.125 MG TABLET PO SCH ×2 (09:11→21:16)
[2019-02-12] MEDS: LOSARTAN 25 MG TABLET PO SCH (09:11)
[2019-02-12] MEDS: LEVOFLOXACIN INJ 500 MG in PREMIX 1 EACH IV SCH (09:12)
[2019-02-12] MEDS: MULTIVITAMIN LIQUID (CENTRUM) 60 ML BOTTLE PO SCH (09:12)
[2019-02-12] MEDS: ASPIRIN CHEW 81 MG TABLET PO SCH (09:12)
[2019-02-12] MEDS: CLOPIDOGREL 75 MG TABLET PO SCH (09:12)
[2019-02-12] MEDS: PANTOPRAZOLE 40 MG VIAL IV SCH (09:12)
[2019-02-12] MEDS: fentaNYL INJ 2,500 MCG in SODIUM CHLORIDE 0.9% 450 ML IV PRN ×2 (11:09→21:35)
[2019-02-12] MEDS: SODIUM CHLORIDE 0.9% 1,000 ML IV SCH (11:09)
[2019-02-12] MEDS: POTASSIUM CHLORIDE RIDER 10 MEQ in PREMIX 1 EACH IV PRN (12:52)
[2019-02-12] MEDS: SERTRALINE 25 MG TABLET PO SCH (21:16)
[2019-02-12] MEDS: ROSUVASTATIN 20 MG TABLET PO SCH (21:16)
[2019-02-13] MEDS: INSULIN REGULAR 100 UNIT/ML SUBCUT SCH ×6 (02:00→20:15)
[2019-02-13] MEDS: PIPERACILLIN/TAZOBACTAM 3,375 MG in SODIUM CHLORIDE 0.9% 100 ML IV SCH ×3 (02:01→18:16)
[2019-02-13 06:05] LABS: ABG Base Excess 7.4 MMOL/L (-2.5-2.5); ABG HCO3 31.2 MMOL/L (20-26); ABG Oxygen Saturation 98.4 % (95-100); ABG PCO2 52.7 MM HG (35-48); ABG PH 7.406 (7.35-7.45)
[2019-02-13] MEDS: fentaNYL INJ 2,500 MCG in SODIUM CHLORIDE 0.9% 450 ML IV PRN (07:54)
[2019-02-13] MEDS: SODIUM CHLORIDE 0.9% 1,000 ML IV SCH (08:03)
[2019-02-13] MEDS: CLOPIDOGREL 75 MG TABLET PO SCH (08:03)
[2019-02-13] MEDS: carvediloL 3.125 MG TABLET PO SCH ×2 (08:04→20:15)
[2019-02-13] MEDS: ASPIRIN CHEW 81 MG TABLET PO SCH (08:04)
[2019-02-13] MEDS: LOSARTAN 25 MG TABLET PO SCH (08:04)
[2019-02-13] MEDS: FUROSEMIDE 40 MG/4 ML VIAL IV SCH ×2 (08:05→17:21)
[2019-02-13] MEDS: PANTOPRAZOLE 40 MG VIAL IV SCH (08:06)
[2019-02-13] MEDS: LEVOFLOXACIN INJ 500 MG in PREMIX 1 EACH IV SCH (08:07)
[2019-02-13 10:19] LABS: Calcium 8.4 MG/DL (8.5-10.1)
[2019-02-13] MEDS: MULTIVITAMIN LIQUID (CENTRUM) 60 ML BOTTLE PO SCH (11:59)
[2019-02-13] MEDS: POTASSIUM CHLORIDE RIDER 20 MEQ in PREMIX 1 EACH IV PRN ×3 (12:17→20:16)
[2019-02-13] MEDS: SERTRALINE 25 MG TABLET PO SCH (20:14)
[2019-02-13] MEDS: ROSUVASTATIN 20 MG TABLET PO SCH (20:15)
[2019-02-13] MEDS: POTASSIUM CHLORIDE RIDER 10 MEQ in PREMIX 1 EACH IV PRN (22:03)
[2019-02-14] MEDS: INSULIN REGULAR 100 UNIT/ML SUBCUT SCH ×6 (00:10→21:10)
[2019-02-14] MEDS: fentaNYL INJ 2,500 MCG in SODIUM CHLORIDE 0.9% 450 ML IV PRN ×3 (00:58→21:54)
[2019-02-14 03:36] LABS: ABG HCO3 34.7 MMOL/L (20-26); ABG Oxygen Saturation 98.6 % (95-100); ABG PCO2 51.8 MM HG (35-48); ABG PH 7.455 (7.35-7.45); ABG TCO2 33.7 MMOL/L (23-27)
[2019-02-14 03:42] LABS: Basophils % 0.3 % (0.0-0.8); Eosinophils # 0.2 10*3/uL (0.0-0.87); Eosinophils % 2.5 % (0.00-10.9); Hematocrit 26.9 VOL% (42.0-52.0); Immature Granulocytes % 1.2 %; Immature Granulocytes Absolute 0.11 #; Lymphocytes # 1.6 10*3/uL (1.4-4.0); Lymphocytes % 17.1 % (21.2-54.2); Mean Corpuscular HGB Conc 29.7 GM/DL (32-36); Mean Corpuscular Volume 87.6 FL (87-102); Mean Platelet Volume 10.5 FL (9.6-12.0); Monocytes % 11.6 % (1.7-12.7); Neutrophils % 67.3 % (38.7-73.9); Platelet Count 370 T/CUMM (130-400); Red Blood Count 3.07 MC/CUMM (3.8-5.5); Red Cell Distribution Width 14.9 % (9.3-17.3); White Blood Count 9.4 T/CUMM (4-12)
[2019-02-14] MEDS: PIPERACILLIN/TAZOBACTAM 3,375 MG in SODIUM CHLORIDE 0.9% 100 ML IV SCH ×3 (03:50→18:46)
[2019-02-14 03:56] LABS: Calcium 8.4 MG/DL (8.5-10.1)
[2019-02-14] MEDS: POTASSIUM CHLORIDE RIDER 20 MEQ in PREMIX 1 EACH IV PRN ×4 (04:42→21:28)
[2019-02-14] MEDS: MAGNESIUM SULF RIDER 2 GM in PREMIX 1 EACH IV PRN (04:46)
[2019-02-14] MEDS: CLOPIDOGREL 75 MG TABLET PO SCH (08:43)
[2019-02-14] MEDS: carvediloL 3.125 MG TABLET PO SCH ×2 (08:43→21:10)
[2019-02-14] MEDS: LOSARTAN 25 MG TABLET PO SCH (08:43)
[2019-02-14] MEDS: FUROSEMIDE 40 MG/4 ML VIAL IV SCH ×2 (08:44→15:36)
[2019-02-14] MEDS: ASPIRIN CHEW 81 MG TABLET PO SCH (08:44)
[2019-02-14] MEDS: MULTIVITAMIN LIQUID (CENTRUM) 60 ML BOTTLE PO SCH (09:09)
[2019-02-14] MEDS: PANTOPRAZOLE 40 MG VIAL IV SCH (09:30)
[2019-02-14] MEDS: SODIUM CHLORIDE 0.9% 1,000 ML IV SCH (09:32)
[2019-02-14] MEDS: LEVOFLOXACIN INJ 500 MG in PREMIX 1 EACH IV SCH (09:35)
[2019-02-14] MEDS: INSULIN GLARGINE 100 UNIT/ML SUBCUT SCH (13:05)
[2019-02-14] MEDS: GABAPENTIN 50 MG/ML 30 ML/BOTTLE PO SCH ×2 (15:36→21:11)
[2019-02-14] MEDS: SERTRALINE 25 MG TABLET PO SCH (21:11)
[2019-02-15] MEDS: INSULIN REGULAR 100 UNIT/ML SUBCUT SCH ×7 (00:12→21:38)
[2019-02-15] MEDS: ROSUVASTATIN 20 MG TABLET PO SCH ×2 (00:14→21:39)
[2019-02-15] MEDS: PIPERACILLIN/TAZOBACTAM 3,375 MG in SODIUM CHLORIDE 0.9% 100 ML IV SCH ×3 (03:50→18:12)
[2019-02-15] MEDS: POTASSIUM CHLORIDE RIDER 20 MEQ in PREMIX 1 EACH IV PRN (07:04)
[2019-02-15] MEDS: SODIUM CHLORIDE 0.9% 1,000 ML IV SCH (12:15)
[2019-02-15] MEDS: MULTIVITAMIN LIQUID (CENTRUM) 60 ML BOTTLE PO SCH (12:45)
[2019-02-15] MEDS: LEVOFLOXACIN INJ 500 MG in PREMIX 1 EACH IV SCH (12:45)
[2019-02-15] MEDS: ACETAMINOPHEN 325 MG TABLET PO PRN (12:45)
[2019-02-15] MEDS: GABAPENTIN 50 MG/ML 30 ML/BOTTLE PO SCH ×3 (12:46→22:17)
[2019-02-15] MEDS: INSULIN GLARGINE 100 UNIT/ML SUBCUT SCH (12:46)
[2019-02-15] MEDS: SPIRONOLACTONE 25 MG TABLET PO SCH (12:46)
[2019-02-15] MEDS: FUROSEMIDE 40 MG/4 ML VIAL IV SCH ×3 (12:47→18:12)
[2019-02-15] MEDS: PANTOPRAZOLE 40 MG VIAL IV SCH (12:47)
[2019-02-15] MEDS: LOSARTAN 25 MG TABLET PO SCH (12:48)
[2019-02-15] MEDS: CLOPIDOGREL 75 MG TABLET PO SCH (12:48)
[2019-02-15] MEDS: ASPIRIN CHEW 81 MG TABLET PO SCH (12:48)
[2019-02-15] MEDS: carvediloL 3.125 MG TABLET PO SCH ×2 (12:48→23:15)
[2019-02-15] MEDS: fentaNYL INJ 2,500 MCG in SODIUM CHLORIDE 0.9% 450 ML IV PRN ×2 (12:52→18:15)
[2019-02-15] MEDS: DESITIN 4OZ/NYSTATIN 15 GRAM MIXTURE PASTE TOP SCH ×2 (14:27→21:41)
[2019-02-15] MEDS: SERTRALINE 25 MG TABLET PO SCH (21:39)
[2019-02-16] MEDS: INSULIN REGULAR 100 UNIT/ML SUBCUT SCH ×7 (01:46→23:55)
[2019-02-16] MEDS: FUROSEMIDE 40 MG/4 ML VIAL IV SCH ×3 (01:47→19:33)
[2019-02-16] MEDS: fentaNYL INJ 2,500 MCG in SODIUM CHLORIDE 0.9% 450 ML IV PRN ×3 (02:20→19:27)
[2019-02-16] MEDS: PIPERACILLIN/TAZOBACTAM 3,375 MG in SODIUM CHLORIDE 0.9% 100 ML IV SCH ×3 (04:42→19:34)
[2019-02-16 04:59] LABS: ABG Base Excess 9.7 MMOL/L (-2.5-2.5); ABG HCO3 33.4 MMOL/L (20-26); ABG Oxygen Saturation 97.5 % (95-100); ABG PCO2 50.8 MM HG (35-48); ABG PO2 87.7 MM HG (80-95); ABG TCO2 31.5 MMOL/L (23-27)
[2019-02-16 07:05] LABS: Basophils % 0.4 % (0.0-0.8); Eosinophils # 0.4 10*3/uL (0.0-0.87); Eosinophils % 3.9 % (0.00-10.9); Hematocrit 27.6 VOL% (42.0-52.0); Hemoglobin 8.2 GM/DL (14.0-18.0); Immature Granulocytes % 1.1 %; Immature Granulocytes Absolute 0.11 #; Lymphocytes # 2.1 10*3/uL (1.4-4.0); Lymphocytes % 20.6 % (21.2-54.2); Mean Corpuscular HGB Conc 29.7 GM/DL (32-36); Mean Corpuscular Volume 87.1 FL (87-102); Mean Platelet Volume 10.4 FL (9.6-12.0); Monocytes % 11.7 % (1.7-12.7); Neutrophils % 62.3 % (38.7-73.9); Platelet Count 403 T/CUMM (130-400); Red Blood Count 3.17 MC/CUMM (3.8-5.5); White Blood Count 10.1 T/CUMM (4-12)
[2019-02-16 07:29] LABS: Calcium 8.4 MG/DL (8.5-10.1); Osmolality,Calculated 293.8 MOS/KG (273-304)
[2019-02-16] MEDS: INSULIN GLARGINE 100 UNIT/ML SUBCUT SCH (09:26)
[2019-02-16] MEDS: LEVOFLOXACIN INJ 500 MG in PREMIX 1 EACH IV SCH (09:27)
[2019-02-16] MEDS: PANTOPRAZOLE 40 MG VIAL IV SCH (09:27)
[2019-02-16] MEDS: ASPIRIN CHEW 81 MG TABLET PO SCH (09:27)
[2019-02-16] MEDS: SPIRONOLACTONE 25 MG TABLET PO SCH (09:27)
[2019-02-16] MEDS: LOSARTAN 25 MG TABLET PO SCH (09:27)
[2019-02-16] MEDS: carvediloL 3.125 MG TABLET PO SCH ×2 (09:28→21:07)
[2019-02-16] MEDS: CLOPIDOGREL 75 MG TABLET PO SCH (09:28)
[2019-02-16] MEDS: MULTIVITAMIN LIQUID (CENTRUM) 60 ML BOTTLE PO SCH (09:28)
[2019-02-16] MEDS: GABAPENTIN 50 MG/ML 30 ML/BOTTLE PO SCH ×3 (09:28→21:08)
[2019-02-16] MEDS: DESITIN 4OZ/NYSTATIN 15 GRAM MIXTURE PASTE TOP SCH ×2 (09:32→21:16)
[2019-02-16] MEDS: SODIUM CHLORIDE 0.9% 1,000 ML IV SCH (12:00)
[2019-02-16] MEDS: methylPREDNISolone SOD SUC 40 MG/1 ML VIAL IV SCH ×2 (13:30→21:07)
[2019-02-16] MEDS: metOLazone 5 MG TABLET PO SCH (13:30)
[2019-02-16] MEDS: SERTRALINE 25 MG TABLET PO SCH (21:07)
[2019-02-16] MEDS: ROSUVASTATIN 20 MG TABLET PO SCH (21:07)
[2019-02-17] MEDS: FUROSEMIDE 40 MG/4 ML VIAL IV SCH ×3 (03:32→17:30)
[2019-02-17] MEDS: PIPERACILLIN/TAZOBACTAM 3,375 MG in SODIUM CHLORIDE 0.9% 100 ML IV SCH ×3 (03:32→18:02)
[2019-02-17] MEDS: fentaNYL INJ 2,500 MCG in SODIUM CHLORIDE 0.9% 450 ML IV PRN ×2 (03:49→12:16)
[2019-02-17 04:19] LABS: ABG Base Excess 13.3 MMOL/L (-2.5-2.5); ABG HCO3 37.1 MMOL/L (20-26); ABG Oxygen Saturation 96.7 % (95-100); ABG PH 7.482 (7.35-7.45); ABG PO2 78.7 MM HG (80-95); ABG TCO2 35.5 MMOL/L (23-27)
[2019-02-17] MEDS: INSULIN REGULAR 100 UNIT/ML SUBCUT SCH ×5 (04:32→20:14)
[2019-02-17] MEDS: POTASSIUM CHLORIDE 20 MEQ/15 ML UDCUP PER TUBE PRN ×2 (08:42→11:01)
[2019-02-17] MEDS: metOLazone 5 MG TABLET PO SCH (08:43)
[2019-02-17] MEDS: LOSARTAN 25 MG TABLET PO SCH (08:43)
[2019-02-17] MEDS: CLOPIDOGREL 75 MG TABLET PO SCH (08:43)
[2019-02-17] MEDS: INSULIN GLARGINE 100 UNIT/ML SUBCUT SCH (08:44)
[2019-02-17] MEDS: ASPIRIN CHEW 81 MG TABLET PO SCH (08:44)
[2019-02-17] MEDS: SPIRONOLACTONE 25 MG TABLET PO SCH (08:44)
[2019-02-17] MEDS: carvediloL 3.125 MG TABLET PO SCH ×3 (08:44→20:13)
[2019-02-17] MEDS: PANTOPRAZOLE 40 MG VIAL IV SCH (08:45)
[2019-02-17] MEDS: GABAPENTIN 50 MG/ML 30 ML/BOTTLE PO SCH ×3 (08:46→20:14)
[2019-02-17] MEDS: MULTIVITAMIN LIQUID (CENTRUM) 60 ML BOTTLE PO SCH (08:46)
[2019-02-17] MEDS: methylPREDNISolone SOD SUC 40 MG/1 ML VIAL IV SCH ×2 (09:08→21:27)
[2019-02-17] MEDS: LEVOFLOXACIN INJ 500 MG in PREMIX 1 EACH IV SCH (09:14)
[2019-02-17] MEDS: DESITIN 4OZ/NYSTATIN 15 GRAM MIXTURE PASTE TOP SCH ×2 (09:16→20:15)
[2019-02-17] MEDS ORDERED: INSULIN GLARGINE 100 UNIT/ML SUBCUT SCH (09:40)
[2019-02-17] MEDS: DORNASE ALFA 2.5 MG/2.5 ML VIAL RESP TX SCH ×2 (11:45→20:13)
[2019-02-17] MEDS: SODIUM CHLORIDE 0.9% 1,000 ML IV SCH (12:04)
[2019-02-17] MEDS: DEXMEDETOMIDINE 200 MCG in SODIUM CHLORIDE 0.9% 48 ML IV PRN ×2 (13:20→15:45)
[2019-02-17] MEDS: DEXMEDETOMIDINE 400 MCG in SODIUM CHLORIDE 0.9% 96 ML IV PRN ×2 (17:58→22:11)
[2019-02-17] MEDS: ROSUVASTATIN 20 MG TABLET PO SCH (20:13)
[2019-02-17] MEDS: SERTRALINE 25 MG TABLET PO SCH (20:13)
[2019-02-18] MEDS: INSULIN REGULAR 100 UNIT/ML SUBCUT SCH ×6 (00:59→21:09)
[2019-02-18] MEDS: PIPERACILLIN/TAZOBACTAM 3,375 MG in SODIUM CHLORIDE 0.9% 100 ML IV SCH ×3 (02:24→18:07)
[2019-02-18] MEDS: FUROSEMIDE 40 MG/4 ML VIAL IV SCH ×3 (02:24→18:07)
[2019-02-18] MEDS: DEXMEDETOMIDINE 400 MCG in SODIUM CHLORIDE 0.9% 96 ML IV PRN ×5 (02:31→20:01)
[2019-02-18] MEDS: SODIUM CHLORIDE 0.9% 1,000 ML IV SCH ×2 (04:02→12:30)
[2019-02-18 04:46] LABS: ABG Base Excess 14.1 MMOL/L (-2.5-2.5); ABG HCO3 37.9 MMOL/L (20-26); ABG Oxygen Saturation 97.9 % (95-100); ABG PCO2 53.4 MM HG (35-48); ABG PH 7.481 (7.35-7.45); ABG PO2 90.4 MM HG (80-95)
[2019-02-18 04:47] LABS: Basophils % 0.2 % (0.0-0.8); Hematocrit 31.7 VOL% (42.0-52.0); Hemoglobin 9.8 GM/DL (14.0-18.0); Immature Granulocytes % 0.5 %; Immature Granulocytes Absolute 0.06 #; Lymphocytes # 1.3 10*3/uL (1.4-4.0); Mean Corpuscular HGB Conc 30.9 GM/DL (32-36); Mean Corpuscular Volume 83.9 FL (87-102); Mean Platelet Volume 10.8 FL (9.6-12.0); Monocytes % 6.6 % (1.7-12.7); Neutrophils % 81.7 % (38.7-73.9); Platelet Count 455 T/CUMM (130-400); Red Blood Count 3.78 MC/CUMM (3.8-5.5); Red Cell Distribution Width 14.5 % (9.3-17.3); White Blood Count 11.8 T/CUMM (4-12)
[2019-02-18 05:05] LABS: Calcium 8.9 MG/DL (8.5-10.1); Osmolality,Calculated 299.5 MOS/KG (273-304)
[2019-02-18 05:09] LABS: Prealbumin 12.3 MG/DL (20-40)
[2019-02-18] MEDS: POTASSIUM CHLORIDE 20 MEQ/15 ML UDCUP PER TUBE PRN ×2 (05:39→09:30)
[2019-02-18] MEDS: DORNASE ALFA 2.5 MG/2.5 ML VIAL RESP TX SCH ×2 (07:13→20:40)
[2019-02-18] MEDS ORDERED: amLODIPine 5 MG TABLET NG SCH (09:00)
[2019-02-18] MEDS: fentaNYL INJ 2,500 MCG in SODIUM CHLORIDE 0.9% 450 ML IV PRN ×2 (09:00→17:30)
[2019-02-18] MEDS: CLOPIDOGREL 75 MG TABLET PO SCH (09:30)
[2019-02-18] MEDS: SPIRONOLACTONE 25 MG TABLET PO SCH (09:30)
[2019-02-18] MEDS: metOLazone 5 MG TABLET PO SCH (09:30)
[2019-02-18] MEDS: DESITIN 4OZ/NYSTATIN 15 GRAM MIXTURE PASTE TOP SCH ×2 (09:30→21:10)
[2019-02-18] MEDS: methylPREDNISolone SOD SUC 40 MG/1 ML VIAL IV SCH (09:30)
[2019-02-18] MEDS: INSULIN GLARGINE 100 UNIT/ML SUBCUT SCH (09:30)
[2019-02-18] MEDS: PANTOPRAZOLE 40 MG VIAL IV SCH (09:30)
[2019-02-18] MEDS: MULTIVITAMIN LIQUID (CENTRUM) 60 ML BOTTLE PO SCH (09:30)
[2019-02-18] MEDS: LOSARTAN 50 MG TABLET PO SCH (09:30)
[2019-02-18] MEDS: LEVOFLOXACIN INJ 500 MG in PREMIX 1 EACH IV SCH (09:30)
[2019-02-18] MEDS: GABAPENTIN 50 MG/ML 30 ML/BOTTLE PO SCH ×3 (09:30→21:10)
[2019-02-18] MEDS: ASPIRIN CHEW 81 MG TABLET PO SCH (09:30)
[2019-02-18] MEDS: carvediloL 3.125 MG TABLET PO SCH ×2 (10:27→21:09)
[2019-02-18] MEDS: hydrALAZINE 20 MG/1 ML VIAL IV PRN (12:00)
[2019-02-18] MEDS: QUEtiapine 25 MG TABLET PO SCH ×2 (13:00→21:10)
[2019-02-18] MEDS: BUDESONIDE 0.5 MG/2 ML NEB RESP TX SCH ×2 (13:49→20:40)
[2019-02-18] MEDS ORDERED: amLODIPine 5 MG TABLET PO ONE (13:51)
[2019-02-18] MEDS: ROSUVASTATIN 20 MG TABLET PO SCH (21:09)
[2019-02-18] MEDS: SERTRALINE 25 MG TABLET PO SCH (21:10)
[2019-02-19] MEDS: INSULIN REGULAR 100 UNIT/ML SUBCUT SCH ×6 (01:04→18:27)
[2019-02-19] MEDS: PHENYLEPHRINE DRIP 40 MG/250 ML PREMIX IV PRN (02:49)
[2019-02-19] MEDS: FUROSEMIDE 40 MG/4 ML VIAL IV SCH ×2 (02:59→18:53)
[2019-02-19] MEDS: PIPERACILLIN/TAZOBACTAM 3,375 MG in SODIUM CHLORIDE 0.9% 100 ML IV SCH (03:47)
[2019-02-19 04:52] LABS: Basophils # 0.1 10*3/uL (0.0-0.2); Basophils % 0.4 % (0.0-0.8); Eosinophils % 0.2 % (0.00-10.9); Hematocrit 32.3 VOL% (42.0-52.0); Hemoglobin 9.9 GM/DL (14.0-18.0); Immature Granulocytes % 0.6 %; Immature Granulocytes Absolute 0.09 #; Lymphocytes # 3.9 10*3/uL (1.4-4.0); Lymphocytes % 27.3 % (21.2-54.2); Mean Corpuscular HGB Conc 30.7 GM/DL (32-36); Mean Corpuscular Volume 84.6 FL (87-102); Mean Platelet Volume 10.7 FL (9.6-12.0); Neutrophils % 58.5 % (38.7-73.9); Platelet Count 507 T/CUMM (130-400); Red Blood Count 3.82 MC/CUMM (3.8-5.5); Red Cell Distribution Width 14.7 % (9.3-17.3); White Blood Count 14.1 T/CUMM (4-12)
[2019-02-19 04:57] LABS: ABG Base Excess 14.7 MMOL/L (-2.5-2.5); ABG HCO3 38.6 MMOL/L (20-26); ABG Oxygen Saturation 98.6 % (95-100); ABG PCO2 53.2 MM HG (35-48); ABG PH 7.487 (7.35-7.45); ABG TCO2 37.1 MMOL/L (23-27)
[2019-02-19 05:30] LABS: Osmolality,Calculated 296.3 MOS/KG (273-304)
[2019-02-19] MEDS: POTASSIUM CHLORIDE RIDER 20 MEQ in PREMIX 1 EACH IV PRN ×2 (06:00→08:11)
[2019-02-19] MEDS: BUDESONIDE 0.5 MG/2 ML NEB RESP TX SCH ×2 (07:31→19:37)
[2019-02-19] MEDS: DORNASE ALFA 2.5 MG/2.5 ML VIAL RESP TX SCH ×2 (07:31→19:47)
[2019-02-19] MEDS: POTASSIUM CHLORIDE RIDER 10 MEQ in PREMIX 1 EACH IV PRN (09:51)
[2019-02-19] MEDS: CLOPIDOGREL 75 MG TABLET PO SCH (09:59)
[2019-02-19] MEDS: SPIRONOLACTONE 25 MG TABLET PO SCH (10:00)
[2019-02-19] MEDS: ASPIRIN CHEW 81 MG TABLET PO SCH (10:00)
[2019-02-19] MEDS: QUEtiapine 25 MG TABLET PO SCH ×2 (10:00→20:06)
[2019-02-19] MEDS: INSULIN GLARGINE 100 UNIT/ML SUBCUT SCH (10:00)
[2019-02-19] MEDS: carvediloL 3.125 MG TABLET PO SCH ×2 (10:00→20:06)
[2019-02-19] MEDS: LOSARTAN 50 MG TABLET PO SCH (10:01)
[2019-02-19] MEDS: LEVOFLOXACIN INJ 500 MG in PREMIX 1 EACH IV SCH (10:01)
[2019-02-19] MEDS: MULTIVITAMIN LIQUID (CENTRUM) 60 ML BOTTLE PO SCH (10:01)
[2019-02-19] MEDS: GABAPENTIN 50 MG/ML 30 ML/BOTTLE PO SCH ×3 (10:01→20:06)
[2019-02-19] MEDS: PANTOPRAZOLE 40 MG VIAL IV SCH (10:02)
[2019-02-19] MEDS: LINEZOLID INJ 600 MG in PREMIX 1 EACH IV SCH ×2 (13:21→20:06)
[2019-02-19] MEDS: DESITIN 4OZ/NYSTATIN 15 GRAM MIXTURE PASTE TOP SCH ×2 (15:58→20:07)
[2019-02-19] MEDS: SODIUM CHLORIDE 0.9% 1,000 ML IV SCH (15:58)
[2019-02-19] MEDS: DEXMEDETOMIDINE 400 MCG in SODIUM CHLORIDE 0.9% 96 ML IV PRN ×2 (16:50→23:42)
[2019-02-19] MEDS: fentaNYL INJ 2,500 MCG in SODIUM CHLORIDE 0.9% 450 ML IV PRN (16:51)
[2019-02-19] MEDS: POTASSIUM CHLORIDE 20 MEQ/15 ML UDCUP PER TUBE PRN (17:00)
[2019-02-19] MEDS ORDERED: BISACODYL 10 MG SUPP RECTAL ONE (17:03)
[2019-02-19] MEDS: ROSUVASTATIN 20 MG TABLET PO SCH (20:06)
[2019-02-19] MEDS: SERTRALINE 25 MG TABLET PO SCH (20:06)
[2019-02-20] MEDS: INSULIN REGULAR 100 UNIT/ML SUBCUT SCH ×5 (00:22→23:16)
[2019-02-20] MEDS: FUROSEMIDE 40 MG/4 ML VIAL IV SCH ×3 (02:36→18:34)
[2019-02-20 04:35] LABS: ABG Base Excess 12.3 MMOL/L (-2.5-2.5); ABG HCO3 36.1 MMOL/L (20-26); ABG Oxygen Saturation 98.8 % (95-100); ABG PCO2 52.5 MM HG (35-48); ABG PH 7.468 (7.35-7.45); ABG TCO2 34.4 MMOL/L (23-27)
[2019-02-20 04:46] LABS: Basophils # 0.1 10*3/uL (0.0-0.2); Basophils % 0.5 % (0.0-0.8); Eosinophils # 0.3 10*3/uL (0.0-0.87); Eosinophils % 2.3 % (0.00-10.9); Hematocrit 33.4 VOL% (42.0-52.0); Immature Granulocytes % 0.7 %; Immature Granulocytes Absolute 0.08 #; Lymphocytes # 2.9 10*3/uL (1.4-4.0); Mean Corpuscular HGB Conc 29.9 GM/DL (32-36); Mean Corpuscular Volume 86.1 FL (87-102); Mean Platelet Volume 10.4 FL (9.6-12.0); Monocytes % 13.5 % (1.7-12.7); Platelet Count 410 T/CUMM (130-400); Red Blood Count 3.88 MC/CUMM (3.8-5.5); Red Cell Distribution Width 14.9 % (9.3-17.3); White Blood Count 11.5 T/CUMM (4-12)
[2019-02-20 05:03] LABS: Albumin 1.9 G/DL (3.4-5.0); Bilirubin,Total 0.6 MG/DL (0.2-1.0); Calcium 8.5 MG/DL (8.5-10.1); Osmolality,Calculated 291.8 MOS/KG (273-304); Total Protein 7.7 G/DL (6.4-8.3)
[2019-02-20] MEDS: POTASSIUM CHLORIDE 20 MEQ/15 ML UDCUP PER TUBE PRN ×2 (06:10→08:29)
[2019-02-20] MEDS: DEXMEDETOMIDINE 400 MCG in SODIUM CHLORIDE 0.9% 96 ML IV PRN ×2 (06:56→17:14)
[2019-02-20] MEDS: DORNASE ALFA 2.5 MG/2.5 ML VIAL RESP TX SCH ×2 (07:16→18:30)
[2019-02-20] MEDS: BUDESONIDE 0.5 MG/2 ML NEB RESP TX SCH ×2 (07:16→18:30)
[2019-02-20] MEDS: LINEZOLID INJ 600 MG in PREMIX 1 EACH IV SCH ×2 (08:28→20:14)
[2019-02-20] MEDS: QUEtiapine 25 MG TABLET PO SCH ×2 (08:29→20:14)
[2019-02-20] MEDS: SPIRONOLACTONE 25 MG TABLET PO SCH (08:29)
[2019-02-20] MEDS: metOLazone 5 MG TABLET PO SCH (08:29)
[2019-02-20] MEDS: GABAPENTIN 50 MG/ML 30 ML/BOTTLE PO SCH ×3 (08:29→20:14)
[2019-02-20] MEDS: LACTULOSE 20 GM/30 ML UDCUP PO PRN (08:29)
[2019-02-20] MEDS: carvediloL 3.125 MG TABLET PO SCH ×2 (08:29→20:14)
[2019-02-20] MEDS: CLOPIDOGREL 75 MG TABLET PO SCH (08:29)
[2019-02-20] MEDS: ASPIRIN CHEW 81 MG TABLET PO SCH (08:29)
[2019-02-20] MEDS: MULTIVITAMIN LIQUID (CENTRUM) 60 ML BOTTLE PO SCH (08:29)
[2019-02-20] MEDS: LEVOFLOXACIN INJ 500 MG in PREMIX 1 EACH IV SCH (08:30)
[2019-02-20] MEDS: LOSARTAN 50 MG TABLET PO SCH (08:30)
[2019-02-20] MEDS: PANTOPRAZOLE 40 MG VIAL IV SCH (08:31)
[2019-02-20] MEDS: INSULIN GLARGINE 100 UNIT/ML SUBCUT SCH (08:52)
[2019-02-20] MEDS: DESITIN 4OZ/NYSTATIN 15 GRAM MIXTURE PASTE TOP SCH ×2 (12:31→20:14)
[2019-02-20] MEDS: methylPREDNISolone SOD SUC 40 MG/1 ML VIAL IV SCH ×2 (12:33→18:33)
[2019-02-20] MEDS: SODIUM CHLORIDE 0.9% 1,000 ML IV SCH (17:14)
[2019-02-20] MEDS: ROSUVASTATIN 20 MG TABLET PO SCH (20:14)
[2019-02-20] MEDS: SERTRALINE 25 MG TABLET PO SCH (20:14)
[2019-02-20] MEDS ORDERED: INSULIN GLARGINE 100 UNIT/ML SUBCUT SCH (22:37)
[2019-02-20] MEDS: ALBUMIN 25% 25 GM in PREMIX 1 EACH IV SCH (23:13)
[2019-02-21] MEDS: methylPREDNISolone SOD SUC 40 MG/1 ML VIAL IV SCH ×5 (01:15→23:49)
[2019-02-21] MEDS: fentaNYL INJ 2,500 MCG in SODIUM CHLORIDE 0.9% 450 ML IV PRN (01:53)
[2019-02-21] MEDS: FUROSEMIDE 40 MG/4 ML VIAL IV SCH ×3 (02:11→18:38)
[2019-02-21] MEDS: DEXMEDETOMIDINE 400 MCG in SODIUM CHLORIDE 0.9% 96 ML IV PRN ×3 (02:22→20:11)
[2019-02-21 04:16] LABS: ABG Base Excess 12.2 MMOL/L (-2.5-2.5); ABG HCO3 37.4 MMOL/L (20-26); ABG Oxygen Saturation 97.6 % (95-100); ABG PH 7.475 (7.35-7.45); ABG PO2 98.3 MM HG (80-95)
[2019-02-21 04:35] LABS: Basophils % 0.1 % (0.0-0.8); Hematocrit 31.9 VOL% (42.0-52.0); Hemoglobin 9.8 GM/DL (14.0-18.0); Immature Granulocytes % 0.8 %; Immature Granulocytes Absolute 0.09 #; Lymphocytes # 0.7 10*3/uL (1.4-4.0); Lymphocytes % 6.2 % (21.2-54.2); Mean Corpuscular HGB Conc 30.7 GM/DL (32-36); Mean Corpuscular Volume 83.5 FL (87-102); Mean Platelet Volume 11.1 FL (9.6-12.0); Monocytes % 3.1 % (1.7-12.7); Neutrophils % 89.8 % (38.7-73.9); Platelet Count 334 T/CUMM (130-400); Red Blood Count 3.82 MC/CUMM (3.8-5.5); Red Cell Distribution Width 14.5 % (9.3-17.3); White Blood Count 11.6 T/CUMM (4-12)
[2019-02-21 04:43] LABS: Calcium 9.1 MG/DL (8.5-10.1); Osmolality,Calculated 297.2 MOS/KG (273-304)
[2019-02-21] MEDS: INSULIN REGULAR 100 UNIT/ML SUBCUT SCH ×3 (05:30→11:25)
[2019-02-21] MEDS: ALBUMIN 25% 25 GM in PREMIX 1 EACH IV SCH ×3 (06:18→23:48)
[2019-02-21] MEDS: POTASSIUM CHLORIDE 20 MEQ/15 ML UDCUP PER TUBE PRN ×2 (06:50→08:22)
[2019-02-21] MEDS: BUDESONIDE 0.5 MG/2 ML NEB RESP TX SCH ×2 (06:57→19:30)
[2019-02-21] MEDS: DORNASE ALFA 2.5 MG/2.5 ML VIAL RESP TX SCH ×2 (06:57→19:30)
[2019-02-21] MEDS: LINEZOLID INJ 600 MG in PREMIX 1 EACH IV SCH ×2 (08:20→20:20)
[2019-02-21] MEDS: metOLazone 5 MG TABLET PO SCH (08:23)
[2019-02-21] MEDS: CLOPIDOGREL 75 MG TABLET PO SCH (08:23)
[2019-02-21] MEDS: SPIRONOLACTONE 25 MG TABLET PO SCH (08:23)
[2019-02-21] MEDS: LOSARTAN 50 MG TABLET PO SCH (08:24)
[2019-02-21] MEDS: PANTOPRAZOLE 40 MG VIAL IV SCH (08:24)
[2019-02-21] MEDS: QUEtiapine 25 MG TABLET PO SCH ×2 (08:24→20:26)
[2019-02-21] MEDS: ASPIRIN CHEW 81 MG TABLET PO SCH (08:24)
[2019-02-21] MEDS: carvediloL 3.125 MG TABLET PO SCH ×2 (08:24→20:26)
[2019-02-21] MEDS: MULTIVITAMIN LIQUID (CENTRUM) 60 ML BOTTLE PO SCH (08:27)
[2019-02-21] MEDS: GABAPENTIN 50 MG/ML 30 ML/BOTTLE PO SCH ×3 (08:27→20:27)
[2019-02-21] MEDS: ACETAMINOPHEN 325 MG TABLET PO PRN (08:27)
[2019-02-21] MEDS: DESITIN 4OZ/NYSTATIN 15 GRAM MIXTURE PASTE TOP SCH ×2 (08:28→20:27)
[2019-02-21] MEDS: INSULIN REGULAR DRIP 100 ML IV PRN (12:36)
[2019-02-21] MEDS: SODIUM CHLORIDE 0.9% 1,000 ML IV SCH (15:40)
[2019-02-21] MEDS: ROSUVASTATIN 20 MG TABLET PO SCH (20:26)
[2019-02-21] MEDS: SERTRALINE 25 MG TABLET PO SCH (20:26)
[2019-02-22] MEDS: INSULIN REGULAR DRIP 100 ML IV PRN ×3 (01:11→22:43)
[2019-02-22] MEDS: DEXMEDETOMIDINE 400 MCG in SODIUM CHLORIDE 0.9% 96 ML IV PRN ×4 (02:38→20:17)
[2019-02-22] MEDS: FUROSEMIDE 40 MG/4 ML VIAL IV SCH ×3 (02:39→18:27)
[2019-02-22 04:25] LABS: ABG Base Excess 12.8 MMOL/L (-2.5-2.5); ABG HCO3 36.7 MMOL/L (20-26); ABG PCO2 52.4 MM HG (35-48); ABG PH 7.473 (7.35-7.45); ABG TCO2 35.4 MMOL/L (23-27)
[2019-02-22 04:44] LABS: Hematocrit 28.6 VOL% (42.0-52.0); Hemoglobin 8.9 GM/DL (14.0-18.0); Immature Granulocytes % 0.4 %; Immature Granulocytes Absolute 0.05 #; Lymphocytes % 8.2 % (21.2-54.2); Mean Corpuscular HGB Conc 31.1 GM/DL (32-36); Mean Corpuscular Volume 83.1 FL (87-102); Mean Platelet Volume 11.7 FL (9.6-12.0); Monocytes % 5.7 % (1.7-12.7); Neutrophils % 85.7 % (38.7-73.9); Platelet Count 296 T/CUMM (130-400); Red Blood Count 3.44 MC/CUMM (3.8-5.5); Red Cell Distribution Width 14.6 % (9.3-17.3); White Blood Count 12.4 T/CUMM (4-12)
[2019-02-22 05:07] LABS: Albumin 3.1 G/DL (3.4-5.0); Bilirubin,Total 0.6 MG/DL (0.2-1.0); Calcium 9.1 MG/DL (8.5-10.1); Osmolality,Calculated 297.4 MOS/KG (273-304); Total Protein 8.2 G/DL (6.4-8.3)
[2019-02-22 05:10] LABS: Prealbumin 18.1 MG/DL (20-40)
[2019-02-22] MEDS: methylPREDNISolone SOD SUC 40 MG/1 ML VIAL IV SCH ×3 (05:44→18:27)
[2019-02-22] MEDS: POTASSIUM CHLORIDE 20 MEQ/15 ML UDCUP PER TUBE PRN ×4 (05:46→13:01)
[2019-02-22] MEDS: DORNASE ALFA 2.5 MG/2.5 ML VIAL RESP TX SCH ×2 (07:34→19:04)
[2019-02-22] MEDS: BUDESONIDE 0.5 MG/2 ML NEB RESP TX SCH ×2 (07:34→19:04)
[2019-02-22] MEDS: ALBUMIN 25% 25 GM in PREMIX 1 EACH IV SCH ×3 (07:43→23:04)
[2019-02-22] MEDS: LOSARTAN 50 MG TABLET PO SCH (08:17)
[2019-02-22] MEDS: CLOPIDOGREL 75 MG TABLET PO SCH (08:17)
[2019-02-22] MEDS: carvediloL 3.125 MG TABLET PO SCH ×2 (08:17→20:04)
[2019-02-22] MEDS: SPIRONOLACTONE 25 MG TABLET PO SCH (08:18)
[2019-02-22] MEDS: ASPIRIN CHEW 81 MG TABLET PO SCH (08:18)
[2019-02-22] MEDS: QUEtiapine 25 MG TABLET PO SCH ×3 (08:18→20:04)
[2019-02-22] MEDS: MULTIVITAMIN LIQUID (CENTRUM) 60 ML BOTTLE PO SCH (08:19)
[2019-02-22] MEDS: PANTOPRAZOLE 40 MG VIAL IV SCH (08:20)
[2019-02-22] MEDS: GABAPENTIN 50 MG/ML 30 ML/BOTTLE PO SCH ×3 (08:20→20:04)
[2019-02-22] MEDS: POTASSIUM CHLORIDE RIDER 10 MEQ in PREMIX 1 EACH IV SCH ×3 (09:00→11:31)
[2019-02-22] MEDS ORDERED: QUEtiapine 25 MG TABLET PO ONE (09:12)
[2019-02-22] MEDS: LINEZOLID INJ 600 MG in PREMIX 1 EACH IV SCH ×2 (09:24→20:04)
[2019-02-22] MEDS: DESITIN 4OZ/NYSTATIN 15 GRAM MIXTURE PASTE TOP SCH ×3 (10:20→20:05)
[2019-02-22] MEDS: SODIUM CHLORIDE 0.9% 1,000 ML IV SCH (11:31)
[2019-02-22] MEDS: fentaNYL INJ 2,500 MCG in SODIUM CHLORIDE 0.9% 450 ML IV PRN (12:46)
[2019-02-22] MEDS: LACTULOSE 20 GM/30 ML UDCUP PO PRN (13:01)
[2019-02-22] MEDS ORDERED: GLUCAGON 1 MG VIAL IM PRN (14:43)
[2019-02-22] MEDS ORDERED: DEXTROSE 50% 25 GM/50 ML VIAL IV PRN (14:43)
[2019-02-22] MEDS: ROSUVASTATIN 20 MG TABLET PO SCH (20:04)
[2019-02-22] MEDS: SERTRALINE 25 MG TABLET PO SCH (20:04)
[2019-02-23] MEDS: methylPREDNISolone SOD SUC 40 MG/1 ML VIAL IV SCH ×4 (00:03→18:00)
[2019-02-23] MEDS: DEXMEDETOMIDINE 400 MCG in SODIUM CHLORIDE 0.9% 96 ML IV PRN ×4 (00:30→13:59)
[2019-02-23] MEDS: FUROSEMIDE 40 MG/4 ML VIAL IV SCH ×3 (02:11→18:00)
[2019-02-23 05:03] LABS: ABG Base Excess 10.6 MMOL/L (-2.5-2.5); ABG HCO3 35.5 MMOL/L (20-26); ABG Oxygen Saturation 98.2 % (95-100); ABG PCO2 49.7 MM HG (35-48); ABG PH 7.472 (7.35-7.45); ABG PO2 117.2 MM HG (80-95)
[2019-02-23 05:08] LABS: Basophils % 0.1 % (0.0-0.8); Hematocrit 29.9 VOL% (42.0-52.0); Hemoglobin 9.2 GM/DL (14.0-18.0); Immature Granulocytes % 0.4 %; Immature Granulocytes Absolute 0.06 #; Lymphocytes # 1.3 10*3/uL (1.4-4.0); Lymphocytes % 9.2 % (21.2-54.2); Mean Corpuscular HGB Conc 30.8 GM/DL (32-36); Mean Corpuscular Volume 83.3 FL (87-102); Monocytes % 7.5 % (1.7-12.7); Neutrophils % 82.8 % (38.7-73.9); Platelet Count 277 T/CUMM (130-400); Red Blood Count 3.59 MC/CUMM (3.8-5.5); Red Cell Distribution Width 14.7 % (9.3-17.3); White Blood Count 14.1 T/CUMM (4-12)
[2019-02-23 05:26] LABS: Albumin 3.6 G/DL (3.4-5.0); Bilirubin,Total 0.6 MG/DL (0.2-1.0); Calcium 9.4 MG/DL (8.5-10.1); Osmolality,Calculated 300.7 MOS/KG (273-304); Total Protein 8.4 G/DL (6.4-8.3)
[2019-02-23] MEDS: POTASSIUM CHLORIDE 20 MEQ/15 ML UDCUP PER TUBE PRN (05:33)
[2019-02-23] MEDS: ALBUMIN 25% 25 GM in PREMIX 1 EACH IV SCH ×2 (06:08→15:59)
[2019-02-23] MEDS: BUDESONIDE 0.5 MG/2 ML NEB RESP TX SCH ×2 (07:32→20:05)
[2019-02-23] MEDS: DORNASE ALFA 2.5 MG/2.5 ML VIAL RESP TX SCH ×2 (07:36→20:48)
[2019-02-23] MEDS: ASPIRIN CHEW 81 MG TABLET PO SCH (08:55)
[2019-02-23] MEDS: LOSARTAN 50 MG TABLET PO SCH (08:56)
[2019-02-23] MEDS: CLOPIDOGREL 75 MG TABLET PO SCH (08:56)
[2019-02-23] MEDS: SPIRONOLACTONE 25 MG TABLET PO SCH (08:56)
[2019-02-23] MEDS: QUEtiapine 25 MG TABLET PO SCH ×2 (08:56→20:08)
[2019-02-23] MEDS: MULTIVITAMIN LIQUID (CENTRUM) 60 ML BOTTLE PO SCH (08:57)
[2019-02-23] MEDS: GABAPENTIN 50 MG/ML 30 ML/BOTTLE PO SCH ×3 (08:57→20:10)
[2019-02-23] MEDS: PANTOPRAZOLE 40 MG VIAL IV SCH (08:57)
[2019-02-23] MEDS: carvediloL 3.125 MG TABLET PO SCH ×2 (08:57→20:08)
[2019-02-23] MEDS: DESITIN 4OZ/NYSTATIN 15 GRAM MIXTURE PASTE TOP SCH ×2 (08:58→20:10)
[2019-02-23] MEDS: LINEZOLID INJ 600 MG in PREMIX 1 EACH IV SCH (09:32)
[2019-02-23] MEDS: SODIUM CHLORIDE 0.9% 1,000 ML IV SCH (11:58)
[2019-02-23] MEDS: INSULIN REGULAR DRIP 100 ML IV PRN (12:28)
[2019-02-23 14:37] LABS: ABG Base Excess 11.2 MMOL/L (-2.5-2.5); ABG Oxygen Saturation 98.9 % (95-100); ABG PH 7.446 (7.35-7.45); ABG TCO2 33.9 MMOL/L (23-27)
[2019-02-23 16:59] LABS: ABG Base Excess 10.4 MMOL/L (-2.5-2.5); ABG HCO3 34.2 MMOL/L (20-26); ABG Oxygen Saturation 96.7 % (95-100); ABG PCO2 46.5 MM HG (35-48); ABG PH 7.487 (7.35-7.45); ABG PO2 75.7 MM HG (80-95); ABG TCO2 32.2 MMOL/L (23-27)
[2019-02-23] MEDS: ROSUVASTATIN 20 MG TABLET PO SCH (20:08)
[2019-02-23] MEDS: SERTRALINE 25 MG TABLET PO SCH (20:09)
[2019-02-23] MEDS: ONDANSETRON 4 MG/2 ML VIAL IV PRN (21:14)
[2019-02-24] MEDS: ALBUMIN 25% 25 GM in PREMIX 1 EACH IV SCH ×4 (00:46→23:29)
[2019-02-24] MEDS: methylPREDNISolone SOD SUC 40 MG/1 ML VIAL IV SCH ×4 (00:46→23:27)
[2019-02-24] MEDS: FUROSEMIDE 40 MG/4 ML VIAL IV SCH ×3 (03:30→17:30)
[2019-02-24 04:39] LABS: ABG Base Excess 10.9 MMOL/L (-2.5-2.5); ABG HCO3 34.7 MMOL/L (20-26); ABG Oxygen Saturation 99.4 % (95-100); ABG PCO2 48.6 MM HG (35-48); ABG PH 7.478 (7.35-7.45); ABG TCO2 32.8 MMOL/L (23-27)
[2019-02-24 04:51] LABS: Basophils % 0.1 % (0.0-0.8); Hematocrit 30.8 VOL% (42.0-52.0); Hemoglobin 9.4 GM/DL (14.0-18.0); Immature Granulocytes % 0.6 %; Immature Granulocytes Absolute 0.09 #; Lymphocytes # 1.1 10*3/uL (1.4-4.0); Mean Corpuscular HGB Conc 30.5 GM/DL (32-36); Mean Corpuscular Volume 83.2 FL (87-102); Mean Platelet Volume 12.5 FL (9.6-12.0); Monocytes % 8.7 % (1.7-12.7); Neutrophils % 83.6 % (38.7-73.9); Platelet Count 290 T/CUMM (130-400); Red Cell Distribution Width 14.9 % (9.3-17.3); White Blood Count 15.5 T/CUMM (4-12)
[2019-02-24] MEDS: DORNASE ALFA 2.5 MG/2.5 ML VIAL RESP TX SCH ×2 (07:43→19:33)
[2019-02-24] MEDS: BUDESONIDE 0.5 MG/2 ML NEB RESP TX SCH ×2 (07:43→19:33)
[2019-02-24] MEDS: PANTOPRAZOLE 40 MG VIAL IV SCH (08:09)
[2019-02-24] MEDS: MULTIVITAMIN LIQUID (CENTRUM) 60 ML BOTTLE PO SCH (08:10)
[2019-02-24] MEDS: LOSARTAN 50 MG TABLET PO SCH (08:10)
[2019-02-24] MEDS: GABAPENTIN 50 MG/ML 30 ML/BOTTLE PO SCH ×3 (08:10→21:26)
[2019-02-24] MEDS: CLOPIDOGREL 75 MG TABLET PO SCH (08:10)
[2019-02-24] MEDS: SPIRONOLACTONE 25 MG TABLET PO SCH (08:11)
[2019-02-24] MEDS: QUEtiapine 25 MG TABLET PO SCH ×2 (08:11→21:26)
[2019-02-24] MEDS: ASPIRIN CHEW 81 MG TABLET PO SCH (08:11)
[2019-02-24] MEDS: carvediloL 3.125 MG TABLET PO SCH ×2 (08:11→21:30)
[2019-02-24] MEDS: DESITIN 4OZ/NYSTATIN 15 GRAM MIXTURE PASTE TOP SCH ×2 (08:39→21:30)
[2019-02-24] MEDS: INSULIN GLARGINE 100 UNIT/ML SUBCUT SCH (08:39)
[2019-02-24] MEDS: INSULIN REGULAR 100 UNIT/ML SUBCUT SCH ×3 (10:35→21:30)
[2019-02-24] MEDS: hydrALAZINE 20 MG/1 ML VIAL IV PRN (13:10)
[2019-02-24] MEDS: SODIUM CHLORIDE 0.9% 1,000 ML IV SCH (13:11)
[2019-02-24] MEDS: MORPHINE 4 MG/1 ML VIAL IV PRN (13:16)
[2019-02-24] MEDS: ROSUVASTATIN 20 MG TABLET PO SCH (21:29)
[2019-02-24] MEDS: SERTRALINE 25 MG TABLET PO SCH (21:30)
[2019-02-24] MEDS: ACETAMINOPHEN 325 MG TABLET PO PRN (23:26)
[2019-02-25 03:11] LABS: Allen Test Positive
[2019-02-25 03:12] LABS: ABG Base Excess 8.4 MMOL/L (-2.5-2.5); ABG HCO3 33.5 MMOL/L (20-26); ABG Oxygen Saturation 97.6 % (95-100); ABG PCO2 48.7 MM HG (35-48); ABG PH 7.455 (7.35-7.45); ABG PO2 103.3 MM HG (80-95)
[2019-02-25] MEDS: FUROSEMIDE 40 MG/4 ML VIAL IV SCH (03:17)
[2019-02-25 05:28] LABS: Prealbumin 20.3 MG/DL (20-40)
[2019-02-25] MEDS: methylPREDNISolone SOD SUC 40 MG/1 ML VIAL IV SCH ×3 (06:13→22:48)
[2019-02-25] MEDS: ALBUMIN 25% 25 GM in PREMIX 1 EACH IV SCH ×3 (06:18→22:51)
[2019-02-25] MEDS: BUDESONIDE 0.5 MG/2 ML NEB RESP TX SCH ×2 (07:30→19:33)
[2019-02-25] MEDS: DORNASE ALFA 2.5 MG/2.5 ML VIAL RESP TX SCH ×2 (07:30→19:33)
[2019-02-25] MEDS: QUEtiapine 25 MG TABLET PO SCH (08:36)
[2019-02-25] MEDS: SPIRONOLACTONE 25 MG TABLET PO SCH (08:36)
[2019-02-25] MEDS: INSULIN GLARGINE 100 UNIT/ML SUBCUT SCH (08:37)
[2019-02-25] MEDS: LOSARTAN 50 MG TABLET PO SCH (08:37)
[2019-02-25] MEDS: INSULIN REGULAR 100 UNIT/ML SUBCUT SCH ×4 (08:37→21:18)
[2019-02-25] MEDS: CLOPIDOGREL 75 MG TABLET PO SCH (08:37)
[2019-02-25] MEDS: ASPIRIN CHEW 81 MG TABLET PO SCH (08:37)
[2019-02-25] MEDS ORDERED: carvediloL 3.125 MG TABLET ONE (08:40)
[2019-02-25] MEDS: carvediloL 3.125 MG TABLET PO SCH (08:41)
[2019-02-25] MEDS: PANTOPRAZOLE 40 MG VIAL IV SCH (08:43)
[2019-02-25] MEDS: carvediloL 6.25 MG TABLET PO SCH ×2 (08:43→21:23)
[2019-02-25] MEDS: MULTIVITAMIN LIQUID (CENTRUM) 60 ML BOTTLE PO SCH ×2 (08:43→08:53)
[2019-02-25] MEDS: GABAPENTIN 50 MG/ML 30 ML/BOTTLE PO SCH ×3 (08:53→21:23)
[2019-02-25] MEDS: DESITIN 4OZ/NYSTATIN 15 GRAM MIXTURE PASTE TOP SCH ×2 (08:53→21:23)
[2019-02-25] MEDS ORDERED: QUEtiapine 25 MG TABLET PO SCH (10:12)
[2019-02-25] MEDS: SODIUM CHLORIDE 0.9% 1,000 ML IV SCH (15:55)
[2019-02-25] MEDS: FUROSEMIDE 80 MG TABLET PO SCH (17:26)
[2019-02-25 18:08] LABS: ABG Base Excess 11.2 MMOL/L (-2.5-2.5); ABG HCO3 35.6 MMOL/L (20-26); ABG Oxygen Saturation 97.6 % (95-100); ABG PCO2 46.1 MM HG (35-48); ABG PH 7.506 (7.35-7.45); ABG PO2 95.7 MM HG (80-95); Allen Test Positive
[2019-02-25] MEDS ORDERED: METOPROLOL TARTRATE 5 MG/5 ML VIAL IV STA (18:16)
[2019-02-25] MEDS: SERTRALINE 25 MG TABLET PO SCH (21:22)
[2019-02-25] MEDS: ROSUVASTATIN 20 MG TABLET PO SCH (21:22)
[2019-02-26 05:16] LABS: Basophils % 0.1 % (0.0-0.8); Hematocrit 35.7 VOL% (42.0-52.0); Hemoglobin 10.9 GM/DL (14.0-18.0); Immature Granulocytes Absolute 0.19 #; Lymphocytes # 1.4 10*3/uL (1.4-4.0); Lymphocytes % 7.2 % (21.2-54.2); Mean Corpuscular HGB Conc 30.5 GM/DL (32-36); Mean Corpuscular Volume 84.2 FL (87-102); Mean Platelet Volume 11.7 FL (9.6-12.0); Neutrophils % 82.7 % (38.7-73.9); Platelet Count 343 T/CUMM (130-400); Red Blood Count 4.24 MC/CUMM (3.8-5.5); Red Cell Distribution Width 15.1 % (9.3-17.3); White Blood Count 19.3 T/CUMM (4-12)
[2019-02-26] MEDS: SODIUM CHLORIDE 0.9% 1,000 ML IV SCH ×2 (05:18→21:19)
[2019-02-26 05:27] LABS: Osmolality,Calculated 314.1 MOS/KG (273-304)
[2019-02-26] MEDS: POTASSIUM CHLORIDE RIDER 20 MEQ in PREMIX 1 EACH IV PRN ×2 (05:42→06:39)
[2019-02-26] MEDS: methylPREDNISolone SOD SUC 40 MG/1 ML VIAL IV SCH ×2 (06:25→12:31)
[2019-02-26] MEDS: ALBUMIN 25% 25 GM in PREMIX 1 EACH IV SCH (06:27)
[2019-02-26] MEDS: BUDESONIDE 0.5 MG/2 ML NEB RESP TX SCH ×2 (07:08→19:06)
[2019-02-26] MEDS: DORNASE ALFA 2.5 MG/2.5 ML VIAL RESP TX SCH ×2 (07:18→19:06)
[2019-02-26] MEDS: LOSARTAN 50 MG TABLET PO SCH (08:35)
[2019-02-26] MEDS: CLOPIDOGREL 75 MG TABLET PO SCH (08:36)
[2019-02-26] MEDS: ASPIRIN CHEW 81 MG TABLET PO SCH (08:37)
[2019-02-26] MEDS: SPIRONOLACTONE 25 MG TABLET PO SCH (08:38)
[2019-02-26] MEDS: FUROSEMIDE 80 MG TABLET PO SCH ×2 (08:38→17:16)
[2019-02-26] MEDS: INSULIN REGULAR 100 UNIT/ML SUBCUT SCH ×4 (08:42→21:18)
[2019-02-26] MEDS: INSULIN GLARGINE 100 UNIT/ML SUBCUT SCH (08:42)
[2019-02-26] MEDS: MULTIVITAMIN LIQUID (CENTRUM) 60 ML BOTTLE PO SCH (08:44)
[2019-02-26] MEDS: GABAPENTIN 50 MG/ML 30 ML/BOTTLE PO SCH ×3 (08:45→21:17)
[2019-02-26] MEDS: PANTOPRAZOLE 40 MG VIAL IV SCH (08:45)
[2019-02-26] MEDS ORDERED: carvediloL 12.5 MG TABLET PO SCH (09:00)
[2019-02-26] MEDS: DESITIN 4OZ/NYSTATIN 15 GRAM MIXTURE PASTE TOP SCH ×2 (12:12→21:19)
[2019-02-26] MEDS ORDERED: carvediloL 12.5 MG TABLET PO ONE (12:47)
[2019-02-26] MEDS: carvediloL 25 MG TABLET PO SCH ×2 (17:16→21:16)
[2019-02-26] MEDS: APIXABAN 5 MG TABLET PO SCH ×2 (17:16→21:17)
[2019-02-26] MEDS: ROSUVASTATIN 20 MG TABLET PO SCH (21:16)
[2019-02-26] MEDS: QUEtiapine 25 MG TABLET PO SCH (21:17)
[2019-02-26] MEDS: POTASSIUM CHLORIDE 20 MEQ TABLET PO SCH (21:18)
[2019-02-26] MEDS: SERTRALINE 25 MG TABLET PO SCH (21:29)
[2019-02-27] MEDS: methylPREDNISolone SOD SUC 40 MG/1 ML VIAL IV SCH (00:15)
[2019-02-27] MEDS: ACETAMINOPHEN 325 MG TABLET PO PRN (05:56)
[2019-02-27 06:23] LABS: Basophils % 0.2 % (0.0-0.8); Hematocrit 36.6 VOL% (42.0-52.0); Immature Granulocytes % 1.5 %; Immature Granulocytes Absolute 0.34 #; Lymphocytes # 1.6 10*3/uL (1.4-4.0); Lymphocytes % 7.3 % (21.2-54.2); Mean Corpuscular HGB Conc 30.1 GM/DL (32-36); Mean Corpuscular Volume 84.3 FL (87-102); Mean Platelet Volume 12.1 FL (9.6-12.0); Monocytes % 7.3 % (1.7-12.7); Neutrophils % 83.7 % (38.7-73.9); Platelet Count 327 T/CUMM (130-400); Red Blood Count 4.34 MC/CUMM (3.8-5.5); Red Cell Distribution Width 14.9 % (9.3-17.3); White Blood Count 22.4 T/CUMM (4-12)
[2019-02-27 06:47] LABS: Calcium 9.9 MG/DL (8.5-10.1); Osmolality,Calculated 322.4 MOS/KG (273-304)
[2019-02-27] MEDS: BUDESONIDE 0.5 MG/2 ML NEB RESP TX SCH ×2 (07:04→20:23)
[2019-02-27] MEDS: DORNASE ALFA 2.5 MG/2.5 ML VIAL RESP TX SCH ×2 (07:13→20:23)
[2019-02-27 07:46] LABS: Lymphocytes 6 % (20-55); Total Cells Counted 100
[2019-02-27 07:47] LABS: Metamyelocytes 5 %; Segmented Neutrophils 87 % (50-85)
[2019-02-27 07:48] LABS: Hypochromasia 1+; Microcytosis 1+; Stomatocytes Few
[2019-02-27 07:51] LABS: Platelet Estimate Normal
[2019-02-27] MEDS: POTASSIUM CHLORIDE 20 MEQ/15 ML UDCUP PER TUBE PRN (08:16)
[2019-02-27] MEDS: INSULIN REGULAR 100 UNIT/ML SUBCUT SCH ×4 (08:17→20:55)
[2019-02-27] MEDS: POTASSIUM CHLORIDE 20 MEQ TABLET PO SCH ×2 (08:17→20:56)
[2019-02-27] MEDS: INSULIN GLARGINE 100 UNIT/ML SUBCUT SCH (08:17)
[2019-02-27] MEDS: SPIRONOLACTONE 25 MG TABLET PO SCH (08:18)
[2019-02-27] MEDS: FUROSEMIDE 80 MG TABLET PO SCH (08:18)
[2019-02-27] MEDS: PANTOPRAZOLE 40 MG VIAL IV SCH (08:18)
[2019-02-27] MEDS: LOSARTAN 50 MG TABLET PO SCH (08:18)
[2019-02-27] MEDS: carvediloL 25 MG TABLET PO SCH ×2 (08:19→20:56)
[2019-02-27] MEDS: CLOPIDOGREL 75 MG TABLET PO SCH (08:19)
[2019-02-27] MEDS: DESITIN 4OZ/NYSTATIN 15 GRAM MIXTURE PASTE TOP SCH (08:19)
[2019-02-27] MEDS: GABAPENTIN 50 MG/ML 30 ML/BOTTLE PO SCH ×3 (08:20→20:56)
[2019-02-27] MEDS ORDERED: DIGOXIN 0.5 MG/2 ML AMP IV ONE (09:22)
[2019-02-27] MEDS ORDERED: DIGOXIN 0.5 MG/2 ML AMP IV SCH (09:30)
[2019-02-27] MEDS: MULTIVITAMIN LIQUID (CENTRUM) 60 ML BOTTLE PO SCH (09:44)
[2019-02-27] MEDS: APIXABAN 5 MG TABLET PO SCH ×2 (09:44→20:56)
[2019-02-27] MEDS: prednisoLONE 15 MG/5 ML ORAL.SYR PO SCH (15:13)
[2019-02-27] MEDS: ROSUVASTATIN 20 MG TABLET PO SCH (20:55)
[2019-02-27] MEDS: SERTRALINE 25 MG TABLET PO SCH (20:56)
[2019-02-27] MEDS: QUEtiapine 25 MG TABLET PO SCH (20:56)
[2019-02-28] MEDS: DESITIN 4OZ/NYSTATIN 15 GRAM MIXTURE PASTE TOP SCH ×3 (01:16→21:51)
[2019-02-28] MEDS: BUDESONIDE 0.5 MG/2 ML NEB RESP TX SCH ×2 (07:17→20:22)
[2019-02-28] MEDS: DORNASE ALFA 2.5 MG/2.5 ML VIAL RESP TX SCH ×2 (07:24→20:22)
[2019-02-28] MEDS: POTASSIUM CHLORIDE 20 MEQ/15 ML UDCUP PER TUBE PRN ×2 (07:51→12:39)
[2019-02-28] MEDS: INSULIN REGULAR 100 UNIT/ML SUBCUT SCH ×4 (08:07→21:53)
[2019-02-28] MEDS: SPIRONOLACTONE 25 MG TABLET PO SCH (08:39)
[2019-02-28] MEDS: APIXABAN 5 MG TABLET PO SCH ×2 (08:39→21:52)
[2019-02-28] MEDS: CLOPIDOGREL 75 MG TABLET PO SCH (08:39)
[2019-02-28] MEDS: LOSARTAN 50 MG TABLET PO SCH (08:39)
[2019-02-28] MEDS: carvediloL 25 MG TABLET PO SCH ×2 (08:39→21:53)
[2019-02-28] MEDS: POTASSIUM CHLORIDE 20 MEQ TABLET PO SCH ×2 (08:39→21:52)
[2019-02-28] MEDS: INSULIN GLARGINE 100 UNIT/ML SUBCUT SCH (08:40)
[2019-02-28] MEDS: PANTOPRAZOLE 40 MG VIAL IV SCH (08:40)
[2019-02-28] MEDS: DIGOXIN 0.5 MG/2 ML AMP IV SCH (08:41)
[2019-02-28] MEDS ORDERED: FUROSEMIDE 80 MG TABLET PO SCH (09:00)
[2019-02-28] MEDS: MULTIVITAMIN LIQUID (CENTRUM) 60 ML BOTTLE PO SCH (09:07)
[2019-02-28] MEDS: prednisoLONE 15 MG/5 ML ORAL.SYR PO SCH (09:10)
[2019-02-28] MEDS: GABAPENTIN 50 MG/ML 30 ML/BOTTLE PO SCH (09:10)
[2019-02-28 10:23] LABS: Basophils # 0.1 10*3/uL (0.0-0.2); Basophils % 0.3 % (0.0-0.8); Eosinophils # 0.2 10*3/uL (0.0-0.87); Hematocrit 37.7 VOL% (42.0-52.0); Hemoglobin 11.3 GM/DL (14.0-18.0); Immature Granulocytes % 2.9 %; Immature Granulocytes Absolute 0.67 #; Lymphocytes # 3.8 10*3/uL (1.4-4.0); Lymphocytes % 16.1 % (21.2-54.2); Mean Corpuscular Volume 85.9 FL (87-102); Mean Platelet Volume 12.3 FL (9.6-12.0); Monocytes % 9.5 % (1.7-12.7); Neutrophils % 70.2 % (38.7-73.9); Platelet Count 277 T/CUMM (130-400); Red Blood Count 4.39 MC/CUMM (3.8-5.5); Red Cell Distribution Width 15.4 % (9.3-17.3); White Blood Count 23.4 T/CUMM (4-12)
[2019-02-28 10:37] LABS: Anisocytosis 1+; Band Neutrophils 2 % (0-10); Eosinophils 1 % (0-10); Lymphocytes 21 % (20-55); Platelet Estimate Normal; Segmented Neutrophils 68 % (50-85); Total Cells Counted 100
[2019-02-28 10:42] LABS: Albumin 3.8 G/DL (3.4-5.0); Bilirubin,Total 0.9 MG/DL (0.2-1.0); Calcium 9.3 MG/DL (8.5-10.1); Osmolality,Calculated 316.1 MOS/KG (273-304); Total Protein 7.3 G/DL (6.4-8.3)
[2019-02-28] MEDS ORDERED: GLUCAGON 1 MG VIAL IM PRN (11:48)
[2019-02-28] MEDS ORDERED: DEXTROSE 10% 25 GM/250 ML BAG IV PRN (11:48)
[2019-02-28] MEDS: LACTOBACILLUS ACIDOPHILUS/BULGARICUS CHEW TABLET PO SCH ×2 (13:54→21:52)
[2019-02-28] MEDS: GABAPENTIN 300 MG CAPSULE PO SCH ×2 (14:50→21:55)
[2019-02-28] MEDS: ROSUVASTATIN 20 MG TABLET PO SCH (21:52)
[2019-02-28] MEDS: SERTRALINE 25 MG TABLET PO SCH (21:53)
[2019-03-01 06:18] LABS: Basophils # 0.1 10*3/uL (0.0-0.2); Basophils % 0.3 % (0.0-0.8); Eosinophils # 0.6 10*3/uL (0.0-0.87); Eosinophils % 2.9 % (0.00-10.9); Hematocrit 34.8 VOL% (42.0-52.0); Immature Granulocytes % 3.5 %; Immature Granulocytes Absolute 0.69 #; Lymphocytes # 4.9 10*3/uL (1.4-4.0); Lymphocytes % 25.3 % (21.2-54.2); Mean Corpuscular HGB Conc 31.6 GM/DL (32-36); Mean Corpuscular Volume 83.1 FL (87-102); Mean Platelet Volume 11.7 FL (9.6-12.0); Monocytes % 8.8 % (1.7-12.7); Neutrophils % 59.2 % (38.7-73.9); Platelet Count 258 T/CUMM (130-400); Red Blood Count 4.19 MC/CUMM (3.8-5.5); Red Cell Distribution Width 15.3 % (9.3-17.3); White Blood Count 19.5 T/CUMM (4-12)
[2019-03-01 06:46] LABS: Eosinophils 5 % (0-10); Hypochromasia 1+; Lymphocytes 22 % (20-55); Microcytosis Slight; Platelet Estimate Adequate; Segmented Neutrophils 66 % (50-85); Total Cells Counted 100
[2019-03-01 06:52] LABS: Albumin 3.2 G/DL (3.4-5.0); Bilirubin,Total 1.4 MG/DL (0.2-1.0); Calcium 9.1 MG/DL (8.5-10.1); Osmolality,Calculated 288.5 MOS/KG (273-304); Total Protein 7.4 G/DL (6.4-8.3)
[2019-03-01] MEDS: BUDESONIDE 0.5 MG/2 ML NEB RESP TX SCH ×2 (07:44→19:55)
[2019-03-01] MEDS: DORNASE ALFA 2.5 MG/2.5 ML VIAL RESP TX SCH ×2 (07:44→20:05)
[2019-03-01] MEDS: INSULIN REGULAR 100 UNIT/ML SUBCUT SCH ×3 (07:46→22:54)
[2019-03-01] MEDS: LOSARTAN 50 MG TABLET PO SCH (08:09)
[2019-03-01] MEDS: POTASSIUM CHLORIDE 20 MEQ TABLET PO SCH (08:15)
[2019-03-01] MEDS ORDERED: predniSONE 5 MG TABLET PO SCH (09:00)
[2019-03-01] MEDS: APIXABAN 5 MG TABLET PO SCH ×2 (09:05→22:53)
[2019-03-01] MEDS: MULTIVITAMIN (CENTRUM) TABLET PO SCH (09:05)
[2019-03-01] MEDS: INSULIN GLARGINE 100 UNIT/ML SUBCUT SCH (09:05)
[2019-03-01] MEDS: carvediloL 25 MG TABLET PO SCH ×2 (09:05→22:54)
[2019-03-01] MEDS: CLOPIDOGREL 75 MG TABLET PO SCH (09:05)
[2019-03-01] MEDS: GABAPENTIN 300 MG CAPSULE PO SCH ×3 (09:05→22:54)
[2019-03-01] MEDS: DESITIN 4OZ/NYSTATIN 15 GRAM MIXTURE PASTE TOP SCH ×2 (09:06→22:55)
[2019-03-01] MEDS: PANTOPRAZOLE 40 MG VIAL IV SCH (09:06)
[2019-03-01] MEDS: DIGOXIN 0.5 MG/2 ML AMP IV SCH (09:12)
[2019-03-01] MEDS: LACTOBACILLUS ACIDOPHILUS/BULGARICUS CHEW TABLET PO SCH ×2 (10:34→22:53)
[2019-03-01] MEDS: SODIUM CHLORIDE 0.9% 1,000 ML IV SCH (16:48)
[2019-03-01] MEDS: ROSUVASTATIN 20 MG TABLET PO SCH (22:53)
[2019-03-01] MEDS: ASCORBIC ACID 500 MG TABLET PO SCH (22:53)
[2019-03-01] MEDS: SERTRALINE 25 MG TABLET PO SCH (22:56)
[2019-03-02] MEDS: ACETAMINOPHEN 325 MG TABLET PO PRN ×2 (02:39→13:01)
[2019-03-02] MEDS: INSULIN REGULAR 100 UNIT/ML SUBCUT SCH ×4 (05:18→20:56)
[2019-03-02 05:20] LABS: Basophils % 0.2 % (0.0-0.8); Eosinophils # 0.3 10*3/uL (0.0-0.87); Eosinophils % 1.8 % (0.00-10.9); Hematocrit 33.9 VOL% (42.0-52.0); Hemoglobin 10.7 GM/DL (14.0-18.0); Immature Granulocytes % 3.2 %; Immature Granulocytes Absolute 0.58 #; Lymphocytes # 2.8 10*3/uL (1.4-4.0); Lymphocytes % 15.4 % (21.2-54.2); Mean Corpuscular HGB Conc 31.6 GM/DL (32-36); Mean Corpuscular Volume 80.9 FL (87-102); Mean Platelet Volume 12.6 FL (9.6-12.0); Monocytes % 8.5 % (1.7-12.7); Neutrophils % 70.9 % (38.7-73.9); Platelet Count 236 T/CUMM (130-400); Red Blood Count 4.19 MC/CUMM (3.8-5.5); Red Cell Distribution Width 15.3 % (9.3-17.3); White Blood Count 18.4 T/CUMM (4-12)
[2019-03-02 05:44] LABS: Eosinophils 1 % (0-10); Hypochromasia 1+; Lymphocytes 17 % (20-55); Segmented Neutrophils 75 % (50-85); Total Cells Counted 100
[2019-03-02 05:45] LABS: Atypical Lymphocytes Few; Microcytosis Slight; Platelet Estimate Normal
[2019-03-02 05:48] LABS: Calcium 9.1 MG/DL (8.5-10.1); Osmolality,Calculated 284.7 MOS/KG (273-304)
[2019-03-02] MEDS: BUDESONIDE 0.5 MG/2 ML NEB RESP TX SCH ×2 (07:43→19:02)
[2019-03-02] MEDS: DORNASE ALFA 2.5 MG/2.5 ML VIAL RESP TX SCH (07:49)
[2019-03-02] MEDS: ASCORBIC ACID 500 MG TABLET PO SCH ×2 (08:35→20:55)
[2019-03-02] MEDS: POTASSIUM CHLORIDE RIDER 10 MEQ in PREMIX 1 EACH IV SCH ×3 (08:35→10:42)
[2019-03-02] MEDS: APIXABAN 5 MG TABLET PO SCH ×2 (08:36→20:55)
[2019-03-02] MEDS: DIGOXIN 0.5 MG/2 ML AMP IV SCH (08:37)
[2019-03-02] MEDS: GABAPENTIN 300 MG CAPSULE PO SCH ×3 (08:37→20:55)
[2019-03-02] MEDS: carvediloL 25 MG TABLET PO SCH ×2 (08:37→20:55)
[2019-03-02] MEDS: CLOPIDOGREL 75 MG TABLET PO SCH (08:37)
[2019-03-02] MEDS: MULTIVITAMIN (CENTRUM) TABLET PO SCH (08:37)
[2019-03-02] MEDS: LACTOBACILLUS ACIDOPHILUS/BULGARICUS CHEW TABLET PO SCH ×2 (08:37→20:58)
[2019-03-02] MEDS: INSULIN GLARGINE 100 UNIT/ML SUBCUT SCH (08:38)
[2019-03-02] MEDS: PANTOPRAZOLE 40 MG VIAL IV SCH (08:38)
[2019-03-02] MEDS: DESITIN 4OZ/NYSTATIN 15 GRAM MIXTURE PASTE TOP SCH ×2 (08:38→20:58)
[2019-03-02] MEDS: DIGOXIN 0.125 MG TABLET PO SCH (13:00)
[2019-03-02] MEDS: MORPHINE 4 MG/1 ML VIAL IV PRN (17:35)
[2019-03-02] MEDS: ROSUVASTATIN 20 MG TABLET PO SCH (20:55)
[2019-03-02] MEDS: SERTRALINE 25 MG TABLET PO SCH (20:55)
[2019-03-03 05:21] LABS: Basophils % 0.1 % (0.0-0.8); Eosinophils # 0.4 10*3/uL (0.0-0.87); Eosinophils % 2.9 % (0.00-10.9); Hematocrit 32.1 VOL% (42.0-52.0); Hemoglobin 10.4 GM/DL (14.0-18.0); Immature Granulocytes % 3.6 %; Immature Granulocytes Absolute 0.55 #; Lymphocytes # 2.7 10*3/uL (1.4-4.0); Lymphocytes % 17.9 % (21.2-54.2); Mean Corpuscular HGB Conc 32.4 GM/DL (32-36); Mean Corpuscular Volume 81.7 FL (87-102); Mean Platelet Volume 11.7 FL (9.6-12.0); Monocytes % 10.7 % (1.7-12.7); Neutrophils % 64.8 % (38.7-73.9); Platelet Count 200 T/CUMM (130-400); Red Blood Count 3.93 MC/CUMM (3.8-5.5); Red Cell Distribution Width 15.4 % (9.3-17.3); White Blood Count 15.3 T/CUMM (4-12)
[2019-03-03 05:44] LABS: Calcium 8.9 MG/DL (8.5-10.1); Eosinophils 3 % (0-10); Lymphocytes 17 % (20-55); Osmolality,Calculated 282.8 MOS/KG (273-304); Segmented Neutrophils 76 % (50-85); Total Cells Counted 100
[2019-03-03 05:45] LABS: Hypochromasia 1+; Microcytosis Slight; Ovalocytes Slight; Platelet Estimate Adequate
[2019-03-03] MEDS: BUDESONIDE 0.5 MG/2 ML NEB RESP TX SCH ×2 (07:01→19:44)
[2019-03-03] MEDS: GABAPENTIN 300 MG CAPSULE PO SCH ×3 (09:45→21:19)
[2019-03-03] MEDS: ASCORBIC ACID 500 MG TABLET PO SCH ×2 (09:45→21:19)
[2019-03-03] MEDS: CLOPIDOGREL 75 MG TABLET PO SCH (09:46)
[2019-03-03] MEDS: INSULIN REGULAR 100 UNIT/ML SUBCUT SCH ×4 (09:46→21:20)
[2019-03-03] MEDS: MULTIVITAMIN (CENTRUM) TABLET PO SCH (09:46)
[2019-03-03] MEDS: PANTOPRAZOLE 40 MG VIAL IV SCH (09:46)
[2019-03-03] MEDS: APIXABAN 5 MG TABLET PO SCH ×2 (09:46→21:19)
[2019-03-03] MEDS: carvediloL 25 MG TABLET PO SCH ×2 (09:46→21:19)
[2019-03-03] MEDS: INSULIN GLARGINE 100 UNIT/ML SUBCUT SCH (09:50)
[2019-03-03] MEDS: POTASSIUM CHLORIDE RIDER 10 MEQ in PREMIX 1 EACH IV SCH ×4 (09:51→14:07)
[2019-03-03] MEDS: DESITIN 4OZ/NYSTATIN 15 GRAM MIXTURE PASTE TOP SCH ×2 (09:51→21:19)
[2019-03-03] MEDS: LACTOBACILLUS ACIDOPHILUS/BULGARICUS CHEW TABLET PO SCH ×2 (11:52→21:19)
[2019-03-03] MEDS: MORPHINE 4 MG/1 ML VIAL IV PRN (11:53)
[2019-03-03] MEDS: FUROSEMIDE 40 MG TABLET PO SCH (14:07)
[2019-03-03] MEDS: DIGOXIN 0.125 MG TABLET PO SCH (14:08)
[2019-03-03] MEDS: ACETAMINOPHEN 325 MG TABLET PO PRN (21:18)
[2019-03-03] MEDS: SERTRALINE 25 MG TABLET PO SCH (21:19)
[2019-03-03] MEDS: ROSUVASTATIN 20 MG TABLET PO SCH (21:19)
[2019-03-04 06:24] LABS: Basophils % 0.2 % (0.0-0.8); Eosinophils # 0.6 10*3/uL (0.0-0.87); Eosinophils % 3.7 % (0.00-10.9); Hematocrit 33.5 VOL% (42.0-52.0); Hemoglobin 10.6 GM/DL (14.0-18.0); Immature Granulocytes % 2.8 %; Immature Granulocytes Absolute 0.45 #; Lymphocytes # 3.2 10*3/uL (1.4-4.0); Mean Corpuscular HGB Conc 31.6 GM/DL (32-36); Mean Corpuscular Volume 80.5 FL (87-102); Mean Platelet Volume 12.7 FL (9.6-12.0); Monocytes % 10.7 % (1.7-12.7); Neutrophils % 62.6 % (38.7-73.9); Platelet Count 237 T/CUMM (130-400); Red Blood Count 4.16 MC/CUMM (3.8-5.5); Red Cell Distribution Width 15.8 % (9.3-17.3); White Blood Count 16.2 T/CUMM (4-12)
[2019-03-04 06:51] LABS: Calcium 9.2 MG/DL (8.5-10.1); Osmolality,Calculated 278.2 MOS/KG (273-304)
[2019-03-04] MEDS: BUDESONIDE 0.5 MG/2 ML NEB RESP TX SCH ×2 (07:01→20:21)
[2019-03-04] MEDS ORDERED: POTASSIUM CHLORIDE RIDER 10 MEQ in PREMIX 1 EACH IV SCH (08:00)
[2019-03-04] MEDS: INSULIN REGULAR 100 UNIT/ML SUBCUT SCH ×4 (08:10→21:55)
[2019-03-04] MEDS: FUROSEMIDE 40 MG TABLET PO SCH (09:16)
[2019-03-04] MEDS: CLOPIDOGREL 75 MG TABLET PO SCH (09:16)
[2019-03-04] MEDS: APIXABAN 5 MG TABLET PO SCH ×2 (09:16→21:54)
[2019-03-04] MEDS: POTASSIUM CHLORIDE 20 MEQ TABLET PO SCH ×2 (09:16→21:54)
[2019-03-04] MEDS: PANTOPRAZOLE 40 MG VIAL IV SCH (09:16)
[2019-03-04] MEDS: ASCORBIC ACID 500 MG TABLET PO SCH ×2 (09:16→21:53)
[2019-03-04] MEDS: carvediloL 25 MG TABLET PO SCH ×2 (09:16→21:53)
[2019-03-04] MEDS: GABAPENTIN 300 MG CAPSULE PO SCH ×3 (09:16→21:54)
[2019-03-04] MEDS: LACTOBACILLUS ACIDOPHILUS/BULGARICUS CHEW TABLET PO SCH ×2 (09:19→22:06)
[2019-03-04] MEDS: INSULIN GLARGINE 100 UNIT/ML SUBCUT SCH (09:19)
[2019-03-04] MEDS: MULTIVITAMIN (CENTRUM) TABLET PO SCH (09:19)
[2019-03-04] MEDS: DESITIN 4OZ/NYSTATIN 15 GRAM MIXTURE PASTE TOP SCH ×2 (09:19→21:56)
[2019-03-04] MEDS: DIGOXIN 0.125 MG TABLET PO SCH (14:00)
[2019-03-04] MEDS: ROSUVASTATIN 20 MG TABLET PO SCH (21:53)
[2019-03-04] MEDS: SERTRALINE 25 MG TABLET PO SCH (22:06)
[2019-03-05 06:01] LABS: Basophils % 0.2 % (0.0-0.8); Eosinophils # 0.5 10*3/uL (0.0-0.87); Eosinophils % 3.2 % (0.00-10.9); Hematocrit 31.8 VOL% (42.0-52.0); Hemoglobin 10.2 GM/DL (14.0-18.0); Immature Granulocytes % 2.3 %; Immature Granulocytes Absolute 0.36 #; Lymphocytes # 3.1 10*3/uL (1.4-4.0); Lymphocytes % 19.8 % (21.2-54.2); Mean Corpuscular HGB Conc 32.1 GM/DL (32-36); Mean Corpuscular Volume 81.3 FL (87-102); Mean Platelet Volume 12.5 FL (9.6-12.0); Monocytes % 11.9 % (1.7-12.7); Neutrophils % 62.6 % (38.7-73.9); Platelet Count 231 T/CUMM (130-400); Red Blood Count 3.91 MC/CUMM (3.8-5.5); Red Cell Distribution Width 16.3 % (9.3-17.3); White Blood Count 15.7 T/CUMM (4-12)
[2019-03-05 06:23] LABS: Calcium 9.2 MG/DL (8.5-10.1); Osmolality,Calculated 282.8 MOS/KG (273-304)
[2019-03-05] MEDS: BUDESONIDE 0.5 MG/2 ML NEB RESP TX SCH ×2 (07:47→18:50)
[2019-03-05] MEDS: INSULIN REGULAR 100 UNIT/ML SUBCUT SCH ×4 (08:02→20:46)
[2019-03-05] MEDS: INSULIN GLARGINE 100 UNIT/ML SUBCUT SCH (08:28)
[2019-03-05] MEDS: PANTOPRAZOLE 40 MG VIAL IV SCH (08:28)
[2019-03-05] MEDS: POTASSIUM CHLORIDE 20 MEQ TABLET PO SCH ×2 (08:29→20:45)
[2019-03-05] MEDS: GABAPENTIN 300 MG CAPSULE PO SCH ×3 (08:29→20:45)
[2019-03-05] MEDS: MULTIVITAMIN (CENTRUM) TABLET PO SCH (08:29)
[2019-03-05] MEDS: APIXABAN 5 MG TABLET PO SCH ×2 (08:29→20:45)
[2019-03-05] MEDS: ASCORBIC ACID 500 MG TABLET PO SCH ×2 (08:30→20:44)
[2019-03-05] MEDS: LACTOBACILLUS ACIDOPHILUS/BULGARICUS CHEW TABLET PO SCH ×2 (08:30→20:43)
[2019-03-05] MEDS: carvediloL 25 MG TABLET PO SCH ×2 (08:30→20:46)
[2019-03-05] MEDS: FUROSEMIDE 40 MG TABLET PO SCH (08:30)
[2019-03-05] MEDS: DESITIN 4OZ/NYSTATIN 15 GRAM MIXTURE PASTE TOP SCH ×2 (08:30→20:46)
[2019-03-05] MEDS: CLOPIDOGREL 75 MG TABLET PO SCH (08:31)
[2019-03-05] MEDS: DIGOXIN 0.125 MG TABLET PO SCH (12:50)
[2019-03-05] MEDS: ONDANSETRON 4 MG/2 ML VIAL IV PRN (15:03)
[2019-03-05] MEDS: SERTRALINE 25 MG TABLET PO SCH (20:44)
[2019-03-05] MEDS: ROSUVASTATIN 20 MG TABLET PO SCH (20:44)
[2019-03-06 06:07] LABS: Basophils % 0.2 % (0.0-0.8); Eosinophils # 0.3 10*3/uL (0.0-0.87); Eosinophils % 2.1 % (0.00-10.9); Hematocrit 31.1 VOL% (42.0-52.0); Hemoglobin 9.8 GM/DL (14.0-18.0); Immature Granulocytes % 1.8 %; Immature Granulocytes Absolute 0.29 #; Lymphocytes # 2.1 10*3/uL (1.4-4.0); Lymphocytes % 13.2 % (21.2-54.2); Mean Corpuscular HGB Conc 31.5 GM/DL (32-36); Mean Corpuscular Volume 82.9 FL (87-102); Mean Platelet Volume 11.3 FL (9.6-12.0); Monocytes % 9.9 % (1.7-12.7); Neutrophils % 72.8 % (38.7-73.9); Platelet Count 215 T/CUMM (130-400); Red Blood Count 3.75 MC/CUMM (3.8-5.5)
[2019-03-06 06:41] LABS: Albumin 2.8 G/DL (3.4-5.0); Bilirubin,Total 0.7 MG/DL (0.2-1.0); Calcium 9.3 MG/DL (8.5-10.1); Osmolality,Calculated 278.4 MOS/KG (273-304)
[2019-03-06] MEDS: BUDESONIDE 0.5 MG/2 ML NEB RESP TX SCH ×2 (08:05→19:05)
[2019-03-06] MEDS: PANTOPRAZOLE 40 MG VIAL IV SCH (09:02)
[2019-03-06] MEDS: INSULIN REGULAR 100 UNIT/ML SUBCUT SCH ×4 (09:03→21:44)
[2019-03-06] MEDS: INSULIN GLARGINE 100 UNIT/ML SUBCUT SCH (09:03)
[2019-03-06] MEDS: MULTIVITAMIN (CENTRUM) TABLET PO SCH (09:04)
[2019-03-06] MEDS: POTASSIUM CHLORIDE 20 MEQ TABLET PO SCH ×2 (09:04→21:40)
[2019-03-06] MEDS: LACTOBACILLUS ACIDOPHILUS/BULGARICUS CHEW TABLET PO SCH ×2 (09:04→21:46)
[2019-03-06] MEDS: CLOPIDOGREL 75 MG TABLET PO SCH (09:05)
[2019-03-06] MEDS: DESITIN 4OZ/NYSTATIN 15 GRAM MIXTURE PASTE TOP SCH ×2 (09:05→21:46)
[2019-03-06] MEDS: FUROSEMIDE 40 MG TABLET PO SCH (09:05)
[2019-03-06] MEDS: ASCORBIC ACID 500 MG TABLET PO SCH ×2 (09:05→21:40)
[2019-03-06] MEDS: GABAPENTIN 300 MG CAPSULE PO SCH ×3 (09:06→21:41)
[2019-03-06] MEDS: APIXABAN 5 MG TABLET PO SCH ×2 (09:06→21:43)
[2019-03-06] MEDS: carvediloL 25 MG TABLET PO SCH ×2 (09:06→21:43)
[2019-03-06] MEDS: DIGOXIN 0.125 MG TABLET PO SCH (13:21)
[2019-03-06] MEDS: ROSUVASTATIN 20 MG TABLET PO SCH (21:42)
[2019-03-06] MEDS: SERTRALINE 25 MG TABLET PO SCH (21:43)
[2019-03-07 07:09] LABS: Basophils % 0.2 % (0.0-0.8); Eosinophils # 0.3 10*3/uL (0.0-0.87); Eosinophils % 1.7 % (0.00-10.9); Hemoglobin 10.2 GM/DL (14.0-18.0); Immature Granulocytes % 1.2 %; Immature Granulocytes Absolute 0.18 #; Lymphocytes # 2.5 10*3/uL (1.4-4.0); Mean Corpuscular HGB Conc 30.9 GM/DL (32-36); Mean Corpuscular Volume 84.4 FL (87-102); Mean Platelet Volume 12.1 FL (9.6-12.0); Monocytes % 9.4 % (1.7-12.7); Neutrophils % 70.5 % (38.7-73.9); Platelet Count 237 T/CUMM (130-400); Red Blood Count 3.91 MC/CUMM (3.8-5.5); Red Cell Distribution Width 17.2 % (9.3-17.3)
[2019-03-07] MEDS: BUDESONIDE 0.5 MG/2 ML NEB RESP TX SCH ×2 (08:02→21:02)
[2019-03-07] MEDS: PANTOPRAZOLE 40 MG VIAL IV SCH (08:34)
[2019-03-07] MEDS: POTASSIUM CHLORIDE 20 MEQ TABLET PO SCH ×2 (08:35→22:35)
[2019-03-07] MEDS: INSULIN REGULAR 100 UNIT/ML SUBCUT SCH ×4 (08:35→22:34)
[2019-03-07] MEDS: INSULIN GLARGINE 100 UNIT/ML SUBCUT SCH (08:35)
[2019-03-07] MEDS: CLOPIDOGREL 75 MG TABLET PO SCH (08:36)
[2019-03-07] MEDS: ASCORBIC ACID 500 MG TABLET PO SCH ×2 (08:36→22:35)
[2019-03-07] MEDS: MULTIVITAMIN (CENTRUM) TABLET PO SCH (08:36)
[2019-03-07] MEDS: carvediloL 25 MG TABLET PO SCH ×2 (08:36→22:36)
[2019-03-07] MEDS: APIXABAN 5 MG TABLET PO SCH ×2 (08:36→22:36)
[2019-03-07] MEDS: LACTOBACILLUS ACIDOPHILUS/BULGARICUS CHEW TABLET PO SCH ×2 (08:37→22:35)
[2019-03-07] MEDS: GABAPENTIN 300 MG CAPSULE PO SCH ×3 (08:37→22:36)
[2019-03-07] MEDS: DESITIN 4OZ/NYSTATIN 15 GRAM MIXTURE PASTE TOP SCH ×2 (08:37→21:06)
[2019-03-07] MEDS: FUROSEMIDE 40 MG TABLET PO SCH (08:37)
[2019-03-07] MEDS: DIGOXIN 0.125 MG TABLET PO SCH (13:00)
[2019-03-07] MEDS: SERTRALINE 25 MG TABLET PO SCH (22:35)
[2019-03-07] MEDS: ROSUVASTATIN 20 MG TABLET PO SCH (22:35)
[2019-03-08] MEDS: BUDESONIDE 0.5 MG/2 ML NEB RESP TX SCH ×2 (07:00→19:17)
[2019-03-08] MEDS: PANTOPRAZOLE 40 MG VIAL IV SCH (08:41)
[2019-03-08] MEDS: INSULIN REGULAR 100 UNIT/ML SUBCUT SCH ×4 (08:41→22:06)
[2019-03-08] MEDS: INSULIN GLARGINE 100 UNIT/ML SUBCUT SCH (08:42)
[2019-03-08] MEDS: CLOPIDOGREL 75 MG TABLET PO SCH (08:42)
[2019-03-08] MEDS: POTASSIUM CHLORIDE 20 MEQ TABLET PO SCH ×2 (08:42→22:02)
[2019-03-08] MEDS: GABAPENTIN 300 MG CAPSULE PO SCH ×3 (08:42→21:55)
[2019-03-08] MEDS: APIXABAN 5 MG TABLET PO SCH ×2 (08:42→21:56)
[2019-03-08] MEDS: ASCORBIC ACID 500 MG TABLET PO SCH ×2 (08:42→22:00)
[2019-03-08] MEDS: carvediloL 25 MG TABLET PO SCH ×2 (08:42→21:59)
[2019-03-08] MEDS: MULTIVITAMIN (CENTRUM) TABLET PO SCH (08:43)
[2019-03-08] MEDS: FUROSEMIDE 40 MG TABLET PO SCH (08:43)
[2019-03-08] MEDS: DESITIN 4OZ/NYSTATIN 15 GRAM MIXTURE PASTE TOP SCH ×2 (08:43→22:09)
[2019-03-08] MEDS: LACTOBACILLUS ACIDOPHILUS/BULGARICUS CHEW TABLET PO SCH ×2 (09:44→21:59)
[2019-03-08] MEDS: DIGOXIN 0.125 MG TABLET PO SCH (12:43)
[2019-03-08] MEDS: SERTRALINE 25 MG TABLET PO SCH (21:56)
[2019-03-08] MEDS: ROSUVASTATIN 20 MG TABLET PO SCH (21:58)
[2019-03-09 06:07] LABS: Basophils % 0.2 % (0.0-0.8); Eosinophils # 0.3 10*3/uL (0.0-0.87); Eosinophils % 2.9 % (0.00-10.9); Hematocrit 30.3 VOL% (42.0-52.0); Hemoglobin 9.6 GM/DL (14.0-18.0); Immature Granulocytes % 0.8 %; Immature Granulocytes Absolute 0.08 #; Lymphocytes # 2.4 10*3/uL (1.4-4.0); Lymphocytes % 22.8 % (21.2-54.2); Mean Corpuscular HGB Conc 31.7 GM/DL (32-36); Mean Corpuscular Volume 83.7 FL (87-102); Mean Platelet Volume 11.1 FL (9.6-12.0); Monocytes % 9.4 % (1.7-12.7); Neutrophils % 63.9 % (38.7-73.9); Platelet Count 224 T/CUMM (130-400); Red Blood Count 3.62 MC/CUMM (3.8-5.5); Red Cell Distribution Width 17.5 % (9.3-17.3); White Blood Count 10.3 T/CUMM (4-12)
[2019-03-09 06:41] LABS: Albumin 2.7 G/DL (3.4-5.0); Calcium 9.1 MG/DL (8.5-10.1); Calcium 9.4 MG/DL (8.5-10.1); Osmolality,Calculated 277.2 MOS/KG (273-304); Osmolality,Calculated 279.1 MOS/KG (273-304); Total Protein 7.4 G/DL (6.4-8.3)
[2019-03-09] MEDS: BUDESONIDE 0.5 MG/2 ML NEB RESP TX SCH ×2 (07:38→21:52)
[2019-03-09] MEDS: INSULIN REGULAR 100 UNIT/ML SUBCUT SCH ×4 (09:02→23:05)
[2019-03-09] MEDS: MULTIVITAMIN (CENTRUM) TABLET PO SCH (09:03)
[2019-03-09] MEDS: carvediloL 25 MG TABLET PO SCH ×2 (09:03→21:49)
[2019-03-09] MEDS: FUROSEMIDE 40 MG TABLET PO SCH (09:04)
[2019-03-09] MEDS: INSULIN GLARGINE 100 UNIT/ML SUBCUT SCH (09:04)
[2019-03-09] MEDS: LACTOBACILLUS ACIDOPHILUS/BULGARICUS CHEW TABLET PO SCH ×2 (09:04→21:49)
[2019-03-09] MEDS: APIXABAN 5 MG TABLET PO SCH ×2 (09:04→21:49)
[2019-03-09] MEDS: POTASSIUM CHLORIDE 20 MEQ TABLET PO SCH ×2 (09:04→21:52)
[2019-03-09] MEDS: ASCORBIC ACID 500 MG TABLET PO SCH ×2 (09:05→21:51)
[2019-03-09] MEDS: PANTOPRAZOLE 40 MG VIAL IV SCH (09:05)
[2019-03-09] MEDS: GABAPENTIN 300 MG CAPSULE PO SCH ×3 (09:05→21:49)
[2019-03-09] MEDS: DESITIN 4OZ/NYSTATIN 15 GRAM MIXTURE PASTE TOP SCH ×2 (09:05→23:00)
[2019-03-09] MEDS: CLOPIDOGREL 75 MG TABLET PO SCH (09:05)
[2019-03-09] MEDS: DIGOXIN 0.125 MG TABLET PO SCH (13:27)
[2019-03-09] MEDS: ACETAMINOPHEN 325 MG TABLET PO PRN (13:50)
[2019-03-09] MEDS: SERTRALINE 25 MG TABLET PO SCH (21:48)
[2019-03-09] MEDS: ROSUVASTATIN 20 MG TABLET PO SCH (21:48)
[2019-03-10 06:28] LABS: Basophils % 0.3 % (0.0-0.8); Eosinophils # 0.3 10*3/uL (0.0-0.87); Eosinophils % 3.3 % (0.00-10.9); Hematocrit 30.9 VOL% (42.0-52.0); Hemoglobin 9.6 GM/DL (14.0-18.0); Immature Granulocytes % 0.8 %; Immature Granulocytes Absolute 0.08 #; Lymphocytes # 2.2 10*3/uL (1.4-4.0); Lymphocytes % 22.6 % (21.2-54.2); Mean Corpuscular HGB Conc 31.1 GM/DL (32-36); Mean Corpuscular Volume 84.2 FL (87-102); Platelet Count 221 T/CUMM (130-400); Red Blood Count 3.67 MC/CUMM (3.8-5.5); Red Cell Distribution Width 18.1 % (9.3-17.3); White Blood Count 9.8 T/CUMM (4-12)
[2019-03-10] MEDS: BUDESONIDE 0.5 MG/2 ML NEB RESP TX SCH ×2 (07:26→19:18)
[2019-03-10] MEDS ORDERED: SKIN HEALING OINT (AQUAPHOR) 50 GM TUBE TOP PRN (08:43)
[2019-03-10] MEDS: INSULIN REGULAR 100 UNIT/ML SUBCUT SCH ×4 (10:03→21:11)
[2019-03-10] MEDS: MULTIVITAMIN (CENTRUM) TABLET PO SCH (10:03)
[2019-03-10] MEDS: POTASSIUM CHLORIDE 20 MEQ TABLET PO SCH ×2 (10:04→21:09)
[2019-03-10] MEDS: INSULIN GLARGINE 100 UNIT/ML SUBCUT SCH (10:04)
[2019-03-10] MEDS: APIXABAN 5 MG TABLET PO SCH ×2 (10:04→21:11)
[2019-03-10] MEDS: carvediloL 25 MG TABLET PO SCH ×2 (10:04→21:10)
[2019-03-10] MEDS: FUROSEMIDE 40 MG TABLET PO SCH (10:05)
[2019-03-10] MEDS: CLOPIDOGREL 75 MG TABLET PO SCH (10:05)
[2019-03-10] MEDS: GABAPENTIN 300 MG CAPSULE PO SCH ×3 (10:05→21:10)
[2019-03-10] MEDS: DESITIN 4OZ/NYSTATIN 15 GRAM MIXTURE PASTE TOP SCH ×2 (10:06→21:13)
[2019-03-10] MEDS: ASCORBIC ACID 500 MG TABLET PO SCH ×2 (10:06→21:10)
[2019-03-10] MEDS: PANTOPRAZOLE 40 MG VIAL IV SCH (10:08)
[2019-03-10] MEDS: LACTOBACILLUS ACIDOPHILUS/BULGARICUS CHEW TABLET PO SCH ×2 (10:32→21:13)
[2019-03-10] MEDS: DIGOXIN 0.125 MG TABLET PO SCH (13:17)
[2019-03-10] MEDS: LACTULOSE 20 GM/30 ML UDCUP PO PRN (16:52)
[2019-03-10] MEDS: ROSUVASTATIN 20 MG TABLET PO SCH (21:10)
[2019-03-10] MEDS: SERTRALINE 25 MG TABLET PO SCH (21:10)
[2019-03-11 04:52] LABS: Basophils % 0.4 % (0.0-0.8); Eosinophils # 0.3 10*3/uL (0.0-0.87); Eosinophils % 3.2 % (0.00-10.9); Hematocrit 31.8 VOL% (42.0-52.0); Hemoglobin 9.8 GM/DL (14.0-18.0); Immature Granulocytes % 0.6 %; Immature Granulocytes Absolute 0.06 #; Lymphocytes # 2.6 10*3/uL (1.4-4.0); Lymphocytes % 27.9 % (21.2-54.2); Mean Corpuscular HGB Conc 30.8 GM/DL (32-36); Mean Corpuscular Volume 84.8 FL (87-102); Mean Platelet Volume 10.7 FL (9.6-12.0); Monocytes % 9.9 % (1.7-12.7); Platelet Count 231 T/CUMM (130-400); Red Blood Count 3.75 MC/CUMM (3.8-5.5); Red Cell Distribution Width 18.4 % (9.3-17.3); White Blood Count 9.4 T/CUMM (4-12)
[2019-03-11 05:15] LABS: Calcium 9.4 MG/DL (8.5-10.1); Osmolality,Calculated 273.8 MOS/KG (273-304)
[2019-03-11] MEDS: BUDESONIDE 0.5 MG/2 ML NEB RESP TX SCH (07:53)
[2019-03-11] MEDS: INSULIN REGULAR 100 UNIT/ML SUBCUT SCH ×3 (10:13→17:25)
[2019-03-11] MEDS: MULTIVITAMIN (CENTRUM) TABLET PO SCH (10:13)
[2019-03-11] MEDS: POTASSIUM CHLORIDE 20 MEQ TABLET PO SCH (10:14)
[2019-03-11] MEDS: APIXABAN 5 MG TABLET PO SCH (10:14)
[2019-03-11] MEDS: INSULIN GLARGINE 100 UNIT/ML SUBCUT SCH (10:14)
[2019-03-11] MEDS: carvediloL 25 MG TABLET PO SCH (10:14)
[2019-03-11] MEDS: GABAPENTIN 300 MG CAPSULE PO SCH ×2 (10:15→15:06)
[2019-03-11] MEDS: CLOPIDOGREL 75 MG TABLET PO SCH (10:15)
[2019-03-11] MEDS: DESITIN 4OZ/NYSTATIN 15 GRAM MIXTURE PASTE TOP SCH (10:16)
[2019-03-11] MEDS: ASCORBIC ACID 500 MG TABLET PO SCH (10:16)
[2019-03-11] MEDS: FUROSEMIDE 40 MG TABLET PO SCH (10:16)
[2019-03-11] MEDS: LACTOBACILLUS ACIDOPHILUS/BULGARICUS CHEW TABLET PO SCH (10:18)
[2019-03-11] MEDS: PANTOPRAZOLE 40 MG VIAL IV SCH (10:22)
[2019-03-11] MEDS: DIGOXIN 0.125 MG TABLET PO SCH (15:06)
[2019-03-11 17:16] VITALS: BP 103/58
== END 2019-03-11 17:49 | disposition swing bed (61) | DRG 870 ==
LOC: N.ED 01:13 → N.EDINP 03:58 → N.ICU 04:32 → N.TELEN 03-02 14:22
PROVIDERS: ADMIT Family Medicine; ATTEND Family Medicine